=== PATIENT | female | born 1940 | race Caucasian/White ===

== ENCOUNTER 2018-04-16 22:34 | Observation (INO) | payer MEDICARE, OTHER ==
[~2018-04-16] VITALS: Ht 165.1 cm; Wt 104.5 kg
[2018-04-16 23:01] LABS: BASOPHILS % (AUTO) 0 % (0-10); EOSINOPHILS % (AUTO) 0 % (0-10); HEMATOCRIT 40 % (35-52); HEMOGLOBIN 13.3 G/DL (11.5-16.0); LYMPHOCYTES # (AUTO) 1.8 X 10^3 (1.0-4.0); LYMPHOCYTES % (AUTO) 14 % (12-44); MEAN CORPUSCULAR HEMOGLOBIN 30 PG (25-34); MEAN CORPUSCULAR HGB CONC 34 G/DL (32-36); MEAN CORPUSCULAR VOLUME 90 FL (80-99); MONOCYTES # (AUTO) 1.3 X 10^3 (0.0-1.0); MONOCYTES % (AUTO) 10 % (0-12); NEUTROPHILS # (AUTO) 9.7 X 10^3 (1.8-7.8); NEUTROPHILS % (AUTO) 75 % (42-75); PLATELET COUNT 225 10^3/uL (130-400); WHITE BLOOD COUNT 12.8 10^3/uL (4.3-11.0)
--- NOTE | 2018-04-16 23:04 | ED Chest Pain ---
General Chief Complaint: Chest Pain Stated Complaint: CHEST PAIN Source: patient, family (daughter), EMS, longterm records ([facility] ) Exam Limitations: no limitations History of Present Illness Date Seen by Provider: Apr 16, 2018 Time Seen by Provider: 22:28 Initial Comments Chest Pain started 45 minutes prior to arrival. The patient resents by EMS from [facility] with chief complaint she was having some sharp chest pain in her left chest that radiated down to her epigastric region. She does not describe it as being burning and denies a history of GERD or acid reflux. She has no history of coronary disease. She has a fitter/welder and has had a cardiac catheterization Dr. Miranda at [place], [place]. She lived in [place] until a few weeks ago when she went to the hospital for her atrial fibrillation with rapid ventricular response had to be chemically cardioverted and after that was told she could not live alone so they moved her [facility] where her daughter works here in [place]. EMS did not give aspirin because the patient is a stated allergy to aspirin. They did however give her one nitroglycerin which took her pain to 0. She is not currently having any discomfort in her chest and is not reproducible by direct palpation. She said the pain is not worse with deep inspiration. She says she was getting up to brush her teeth and go to bed and started getting short of breath and having the pain and it got worse as she walked back to her chair and sat down. She denies a history of smoking, diabetes, thyroid disease, hyperlipidemia. She says she has a history of congestive heart failure and consistent swelling in her hands and feet and has to have wraps on her feet daily but she does not think that her weight has changed nor has her swelling increased in the last couple weeks. She denies a cough or using oxygen at baseline. She does have a history of COPD. Allergies and Home Medications Allergies Coded Allergies: lisinopril (Verified Allergy, Unknown, 04/16/18) metolazone (Verified Allergy, Unknown, 04/16/18) oxycodone (Verified Allergy, Unknown, 04/16/18) tramadol (Verified Allergy, Unknown, 04/16/18) valdecoxib (Verified Allergy, Unknown, 04/16/18) codeine (Verified Adverse Reaction, Unknown, 04/16/18) fentanyl (Verified Adverse Reaction, Unknown, 04/16/18) hydrocodone (Verified Adverse Reaction, Unknown, 04/16/18) morphine (Verified Adverse Reaction, Unknown, 04/16/18) Patient Home Medication List Home Medication List Reviewed: Yes Review of Systems Review of Systems Constitutional: No chills, No diaphoresis, No fever, No malaise EENTM: No Blurred Vision, No Double Vision Respiratory: Denies Cough, Denies Shortness of Air Cardiovascular: See HPI, Chest Pain; Denies Irregular Heart Rate, Denies Lightheadedness, Denies Palpitations, Denies Syncope Gastrointestinal: See HPI; Denies Abdomen Distended, Denies Abdominal Pain, Denies Constipated, Denies Diarrhea, Denies Nausea Genitourinary: Denies Burning, Denies Discharge, Denies Flank Pain Musculoskeletal: No back pain, No joint pain Past Aqxxgiv-Kciumg-Aoizgh Hx Patient Social History Alcohol Use: Denies Use Recreational Drug Use: No Smoking Status: Never a Smoker Recent Foreign Travel: No Contact w/Someone Who Travel: No Physical Exam Vital Signs Vital Signs - First Documented Capillary Refill : Height, Weight, BMI Height: '" Weight: lbs. oz. kg; BMI Method: General Appearance: No Apparent Distress, WD/WN HEENT: PERRL/EOMI, Pharynx Normal, Moist Mucous Membranes Respiratory: Chest Non Tender, Lungs Clear, Normal Breath Sounds, No Accessory Muscle Use, No Respiratory Distress Cardiovascular: No Gallop, Normal Peripheral Pulses, Systolic Murmur, Irregularly Irregular Gastrointestinal: Normal Bowel Sounds, Non Tender, Soft Extremity: Normal Capillary Refill, Normal Inspection, Pedal Edema (chronic 1+) Neurologic/Psychiatric: Alert, Oriented x3 Progress/Results/Core Measures Results/Orders Lab Results Laboratory Tests Test 04/16/18 22:39 04/17/18 02:24 Range/Units White Blood Count 12.8 H 4.3-11.0 10^3/uL Red Blood Count 4.37 4.35-5.85 10^6/uL Hemoglobin 13.3 11.5-16.0 G/DL Hematocrit 40 35-52 % Mean Corpuscular Volume 90 80-99 FL Mean Corpuscular Hemoglobin 30 25-34 PG Mean Corpuscular Hemoglobin Concent 34 32-36 G/DL Red Cell Distribution Width 18.0 H 10.0-14.5 % Platelet Count 225 130-400 10^3/uL Mean Platelet Volume 12.0 H 7.4-10.4 FL Neutrophils (%) (Auto) 75 42-75 % Lymphocytes (%) (Auto) 14 12-44 % Monocytes (%) (Auto) 10 0-12 % Eosinophils (%) (Auto) 0 0-10 % Basophils (%) (Auto) 0 0-10 % Neutrophils # (Auto) 9.7 H 1.8-7.8 X 10^3 Lymphocytes # (Auto) 1.8 1.0-4.0 X 10^3 Monocytes # (Auto) 1.3 H 0.0-1.0 X 10^3 Eosinophils # (Auto) 0.0 0.0-0.3 10^3/uL Basophils # (Auto) 0.0 0.0-0.1 10^3/uL Prothrombin Time 15.9 H 12.2-14.7 SEC INR Comment 1.3 0.8-1.4 Activated Partial Thromboplast Time 26 24-35 SEC Sodium Level 142 135-145 MMOL/L Potassium Level 3.3 L 3.6-5.0 MMOL/L Chloride Level 96 L 98-107 MMOL/L Carbon Dioxide Level 32 21-32 MMOL/L Anion Gap 14 5-14 MMOL/L Blood Urea Nitrogen 27 H 7-18 MG/DL Creatinine 1.04 0.60-1.30 MG/DL Estimat Glomerular Filtration Rate 51 BUN/Creatinine Ratio 26 Glucose Level 112 H 70-105 MG/DL Calcium Level 8.7 8.5-10.1 MG/DL Corrected Calcium 9.4 8.5-10.1 MG/DL Magnesium Level 2.0 1.8-2.4 MG/DL Total Bilirubin 0.7 0.1-1.0 MG/DL Aspartate Amino Transf (AST/SGOT) 36 H 5-34 U/L Alanine Aminotransferase (ALT/SGPT) 35 0-55 U/L Alkaline Phosphatase 84 40-136 U/L Myoglobin 66.7 10.0-92.0 NG/ML Troponin I 0.044 <0.028 NG/ML B-Type Natriuretic Peptide 101.6 H <100.0 PG/ML Total Protein 6.0 L 6.4-8.2 GM/DL Albumin 3.1 L 3.2-4.5 GM/DL Lipase 50 8-78 U/L My Orders Orders - LEX CAAL Cbc With Automated Diff (04/16/18 22:53) Magnesium (04/16/18 22:53) Chest 1 View, Ap/Pa Only (04/16/18 22:53) Ekg Tracing (04/16/18 22:53) Cardiac Profile 1 (04/16/18 22:53) Comprehensive Metabolic Panel (04/16/18 22:53) Myoglobin Serum (04/16/18 22:53) Protime With Inr (04/16/18 22:53) Partial Thromboplastin Time (04/16/18 22:53) O2 (04/16/18 22:53) Monitor-Rhythm Ecg Trace Only (04/16/18:53) Lipid Panel (04/17/18 06:00) Saline Lock/Iv-Start (04/16/18 22:53) Lipase (04/16/18 22:53) BNP (04/16/18 22:53) Vital Signs/I&O 04/16/18 04/16/18 22:35 22:35 Temp 98.6 Pulse 85 Resp 24 B/P (MAP) 139/88 (105) Pulse Ox 95 O2 Delivery Room Air Room Air Progress Progress Note : Time: 23:04 Progress Note No aspirin secondary to allergy. She's comfortable right now but if her pain comes back we'll try GI cocktail. EKG demonstrates her baseline A. fib without rapid ventricular response. We'll check a BNP, lipase, labs chest x-ray. ED ACS 16 points. Not low risk. This patient is not a candidate for early discharge and should receive a standard chest pain evaluation with delayed troponin testing. Initial ECG Impression Date: Apr 16, 2018 Initial ECG Impression Time: 22:33 Initial ECG Rate: 80 Initial ECG Rhythm: A Fib/Flutter Initial ECG Intervals: QT (490) Initial ECG Impression: Atrial Fibrillation Initial ECG Comparisson: No Previous ECG Available Comment Atrial fibrillation without rapid ventricular response. No ST elevation or depression area Diagnostic Imaging Diagonstic Imaging: Xray Plain Films/CT/US/NM/MRI: chest (1v) Comments No acute cardiopulmonary process noted. Reviewed: Reviewed by Me Departure Communication (Admissions) Time/Spoke to Admitting Phy: 03:40 Discussed case lab EKG imaging findings with Dr. Fonseca she agrees to observe the patient. Time/Spoke to Consulting Phy: 03:25 Discussed case lab imaging findings and EKG with Dr. Oliveira and he agrees with an observation stay for chest pain rule out ACS. Impression Primary Impression: Chest pain Qualified Codes: R07.9 - Chest pain, unspecified Additional Impressions: ACS (acute coronary syndrome) History of atrial fibrillation Disposition: ADMITTED INPATIENT Condition: Stable Admissions Decision to Admit Reason: Admit from ER (General) Decision to Admit/Date: Apr 17, 2018 Time/Decision to Admit Time: 03:38 Departure-Patient Inst. Referrals: RAMIRO LEE MD (PCP/Family) Primary Care Physician Copy Copies To 1: RAMIRO LEE MD, TITUS J Apr 16, 2018 23:04
[2018-04-17] VITALS (9 sets, daily range): BP systolic 104–134; BP diastolic 65–79
[2018-04-17 02:40] LABS: INR 1.3 (0.8-1.4); PROTHROMBIN TIME PATIENT 15.9 SEC (12.2-14.7)
[2018-04-17 02:48] LABS: ALBUMIN 3.1 GM/DL (3.2-4.5); BILIRUBIN,TOTAL 0.7 MG/DL (0.1-1.0); CALCIUM 8.7 MG/DL (8.5-10.1); CREATININE SERUM 1.04 MG/DL (0.60-1.30); POTASSIUM 3.3 MMOL/L (3.6-5.0)
[2018-04-17 02:54] LABS: MYOGLOBIN SERUM 66.7 NG/ML (10.0-92.0)
--- NOTE | 2018-04-17 04:40 | NUR ---
MAUDE MORALES admitted to room 412-1, with an admitting diagnosis of chest pain, on 04/17/18 from AM via , accompanied by staff.MAUDE MORALES introduced to surroundings, call light, bed controls, phone, TV, temperature control, lights, meal times, smoking policy, visitor policy, side rail policy, bathrooms and showers. Patient Rights given to patient in the handbook. MAUDE MORALES verbalizes understanding that [facility] is not responsible for the loss or damage to any personal effects or valuables that are kept in the patients posession during their hospitalization.
[2018-04-17] MEDS ORDERED: ANTACID SUSP 30 ML UDC (MYLANTA) PO PRN (05:30)
[2018-04-17] MEDS ORDERED: BENZONATATE 100 MG (TESSALON) CAPSULE PO PRN ×2 (05:30→11:00)
[2018-04-17] MEDS ORDERED: ONDANSETRON 4 MG/2 ML (SDV) Z0FRAN IV PRN (05:30)
[2018-04-17] MEDS ORDERED: ACETAMINOPHEN 500 MG TAB (TYLENOL) PO PRN (05:30)
[2018-04-17] MEDS ORDERED: NS W/KCL 20 MEQ/L 1,000 ML IV SCH (05:30)
--- NOTE | 2018-04-17 05:49 | Diagnostic Imaging Report ---
INDICATION: Chest pain. COMPARISON: None FINDINGS: Single frontal view of the chest demonstrates normal heart size and pulmonary vascularity. The lungs are well aerated and clear. No large pleural effusion or pneumothorax is seen. The visualized osseous structures show no acute abnormalities. IMPRESSION: 1. No acute cardiopulmonary process. Dictated by: Dictated on workstation # [id number]
[2018-04-17] MEDS: ISOSORBIDE MONONITRATE 30 MG (IMDUR) TAB PO SCH ×2 (06:30→09:52)
[2018-04-17] MEDS ORDERED: RT-ALBUTEROL/IPRATROPIUM 3 ML (DUONEB) VIAL INH PRN (08:15)
[2018-04-17] MEDS ORDERED: SPIRONOLACTONE 25 MG (ALDACTONE) TAB PO SCH (09:00)
[2018-04-17] MEDS ORDERED: BUMETANIDE 1 MG (BUMEX) TAB PO SCH (09:00)
[2018-04-17] MEDS ORDERED: APIXABAN 5 MG (ELIQUIS) TABLET PO SCH ×2 (09:00→21:00)
[2018-04-17] MEDS ORDERED: RT-ALBUTEROL/IPRATROPIUM 3 ML (DUONEB) VIAL INH SCH (09:00)
[2018-04-17] MEDS ORDERED: SERTRALINE 50 MG (ZOLOFT) TABLET PO SCH (09:00)
[2018-04-17] MEDS ORDERED: meTOprolol TARTRATE 25 MG (LOPRESSOR) TABLET PO SCH (09:00)
[2018-04-17] MEDS ORDERED: DULoxetine 30 MG (CYMBALTA) CAP PO SCH (09:00)
[2018-04-17] MEDS ORDERED: DILTIAZEM 60 MG (CARDIZEM) TAB PO SCH (09:00)
[2018-04-17] MEDS ORDERED: ISOS30TA3 PO (09:13)
[2018-04-17] MEDS ORDERED: DILT60TA PO (09:13)
[2018-04-17] MEDS ORDERED: BUME2TAB3 PO (09:13)
[2018-04-17] MEDS ORDERED: LEVO750T39 PO (09:13)
[2018-04-17] MEDS ORDERED: MAGN400T39 PO (09:13)
[2018-04-17] MEDS ORDERED: [UNRECOGNIZED DRUG - CODE] MM (09:13)
[2018-04-17] MEDS ORDERED: APIX5TAB PO (09:13)
[2018-04-17] MEDS ORDERED: DULO60CA58 PO (09:13)
[2018-04-17] MEDS ORDERED: NYST1000 PO (09:13)
[2018-04-17] MEDS ORDERED: ONDA4TAB10 PO (09:13)
[2018-04-17] MEDS ORDERED: MAGIC MOUTHWASH PO (09:13)
[2018-04-17] MEDS ORDERED: BENZ9GEL3 MM (09:13)
[2018-04-17] MEDS ORDERED: PRD20T PO (09:13)
[2018-04-17] MEDS ORDERED: BENZ-36 PO (09:13)
[2018-04-17] MEDS ORDERED: ALB0.5V NEB (09:13)
[2018-04-17] MEDS ORDERED: BUDE10.2 INH (09:13)
[2018-04-17] MEDS ORDERED: ROPI1TAB2 PO (09:13)
[2018-04-17] MEDS ORDERED: POTA20TA15 PO (09:13)
[2018-04-17] MEDS ORDERED: ACET-2267 PO (09:13)
[2018-04-17] MEDS ORDERED: EST30C VG (09:13)
[2018-04-17] MEDS ORDERED: GUAI120013 PO (09:13)
[2018-04-17] MEDS ORDERED: SERT50TA9 PO (09:13)
[2018-04-17] MEDS ORDERED: SPIR25TA5 PO (09:13)
[2018-04-17] MEDS ORDERED: DOXY100T2 PO (09:13)
[2018-04-17] MEDS ORDERED: CALC300T4 PO (09:13)
[2018-04-17] MEDS ORDERED: DRY MOUTH MM (09:19)
--- NOTE | 2018-04-17 09:19 | NUR ---
UPDATED MED REC WITH MAR FROM ROSALEE LIAM
--- NOTE | 2018-04-17 09:59 | Consultation-Cardiology ---
HPI-Cardiology Cardiology Consultation Date of Consultation 04/17/18 Date of Admission Time Seen by Provider: 09:55 Indication: chest pain HPI 77-year-old lady with history of paroxysmal atrial fibrillation, history of chest pain, hypertension. Had an episode of chest pain yesterday evening lasted for few minutes and resolved spontaneously, patient was brought to the emergency room by EMS, since arrival did not have any further episodes of chest pain. Denied any palpitation. Syncope or near syncopal episodes. No claudications. She reported having cardiac catheterization done about [address] Miranda and it was normal, had a cardioversion done 3 weeks ago in [place] and she moved into [facility] Home Medications & Allergies Allergies: Coded Allergies: lisinopril (Verified Allergy, Unknown, 04/16/18) metolazone (Verified Allergy, Unknown, 04/16/18) oxycodone (Verified Allergy, Unknown, 04/16/18) tramadol (Verified Allergy, Unknown, 04/16/18) valdecoxib (Verified Allergy, Unknown, 04/16/18) codeine (Verified Adverse Reaction, Unknown, 04/16/18) fentanyl (Verified Adverse Reaction, Unknown, 04/16/18) hydrocodone (Verified Adverse Reaction, Unknown, 04/16/18) morphine (Verified Adverse Reaction, Unknown, 04/16/18) Home Medication List Reviewed: Yes ZKA-Phunwi-Atizcg Hx Patient Social History Employed/Student: retired Alcohol Use: Denies Use Recreational Drug Use: No Smoking Status: Never a Smoker Recent Foreign Travel: No Recent Infectious Disease Expo: No Recent Hopitalizations: No Physical Abuse Screen: No Sexual Abuse: No Immunizations Up To Date Date of Pneumonia Vaccine: Mar 24, 2018 Date of Influenza Vaccine: Apr 03, 2018 Past Medical History past medical history as described below Family Medical History Family Medical Hx noncontributory to her current medication Review of Systems Constitutional: no symptoms reported, see HPI EENTM: see HPI, no symptoms reported Respiratory: see HPI; No cough, No dyspnea on exertion, No hemoptysis, No orthopnea, No phlegm, No short of breath, No stridor, No wheezing, No other Cardiovascular: see HPI, chest pain; No edema, No Hx of Intervention, No palpitations, No syncope, No vascular heart diseas, No other Gastrointestinal: no symptoms reported, see HPI Genitourinary: no symptoms reported, see HPI Musculoskeletal: no symptoms reported, see HPI Skin: no symptoms reported, see HPI Psychiatric/Neurological: No Symptoms Reported, See HPI Reviewed Test Results Reviewed Test Results Lab Laboratory Tests Test 04/16/18 22:39 04/17/18 02:24 Range/Units White Blood Count 12.8 H 4.3-11.0 10^3/uL Red Blood Count 4.37 4.35-5.85 10^6/uL Hemoglobin 13.3 11.5-16.0 G/DL Hematocrit 40 35-52 % Mean Corpuscular Volume 90 80-99 FL Mean Corpuscular Hemoglobin 30 25-34 PG Mean Corpuscular Hemoglobin Concent 34 32-36 G/DL Red Cell Distribution Width 18.0 H 10.0-14.5 % Platelet Count 225 130-400 10^3/uL Mean Platelet Volume 12.0 H 7.4-10.4 FL Neutrophils (%) (Auto) 75 42-75 % Lymphocytes (%) (Auto) 14 12-44 % Monocytes (%) (Auto) 10 0-12 % Eosinophils (%) (Auto) 0 0-10 % Basophils (%) (Auto) 0 0-10 % Neutrophils # (Auto) 9.7 H 1.8-7.8 X 10^3 Lymphocytes # (Auto) 1.8 1.0-4.0 X 10^3 Monocytes # (Auto) 1.3 H 0.0-1.0 X 10^3 Eosinophils # (Auto) 0.0 0.0-0.3 10^3/uL Basophils # (Auto) 0.0 0.0-0.1 10^3/uL Prothrombin Time 15.9 H 12.2-14.7 SEC INR Comment 1.3 0.8-1.4 Activated Partial Thromboplast Time 26 24-35 SEC Sodium Level 142 135-145 MMOL/L Potassium Level 3.3 L 3.6-5.0 MMOL/L Chloride Level 96 L 98-107 MMOL/L Carbon Dioxide Level 32 21-32 MMOL/L Anion Gap 14 5-14 MMOL/L Blood Urea Nitrogen 27 H 7-18 MG/DL Creatinine 1.04 0.60-1.30 MG/DL Estimat Glomerular Filtration Rate 51 BUN/Creatinine Ratio 26 Glucose Level 112 H 70-105 MG/DL Calcium Level 8.7 8.5-10.1 MG/DL Corrected Calcium 9.4 8.5-10.1 MG/DL Magnesium Level 2.0 1.8-2.4 MG/DL Total Bilirubin 0.7 0.1-1.0 MG/DL Aspartate Amino Transf (AST/SGOT) 36 H 5-34 U/L Alanine Aminotransferase (ALT/SGPT) 35 0-55 U/L Alkaline Phosphatase 84 40-136 U/L Myoglobin 66.7 10.0-92.0 NG/ML Troponin I 0.044 <0.028 NG/ML B-Type Natriuretic Peptide 101.6 H <100.0 PG/ML Total Protein 6.0 L 6.4-8.2 GM/DL Albumin 3.1 L 3.2-4.5 GM/DL Lipase 50 8-78 U/L Physical Exam Vital Signs Vital Signs - First Documented Capillary Refill : Less Than 3 Seconds Height, Weight, BMI Height: 5'5.00" Weight: 230lbs. 5.0oz. [id number]; 38.3 BMI Method:Stated General Appearance: No Apparent Distress, WD/WN Eyes: Bilateral Eye Normal Inspection, Bilateral Eye PERRL, Bilateral Eye EOMI HEENT: PERRL/EOMI, TMs Normal, Normal ENT Inspection, Pharynx Normal Neck: Full Range of Motion, Normal Inspection, Non Tender, Supple, Carotid Bruit Respiratory: Chest Non Tender, Lungs Clear, Normal Breath Sounds, No Accessory Muscle Use, No Respiratory Distress Cardiovascular: Regular Rate, Rhythm, No Edema, No Gallop, No JVD, No Murmur, Normal Peripheral Pulses Gastrointestinal: Normal Bowel Sounds, No Organomegaly, No Pulsatile Mass, Non Tender, Soft Back: Normal Inspection, No CVA Tenderness, No Vertebral Tenderness Extremity: Normal Capillary Refill, Normal Inspection, Normal Range of Motion, Non Tender, No Calf Tenderness, No Pedal Edema Neurologic/Psychiatric: Alert, Oriented x3, No Motor/Sensory Deficits, Normal Mood/Affect Skin: Normal Color, Warm/Dry Lymphatic: No Adenopathy A/P-Cardiology Admission Diagnosis Chest pain Right bundle branch block Atrial fibrillation Hypertension Assessment/Plan Chest pain nonspecific etiology, atypical in presentation, no further episodes were noted, EKG showed baseline right bundle branch block, cardiac enzymes were negative. Reporting having cardiac catheterization about 2 years ago in [place] and it was normal, did not require any stenting. Okay for discharge from cardiology standpoint and follow-up as an outpatient Paroxysmal atrial fibrillation, maintained on Cardizem and Eliquis, using short acting Cardizem once a day, has been following with Dr. Miranda, requesting to transfer to my service. I will arrange for appointment as an outpatient Hypertension, restart home medication monitor blood pressure Hyperlipidemia, monitor lipids Depression/anxiety Okay for discharge from cardiology standpoint and follow-up as an outpatient Clinical Quality Measures DVT/VTE Risk/Contraindication: Risk Factor Score Per Nursin RFS Level Per Nursing on Admit: 4+=Very High TAE PANDA MD Apr 17, 2018 09:59
[2018-04-17] MEDS ORDERED: NON-FORMULARY MEDICATION 1 EA EA (Ondansetron HCl 4 MG) PO PRN (10:00)
[2018-04-17] MEDS ORDERED: NON-FORMULARY MEDICATION 1 EA EA (Acetaminophen (Tylenol Extra Strength) 1,000 MG) PO PRN (10:00)
[2018-04-17] MEDS ORDERED: ONDANSETRON 4 MG (ZOFRAN) ORAL DISSOLVE TAB PO PRN (10:15)
--- NOTE | 2018-04-17 10:34 | Short Stay Summary-Hospitalist ---
History of Present Illness HPI/Chief Complaint CC: Chest pain HPI: This is a 77yoWF newly moved to [place] from [place] who presented to the ER w/chest pain. Patient was admitted to rule out ACS. Patient currently without chest pain and in the midst of DC. Source: patient Exam Limitations: no limitations Date Seen 04/17/18 Time Seen by a Provider: 10:00 Attending Physician Ida Fonseca DO PCP Isiah Sharpe MD Referring Physician Date of Admission Apr 17, 2018 at 03:45 Home Medications & Allergies Home Medications Reviewed patient Home Medication Reconciliation performed by pharmacy medication reconciliations orthophotography technician and/or nursing. Patients Allergies have been reviewed. Allergies Allergies Coded Allergies lisinopril (Verified Allergy, Unknown, 04/16/18) metolazone (Verified Allergy, Unknown, 04/16/18) oxycodone (Verified Allergy, Unknown, 04/16/18) tramadol (Verified Allergy, Unknown, 04/16/18) valdecoxib (Verified Allergy, Unknown, 04/16/18) codeine (Verified Adverse Reaction, Unknown, 04/16/18) fentanyl (Verified Adverse Reaction, Unknown, 04/16/18) hydrocodone (Verified Adverse Reaction, Unknown, 04/16/18) morphine (Verified Adverse Reaction, Unknown, 04/16/18) Past Mbzjolp-Mylkej-Dwoqpj Hx Past Med/Social Hx: Reviewed Nursing Past Med/Soc Hx, Reviewed and Corrections made Patient Social History Marrital Status: single Employed/Student: retired Alcohol Use: Denies Use Recreational Drug Use: No Smoking Status: Never a Smoker Physical Abuse Screen: No Sexual Abuse: No Recent Foreign Travel: No Contact w/other who traveled: No Recent Hopitalizations: No Recent Infectious Disease Expo: No Immunizations Up To Date Date of Pneumonia Vaccine: Mar 24, 2018 Date of Influenza Vaccine: Apr 03, 2018 Seasonal Allergies Seasonal Allergies: No Past Medical History Surgeries: Bladder Surgery, Cardiac, Eye Surgery, Joint Replacement, Rectal Currently Using CPAP: No Currently Using BIPAP: No Cardiac: Atrial Fibrillation, Hypertension Neurological: TIA HEENT: Cataract, Macular Degeneration, Double Vision History of Blood Disorders: No Review of Systems Constitutional: see HPI, weakness EENTM: no symptoms reported Respiratory: no symptoms reported Cardiovascular: chest pain Gastrointestinal: no symptoms reported Genitourinary: no symptoms reported Musculoskeletal: no symptoms reported Skin: no symptoms reported Psychiatric/Neurological: No Symptoms Reported All Other Systems Reviewed Negative Unless Noted: Yes Physical Exam Physical Exam Vital Signs Vital Signs - First Documented Capillary Refill : Less Than 3 Seconds Height, Weight, BMI Height: 5'5.00" Weight: 230lbs. 5.0oz. [id number]; 38.3 BMI Method:Stated General Appearance: No Apparent Distress, WD/WN, Chronically ill, Obese Eyes: Bilateral Eye Normal Inspection, Bilateral Eye PERRL, Bilateral Eye EOMI HEENT: PERRL/EOMI, TMs Normal, Normal ENT Inspection, Pharynx Normal Neck: Full Range of Motion, Normal Inspection, Non Tender, Supple, Carotid Bruit Respiratory: Chest Non Tender, Lungs Clear, Normal Breath Sounds, No Accessory Muscle Use, No Respiratory Distress Cardiovascular: No Edema, No Gallop, No JVD, No Murmur, Normal Peripheral Pulses, Irregularly Irregular Gastrointestinal: Normal Bowel Sounds, No Organomegaly, No Pulsatile Mass, Non Tender, Soft Back: Normal Inspection, No CVA Tenderness, No Vertebral Tenderness Extremity: Normal Capillary Refill, Normal Inspection, Normal Range of Motion, Non Tender, No Calf Tenderness, No Pedal Edema Neurologic/Psychiatric: Alert, Oriented x3, No Motor/Sensory Deficits, Normal Mood/Affect Skin: Normal Color, Warm/Dry Lymphatic: No Adenopathy Results Results/Procedures Labs Laboratory Tests 04/16/18 22:39 04/17/18 02:24 Patient resulted labs reviewed. Short Stay Diagnosis Discharge Diagnosis-Short Stay Admission Diagnosis Assessment: Chest pain AF HTN Final Discharge Diagnosis Assessment: Chest pain AF HTN Conclusion Plan Plan: No evidence of ACS DC home PCP in 1 week Diagnosis/Problems Diagnosis/Problems (1) Chest pain Status: Acute Qualifiers: Qualified Codes: R07.9 - Chest pain, unspecified (2) History of atrial fibrillation Status: Chronic (3) ACS (acute coronary syndrome) Status: Resolved Resolution Date/Time: 04/17/18 @ 14:28 Clinical Quality Measures DVT/VTE Risk/Contraindication: Risk Factor Score Per Nursin RFS Level Per Nursing on Admit: 4+=Very High IDA FONSECA DO Apr 17, 2018 10:34
[2018-04-17] MEDS ORDERED: RT-ALBUTEROL SULF 2.5 MG/3 ML PRE-MIX VIAL IH SCH (10:45)
[2018-04-17] MEDS ORDERED: MENTHOL MM PRN (10:45)
[2018-04-17] MEDS ORDERED: CALCIUM CARBONATE PO PRN (10:45)
[2018-04-17] MEDS ORDERED: BENZONATATE 100 MG PO PRN (10:45)
[2018-04-17] MEDS ORDERED: CALCIUM CARBONATE 500 MG (TUMS) TAB.CHEW PO PRN (11:00)
[2018-04-17] MEDS ORDERED: CHLORASEPTIC LOZENGE MM PRN (11:15)
[2018-04-17] MEDS ORDERED: KCL 20 MEQ TAB (K-DUR) PO SCH (12:00)
[2018-04-17] MEDS ORDERED: ATOR40TA PO (12:44)
[2018-04-17] MEDS ORDERED: METO-333 PO (12:44)
[2018-04-17] MEDS ORDERED: NYSTATIN PO SCH (13:00)
[2018-04-17] MEDS ORDERED: NYSTATIN ORAL SUSP 5 ML UDC PO SCH (13:00)
--- NOTE | 2018-04-17 13:30 | NUR ---
discharge instructions given, verbalized understanding of follow up with Dr Oliveira and new prescriptions, denies pain or sob, IV dc, site without redness or swelling, telemetry dc, report called to jovanny
--- NOTE | 2018-04-17 14:32 | NUR ---
MAUDE MORALES demonstrates understanding of discharge instructions and accurately returns instructions upon questioning. Copy of Post-Discharge Instructions and Medication Discharge Instructions given to patient. MAUDE MORALES is able to manage continuing needs after discharge at [facility]. Patients belongings returned to Patient. Skin dry and intact; no breakdown noted. Patient discharged from [facility]- on04/17/18 at 1425. MAUDE MORALES left floor via W/C, accompanied by staff.
[2018-04-17] MEDS ORDERED: RT-ADVAIR HFA 115/21 MCG PER PUFF IH SCH (20:00)
[2018-04-17] MEDS ORDERED: NON-FORMULARY MEDICATION 1 EA EA (Guaifenesin (Mucinex) 1,200 MG) PO SCH (21:00)
[2018-04-17] MEDS ORDERED: ATORVASTATIN 40 MG (LIPITOR) TABLET PO SCH (21:00)
[2018-04-17] MEDS ORDERED: NON-FORMULARY MEDICATION 1 EA EA (Bumetanide 2 MG) PO SCH (21:00)
[2018-04-17] MEDS ORDERED: guaiFENesin (MUCINEX) 600 MG TAB PO SCH (21:00)
[2018-04-17] MEDS ORDERED: ESTROGENS CONJ. CREAM 30 GM (PREMARIN) TUBE VG SCH (21:00)
[2018-04-17] MEDS ORDERED: DOXYCYCLINE 100 MG (VIBRAMYCIN) TABLET PO SCH (21:00)
[2018-04-17] MEDS ORDERED: rOPINIRole 1 MG (REQUIP) TABLET PO SCH (21:00)
[2018-04-17] MEDS ORDERED: NON-FORMULARY MEDICATION 1 EA EA (Budesonide/Formoterol Fumarate (Symbicort 160-4.5 Mcg In INH SCH (21:00)
[2018-04-17] MEDS ORDERED: NON-FORMULARY MEDICATION 1 EA EA (Doxycycline Hyclate 100 MG) PO SCH (21:00)
[2018-04-17] MEDS ORDERED: NON-FORMULARY MEDICATION 1 EA EA (Ropinirole HCl 1 MG) PO SCH (21:00)
[2018-04-18] MEDS ORDERED: predniSONE 20 MG TAB PO SCH (08:00)
[2018-04-18] MEDS ORDERED: MAGNESIUM OXIDE (MAG-OX)400 MG TAB PO SCH (08:00)
[2018-04-18] MEDS ORDERED: ISOSORBIDE MONONITRATE 30 MG (IMDUR) TAB PO SCH (09:00)
[2018-04-18] MEDS ORDERED: NON-FORMULARY MEDICATION 1 EA EA (Duloxetine HCl 60 MG) PO SCH (09:00)
[2018-04-18] MEDS ORDERED: SPIRONOLACTONE 25 MG (ALDACTONE) TAB PO SCH (09:00)
[2018-04-18] MEDS ORDERED: NON-FORMULARY MEDICATION 1 EA EA (Magnesium Oxide (Magnesium) 400 MG) PO SCH (09:00)
[2018-04-18] MEDS ORDERED: DILTIAZEM 60 MG (CARDIZEM) TAB PO SCH (09:00)
[2018-04-18] MEDS ORDERED: SERTRALINE 50 MG (ZOLOFT) TABLET PO SCH (09:00)
== END 2018-04-17 14:37 ==
LOC: ER 22:36 → 4TH 04-17 03:45
PROVIDERS: ADMIT Internal Medicine; ATTEND Internal Medicine
DX: I24.9 Acute ischemic heart disease, unspecified (principal); R07.9 Chest pain, unspecified; I48.2 Chronic atrial fibrillation; I10 Essential (primary) hypertension; Z88.5 Allergy status to narcotic agent; Z88.8 Allergy status to other drugs, medicaments and biological substances; E78.5 Hyperlipidemia, unspecified; F41.9 Anxiety disorder, unspecified; Z66 Do not resuscitate; F32.9 Major depressive disorder, single episode, unspecified
CPT/HCPCS: 36415; 71045; 80053; 83690; 83735; 83874; 83880; 84484; 85025; 85610; 85730; 93005; 93041; 94640; 94760

== ENCOUNTER → 2018-05-12 | Outpatient (CLI) | payer MEDICARE, OTHER ==
[~2018-05-12] MED LIST: ACET-2267 PO; ALB0.5V NEB; APIX5TAB PO; ATOR40TA PO; BENZ-36 PO; BENZ9GEL3 MM; BUDE10.2 INH; BUME2TAB3 PO; CALC300T4 PO; DILT60TA PO; DOXY100T2 PO; DRY MOUTH MM; DULO60CA58 PO; EST30C VG; GUAI120013 PO; ISOS30TA3 PO; LEVO750T39 PO; MAGIC MOUTHWASH PO; MAGN400T39 PO; METO-333 PO; NYST1000 PO; ONDA4TAB10 PO; POTA20TA15 PO; PRD20T PO; ROPI1TAB2 PO; SERT50TA9 PO; SPIR25TA5 PO; [UNRECOGNIZED DRUG - CODE] MM
[2018-05-12 15:36] LABS: ABG BASE EXCESS 8.9 MMOL/L (-2.5-2.5); ABG OXYGEN SATURATION 95 % (94-100); ABG PCO2 43 MMHG (35-45); ABG PH 7.49 (7.37-7.43); ABG PO2 71 MMHG (79-93); ALLENS TEST POSITIVE; INSPIRED O2 ROOM AIR; VENTILATOR NO
[2018-05-12 15:37] LABS: PATIENT TEMP 98.7
== END ==
LOC: RT 14:59
PROVIDERS: ATTEND Nurse Practitioner Family
DX: R05 Cough (principal); R06.89 Other abnormalities of breathing
CPT/HCPCS: 36600; 82805

== ENCOUNTER → 2018-06-08 | Outpatient (CLI) | payer MEDICARE, OTHER | LOC: CARD 10:25 | PROVIDERS: ATTEND Physician Assistant | DX: R07.89 Other chest pain (principal); I48.0 Paroxysmal atrial fibrillation; I10 Essential (primary) hypertension; R06.00 Dyspnea, unspecified | CPT/HCPCS: 93306 ==

== ENCOUNTER → 2018-06-10 | Outpatient (CLI) | payer MEDICARE, OTHER ==
[~2018-06-10] MED LIST changes: +RT-ALBUTEROL SULF 2.5 MG/3 ML PRE-MIX VIAL INH ONE; +RT-ALBUTEROL SULF 2.5 MG/3 ML PRE-MIX VIAL ONE
--- NOTE | 2018-06-10 14:50 | Diagnostic Imaging Report ---
PROCEDURE: CT chest without contrast. TECHNIQUE: Multiple contiguous axial images were obtained through the chest without the use of intravenous contrast. Auto Exposure Controls were utilized during the CT exam to meet ALARA standards for radiation dose reduction. INDICATION: Cough. No prior studies are available for comparison. No axillary lymphadenopathy is seen. No definite hilar or mediastinal lymphadenopathy is identified. There are coronary arterial calcifications. No pericardial or pleural fluid is identified. The central airways are patent. Parenchymal evaluation demonstrates calcified nodule in the left upper lobe consistent with granuloma. There is some linear scarring or subsegmental atelectasis both lung bases. No infiltrates or masses are seen. Upper abdomen is unremarkable. IMPRESSION: Essentially unremarkable noncontrast CT of the chest. No thoracic lymphadenopathy or evidence of pulmonary mass is identified. Dictated by: Dictated on workstation # [id number]
== END ==
LOC: RAD 11:26
PROVIDERS: ATTEND Nurse Practitioner Family
DX: I48.91 Unspecified atrial fibrillation (principal); J98.4 Other disorders of lung; G47.10 Hypersomnia, unspecified; G47.50 Parasomnia, unspecified
CPT/HCPCS: 71250; 94060; 94726; 94729

== ENCOUNTER → 2018-09-02 | Outpatient (CLI) | payer MEDICARE, MEDICAID ==
[~2018-09-02] VITALS: Ht 165.1 cm; Wt 120.2 kg
[~2018-09-02] MED LIST changes: +CATHETER FLUSH 10 ML SYR IV PRN; +REGADENOSON 0.4 MG/5 ML SYR (LEXISCAN) IV ONE; -RT-ALBUTEROL SULF 2.5 MG/3 ML PRE-MIX VIAL INH ONE; -RT-ALBUTEROL SULF 2.5 MG/3 ML PRE-MIX VIAL ONE
== END ==
LOC: CARD 11:58
PROVIDERS: ATTEND Internal Medicine Cardiovascular Disease
DX: R07.89 Other chest pain (principal); R06.00 Dyspnea, unspecified; I10 Essential (primary) hypertension; E78.2 Mixed hyperlipidemia; G45.9 Transient cerebral ischemic attack, unspecified

== ENCOUNTER → 2018-09-12 | Emergency (ER) | payer MEDICARE, MEDICAID ==
[~2018-09-12] VITALS: Ht 165.1 cm; Wt 115.2 kg
[~2018-09-12] MED LIST changes: +ACETAMINOPHEN 500 MG TAB (TYLENOL) PO PRN; +ATOR40TA70 PO; -CATHETER FLUSH 10 ML SYR IV PRN; +CEFD300C3 PO; +CYCL5TAB PO; +DILT120C94 PO; +FURO20TA4 PO; +FURO40TA4 PO; +LEVA15HF5 INH; +LORA10TA76 PO; +NYST15OI13 TOP; +ONDA4TAB11 PO; -REGADENOSON 0.4 MG/5 ML SYR (LEXISCAN) IV ONE; +TAPE50TA2 PO; +cefTRIAXone FOR IV USE 1,000 MG in WATER (STERILE) FOR INJECTION 10 ML IV ONE
--- OUTSIDE RECORDS SUMMARY | 2018-09-12 14:35 | XMS REPORT | Continuity of Care Document ---
Author Organization Unknown Address Unknown Allergies Active Description Code Type Severity Reaction Onset Reported/Identified Relationship to Patient Clinical Status Yes codeine [id number] Drug Allergy Unknown N/A 04/16/2018 Yes fentanyl [id number] Drug Allergy Unknown N/A 04/16/2018 Yes hydrocodone [id number] Drug Allergy Unknown N/A 04/16/2018 Yes lisinopril [id number] Drug Allergy Unknown N/A 04/16/2018 Yes metolazone [id number] Drug Allergy Unknown N/A 04/16/2018 Yes morphine [id number] Drug Allergy Unknown N/A 04/16/2018 Yes oxycodone [id number] Drug Allergy Unknown N/A 04/16/2018 Yes tramadol [id number] Drug Allergy Unknown N/A 04/16/2018 Yes valdecoxib [id number] Drug Allergy Unknown N/A 04/16/2018 Medications There is no data. Problems Date Dx Coded Attending Type Code Diagnosis Diagnosed By 04/17/2018 DORY LIN DO Ot E78.5 HYPERLIPIDEMIA, UNSPECIFIED 04/17/2018 DORY LIN DO Ot F32.9 MAJOR DEPRESSIVE DISORDER, SINGLE EPISOD 04/17/2018 DORY LIN DO Ot F41.9 ANXIETY DISORDER, UNSPECIFIED 04/17/2018 DORY LIN DO Ot I10 ESSENTIAL (PRIMARY) HYPERTENSION 04/17/2018 DORY LIN DO Ot I24.9 ACUTE ISCHEMIC HEART DISEASE, UNSPECIFIE 04/17/2018 DORY LIN DO Ot I48.2 CHRONIC ATRIAL FIBRILLATION 04/17/2018 DORY LIN DO Ot R07.9 CHEST PAIN, UNSPECIFIED 04/17/2018 DORY LIN DO Ot Z66 DO NOT RESUSCITATE 04/17/2018 DORY LIN DO Ot Z88.5 ALLERGY STATUS TO NARCOTIC AGENT STATUS 04/17/2018 DORY LIN DO Ot Z88.8 ALLERGY STATUS TO OTH DRUG/MEDS/BIOL SUB 04/17/2018 LIN DO, DORY Ot E78.5 HYPERLIPIDEMIA, UNSPECIFIED 04/17/2018 LIN DO, DORY Ot F32.9 MAJOR DEPRESSIVE DISORDER, SINGLE EPISOD 04/17/2018 LIN DO, DORY Ot F41.9 ANXIETY DISORDER, UNSPECIFIED 04/17/2018 LIN DO, DORY Ot I10 ESSENTIAL (PRIMARY) HYPERTENSION 04/17/2018 LIN DO, DORY Ot I24.9 ACUTE ISCHEMIC HEART DISEASE, UNSPECIFIE 04/17/2018 LIN DO, DORY Ot I48.2 CHRONIC ATRIAL FIBRILLATION 04/17/2018 LIN DO, DORY Ot R07.9 CHEST PAIN, UNSPECIFIED 04/17/2018 LIN DO, DORY Ot Z66 DO NOT RESUSCITATE 04/17/2018 LIN DO, DORY Ot Z88.5 ALLERGY STATUS TO NARCOTIC AGENT STATUS 04/17/2018 LIN DO DORY Ot Z88.8 ALLERGY STATUS TO OTH DRUG/MEDS/BIOL SUB 05/13/2018 AMILCAR HAYDEN PACK PULLER Ot R05 COUGH 05/13/2018 AMILCAR HAYDEN PACK PULLER Ot R06.89 OTHER ABNORMALITIES OF BREATHING 05/19/2018 AMILCAR HAYDEN PACK PULLER Ot R05 COUGH 05/19/2018 AMILCAR HAYDEN PACK PULLER Ot R06.89 OTHER ABNORMALITIES OF BREATHING 06/03/2018 AMILCAR HAYDEN PACK PULLER Ot R05 COUGH 06/03/2018 AMILCAR HAYDEN PACK PULLER Ot R06.89 OTHER ABNORMALITIES OF BREATHING 06/10/2018 PADMAJA LEY Ot I10 ESSENTIAL (PRIMARY) HYPERTENSION 06/10/2018 PADMAJA LEY Ot I48.0 PAROXYSMAL ATRIAL FIBRILLATION 06/10/2018 PADMAJA LEY Ot R06.00 DYSPNEA, UNSPECIFIED 06/10/2018 PADMAJA LEY Ot R07.89 OTHER CHEST PAIN 06/22/2018 AMILCAR HAYDEN PACK PULLER Ot R05 COUGH 06/22/2018 AMILCAR HAYDEN PACK PULLER Ot R06.89 OTHER ABNORMALITIES OF BREATHING 06/22/2018 AMILCAR HAYDEN PACK PULLER Ot G47.10 HYPERSOMNIA, UNSPECIFIED 06/22/2018 AMILCAR HAYDEN PACK PULLER Ot G47.50 PARASOMNIA, UNSPECIFIED 06/22/2018 JACKELYN, AMILCAR E PACK PULLER Ot I48.91 UNSPECIFIED ATRIAL FIBRILLATION 06/22/2018 AMILCAR HAYDEN E PACK PULLER Ot 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 06/22/2018 CHITO PA, PADMAJA K Ot I10 ESSENTIAL (PRIMARY) HYPERTENSION 06/22/2018 CHITO PA, PADMAJA K Ot I48.0 PAROXYSMAL ATRIAL FIBRILLATION 06/22/2018 CHITO PA, PADMAJA K Ot R06.00 DYSPNEA, UNSPECIFIED 06/22/2018 CHITO PA, PADMAJA K Ot R07.89 OTHER CHEST PAIN 07/02/2018 CHITO PA, PADMAJA K Ot I10 ESSENTIAL (PRIMARY) HYPERTENSION 07/02/2018 CHITO PA, PADMAJA K Ot I48.0 PAROXYSMAL ATRIAL FIBRILLATION 07/02/2018 CHITO PA, PADMAJA K Ot R06.00 DYSPNEA, UNSPECIFIED 07/02/2018 CHITO PA, PADMAJA K Ot R07.89 OTHER CHEST PAIN 07/03/2018 AMILCAR HAYDEN PACK PULLER Ot G47.10 HYPERSOMNIA, UNSPECIFIED 07/03/2018 AMILCAR HAYDEN E PACK PULLER Ot G47.50 PARASOMNIA, UNSPECIFIED 07/03/2018 BO HAYDENINE E PACK PULLER Ot I48.91 UNSPECIFIED ATRIAL FIBRILLATION 07/03/2018 AMILCAR HAYDEN E PACK PULLER Ot 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 07/20/2018 CHITO PA, PADMAJA K Ot I10 ESSENTIAL (PRIMARY) HYPERTENSION 07/20/2018 CHITO PA, PADMAJA K Ot I48.0 PAROXYSMAL ATRIAL FIBRILLATION 07/20/2018 CHITO PA, PADMAJA K Ot R06.00 DYSPNEA, UNSPECIFIED 07/20/2018 CHITO PA, PADMAJA K Ot R07.89 OTHER CHEST PAIN 09/04/2018 AMARILYS GUERRERO, TAE Bolden Ot E78.2 MIXED HYPERLIPIDEMIA 09/04/2018 AMARILYS GUERRERO, TAE Bolden Ot G45.9 TRANSIENT CEREBRAL ISCHEMIC ATTACK, UNSP 09/04/2018 AMARILYS GUERRERO, TAE Bolden Ot I10 ESSENTIAL (PRIMARY) HYPERTENSION 09/04/2018 TAE PANDA MD Ot R06.00 DYSPNEA, UNSPECIFIED 09/04/2018 TAE PANDA MD Ot R07.89 OTHER CHEST PAIN Procedures There is no data. Results Test Result Range Complete blood count (CBC) with automated white blood cell (WBC) differential - 04/16/18 22:39 Blood leukocytes automated count (number/volume) 12.8 10*3/uL 4.3-11.0 Blood erythrocytes automated count (number/volume) 4.37 10*6/uL 4.35-5.85 Venous blood hemoglobin measurement (mass/volume) 13.3 g/dL 11.5-16.0 Blood hematocrit (volume fraction) 40 % 35-52 Automated erythrocyte mean corpuscular volume 90 [foz_us] 80-99 Automated erythrocyte mean corpuscular hemoglobin (mass per erythrocyte) 30 pg 25-34 Automated erythrocyte mean corpuscular hemoglobin concentration measurement (mass/volume) 34 g/dL 32-36 Automated erythrocyte distribution width ratio 18.0 % 10.0- 14.5 Automated blood platelet count (count/volume) 225 10*3/uL 130-400 Automated blood platelet mean volume measurement 12.0 [foz_us] 7.4-10.4 Automated blood neutrophils/100 leukocytes 75 % 42-75 Automated blood lymphocytes/100 leukocytes 14 % 12-44 Blood monocytes/100 leukocytes 10 % 0-12 Automated blood eosinophils/100 leukocytes 0 % 0-10 Automated blood basophils/100 leukocytes 0 % 0-10 Blood neutrophils automated count (number/volume) 9.7 10*3 1.8-7.8 Blood lymphocytes automated count (number/volume) 1.8 10*3 1.0-4.0 Blood monocytes automated count (number/volume) 1.3 10*3 0.0- 1.0 Automated eosinophil count 0.0 10*3/uL 0.0-0.3 Automated blood basophil count (count/volume) 0.0 10*3/uL 0.0-0.1 PT panel in platelet poor plasma by coagulation assay - 04/17/18 02:24 Prothrombin time (PT) in platelet poor plasma by coagulation assay 15.9 s 12.2-14.7 INR in platelet poor plasma or blood by coagulation assay 1.3 0.8-1.4 Activated partial thromboplastin time (aPTT) in platelet poor plasma bycoagulation assay - 04/17/18 02:24 Activated partial thromboplastin time (aPTT) in platelet poor plasma bycoagulation assay 26 s 24-35 Comprehensive metabolic panel - 04/17/18 02:24 Serum or plasma sodium measurement (moles/volume) 142 mmol/L 135-145 Serum or plasma potassium measurement (moles/volume) 3.3 mmol/L 3.6-5.0 Serum or plasma chloride measurement (moles/volume) 96 mmol/L 98-107 Carbon dioxide 32 mmol/L 21-32 Serum or plasma anion gap determination (moles/volume) 14 mmol/L 5-14 Serum or plasma urea nitrogen measurement (mass/volume) 27 mg/dL 7-18 Serum or plasma creatinine measurement (mass/volume) 1.04 mg/dL 0.60-1.30 Serum or plasma urea nitrogen/creatinine mass ratio 26 NRG Serum or plasma creatinine measurement with calculation of estimated glomerular filtration rate 51 NRG Serum or plasma glucose measurement (mass/volume) 112 mg/dL 70-105 Serum or plasma calcium measurement (mass/volume) 8.7 mg/dL 8.5-10.1 Serum or plasma total bilirubin measurement (mass/volume) 0.7 mg/dL 0.1-1.0 Serum or plasma alkaline phosphatase measurement (enzymatic activity/volume) 84 U/L 40-136 Serum or plasma aspartate aminotransferase measurement (enzymatic activity/volume) 36 U/L 5-34 Serum or plasma alanine aminotransferase measurement (enzymatic activity/volume) 35 U/L 0-55 Serum or plasma protein measurement (mass/volume) 6.0 g/dL 6.4-8.2 Serum or plasma albumin measurement (mass/volume) 3.1 g/dL 3.2-4.5 CALCIUM CORRECTED 9.4 mg/dL 8.5-10.1 Magnesium - 04/17/18 02:24 Magnesium 2.0 mg/dL 1.8-2.4 Serum or plasma troponin i.cardiac measurement (mass/volume) - 04/17/18 02:24 Serum or plasma troponin i.cardiac measurement (mass/volume) 0.044 ng/mL <0.028 Myoglobin, serum - 04/17/18 02:24 Myoglobin, serum 66.7 ng/mL 10.0-92.0 Lipase - 04/17/18 02:24 Lipase 50 U/L 8-78 Serum or plasma lithium measurement (moles/volume) - 04/17/18 02:24 BNP level 101.6 pg/mL <100.0 Serum or plasma troponin i.cardiac measurement (mass/volume) - 04/17/18 12:15 Serum or plasma troponin i.cardiac measurement (mass/volume) 0.044 ng/mL <0.028 Arterial blood gas measurement - 05/12/18 15:18 Blood pCO2 43 mm[Hg] 35-45 Blood pO2 71 mm[Hg] 79-93 Arterial blood bicarbonate measurement (moles/volume) 33 mmol/L 23-27 Arterial blood base excess by calculation 8.9 mmol/L -2.5-2.5 Arterial blood oxygen saturation measurement 95 % 94-100 * Inhaled oxygen flow rate ROOM AIR NRG Arterial blood pH measurement with patient temperature correction 7.49 7.37-7.43 Arterial blood carbon dioxide, total measurement (moles/volume) 34.0 mmol/L 21.0-31.0 Body site LEFT RADIAL NRG Assessment of wrist artery patency prior to arterial puncture POSITIVE NRG Setting of ventilation mode NO NRG Measurement of body temperature 98.7 NRG Encounters ACCT No. Visit Date/Time Discharge Status Pt. Type Provider Facility Loc./Unit Complaint [id number] 09/02/2018 11:58:00 09/02/2018 23:59:59 CLS Outpatient TAE PANDA MD [facility] CARD ANTERIOR CHEST WALL PAIN [id number] 06/10/2018 11:26:00 06/10/2018 23:59:59 CLS Outpatient AMILCAR HAYDEN APRN [facility] RAD AF, OTHER ABNORMALITIES OF LUNG, COUGH [id number] 06/08/2018 10:25:00 06/08/2018 23:59:59 CLS Outpatient PADMAJA LEY [facility] CARD ANTERIOR CHEST WALL PAIN,HTN [id number] 05/13/2018 16:42:00 05/13/2018 23:59:59 CLS Preadmit AMILCAR HAYDEN APRN [facility] SLEEP AF, OTHER ABNORMALITIES OF LUNG, COUGH [id number] 05/13/2018 16:39:00 05/13/2018 23:59:59 CLS Preadmit AMILCAR HAYDEN APRN [facility] RT AF, OTHER ABNORMALITIES OF LUNG, COUGH [id number] 05/12/2018 14:59:00 05/12/2018 23:59:59 CLS Outpatient AMILCAR HAYDEN APRN [facility] RT OTHER ABN OF BREATHING,COUGH [id number] 04/16/2018 22:37:00 04/17/2018 12:45:00 DIS Inpatient DORY LIN DO [facility] 4TH CP R/O ACS,BRONCHITIS
--- NOTE | 2018-09-12 14:59 | ED General ---
General Chief Complaint: - Urinary Stated Complaint: CONFUSION / SOA / ABD PAIN Nursing Triage Note: PT TO TRIAGE BY WHEELCHAIR WITH COMPLAINT OF BURNING WHILE URINATING, INCREASED CONFUSION, INCREASED SOA, AND INCREASED SWELLING IN FEET. STATES SYMPTOMS HAVE BEEN GOING FOR THE LAST 4 DAYS. STATES SENT OUT A URINE SPECIMEN YESTERDAY. Nursing Sepsis Screen: No Definite Risk Source of Information: Patient History of Present Illness Date Seen by Provider: Sep 12, 2018 Time Seen by Provider: 14:47 Initial Comments PT ARRIVES VIA POV FROM [facility] PT STATES SHE HAS FELT "WASHED OUT" FOR THE LAST 3 DAYS C/O NAUSEA, NO VOMITING C/O DIARRHEA X 3 TODAY STATES SHE HAS NOT BEEN EATING OR DRINKING BECAUSE SHE DOESN'T FEEL GOOD HAS TEMP OF 100 ON ARRIVAL HERE C/O PAIN/ BURNING ON URINATION FOR THE LAST 3 DAYS C/O PELVIC PRESSURE C/O MILD SHORTNESS OF BREATH, NO COUGH NO CHEST PAIN PT WITH SOME INCREASED CONFUSION THE LAST FEW DAYS--STATES SHE HAS BEEN SEEING THINGS THAT AREN'T THERE. PT MOVED TO [facility] FROM [place] EARLIER THIS YEAR. ADMITTED HERE IN APR FOR CHEST PAIN, AND HAD HAD BEEN DX WITH ATRIAL FIBRILLATION EARLIER THIS YEAR AND HAD BEEN CARDIOVERTED IN [place], THEN CAME HERE TO LIVE AT [facility] Allergies and Home Medications Allergies Coded Allergies: lisinopril (Verified Allergy, Unknown, 04/16/18) metolazone (Verified Allergy, Unknown, 04/16/18) oxycodone (Verified Allergy, Unknown, 04/16/18) tramadol (Verified Allergy, Unknown, 04/16/18) valdecoxib (Verified Allergy, Unknown, 04/16/18) codeine (Verified Adverse Reaction, Unknown, 04/16/18) fentanyl (Verified Adverse Reaction, Unknown, 04/16/18) hydrocodone (Verified Adverse Reaction, Unknown, 04/16/18) morphine (Verified Adverse Reaction, Unknown, 04/16/18) Home Medications Acetaminophen 500 Mg Tablet, 1,000 MG PO Q6H PRN for PAIN-MILD, (Reported) TAKES 2 (500MG) TABLETS Albuterol Sulfate 2.5 Mg/0.5 Ml Vial.neb, 2.5 MG NEB Q4H, (Reported) Apixaban 5 Mg Tablet, 5 MG PO BID, (Reported) Atorvastatin Calcium 40 Mg Tablet, 40 MG PO HS Prescribed by: DORY LIN on 04/17/18 1244 Benzocaine 9 Gm Gel..gram., MM UD PRN for GUM PAIN, (Reported) Benzonatate 100 Mg Capsule, 100 MG PO TID PRN for COUGH, (Reported) Budesonide/Formoterol Fumarate 10.2 Gm Hfa.aer.ad, 2 PUFF INH BID, (Reported) Bumetanide 2 Mg Tablet, 2 MG PO BID, (Reported) Calcium Carbonate 300 Mg Tab.chew, 1-2 TAB.CHEW PO UD PRN for INDIGESTION, (Reported) Cefdinir 300 Mg Capsule, 300 MG PO BID Prescribed by: CHARLIE BURR on 09/12/18 1700 Diltiazem HCl 60 Mg Tablet, 60 MG PO DAILY, (Reported) Duloxetine HCl 60 Mg Capsule.dr, 60 MG PO DAILY, (Reported) Estrogens Conjugated 30 Gm Cr, VG MoWeFr, (Reported) Guaifenesin 1,200 Mg Tab.er.12h, 1,200 MG PO BID, (Reported) Isosorbide Mononitrate 30 Mg Tab.er.24h, 30 MG PO DAILY, (Reported) Magnesium Oxide 400 Mg Tablet, 400 MG PO DAILY, (Reported) Menthol 5.8 Mg Lozenge, 1 LOZENGE MM UD PRN for COUGH, (Reported) Metoprolol Tartrate 25 Mg Tablet, 25 MG PO BID Prescribed by: DORY LIN on 04/17/18 1244 Nystatin 100,000 Unit/1 Ml Oral.susp, 5 ML PO QID, (Reported) Ondansetron HCl 4 Mg Tablet, 4 MG PO Q6H PRN for NAUSEA/VOMITING-1ST LINE, (Reported) Potassium Chloride 20 Meq Tab.er.prt, 20 MEQ PO DAILY, (Reported) Prednisone 20 Mg Tab, 40 MG PO DAILY, (Reported) TAKES 2 (20MG) TABLETS Ropinirole HCl 1 Mg Tablet, 1 MG PO HS, (Reported) Sertraline HCl 50 Mg Tablet, 50 MG PO DAILY, (Reported) Spironolactone 25 Mg Tablet, 25 MG PO DAILY, (Reported) [Dry Mouth Lozenge] , 1 LOZENGE MM UD PRN for DRY MOUTH, (Reported) [Magic Mouthwash] , 5-10 ML PO EVERY 6-8 HOURS PRN for SORE MOUTH, (Reported) SWISH AND SPIT Patient Home Medication List Home Medication List Reviewed: Yes Review of Systems Review of Systems Constitutional: no symptoms reported Respiratory: no symptoms reported Cardiovascular: no symptoms reported Gastrointestinal: see HPI Genitourinary: see HPI Musculoskeletal: no symptoms reported Skin: no symptoms reported Psychiatric/Neurological: See HPI Past Xnbrmzz-Ctcbql-Dyncld Hx Patient Social History Alcohol Use: Denies Use Recreational Drug Use: No Smoking Status: Never a Smoker Recent Foreign Travel: No Contact w/Someone Who Travel: No Recent Infectious Disease Expo: No Recent Hopitalizations: No Immunizations Up To Date Tetanus Booster (TDap): Unknown Date of Pneumonia Vaccine: Mar 24, 2018 Date of Influenza Vaccine: Apr 03, 2018 Seasonal Allergies Seasonal Allergies: No Past Medical History Surgeries: Yes (BILATERAL KNEE REPLACEMENTS; BILATERAL ANKLE TENDON REPAIRS; BILATERAL CATARACT SURGERY; CERVICAL SPINE FUSION X 2; ANTERIOR AND POSTERIOR REPAIR; CARDIAC CATH--NO INTERVENTION) Bladder Surgery, Cardiac, Eye Surgery, Joint Replacement, Orthopedic, Rectal Respiratory: No Currently Using CPAP: No Currently Using BIPAP: No Cardiac: Yes (CHF; enlarged heart (right side); RBBB; CHEMICAL CARDIOVERSION FOR NEW ONSET ATRIAL FIBRILLATION EARLY 2018) Atrial Fibrillation, Chronic Edema/Swelling, Heart Murmur, High Cholesterol, Hypertension Neurological: Yes TIA CAR RUNNER History: Menopausal Genitourinary: Yes (BLADDER REPAIR) Gastrointestinal: Yes (RECTAL REPAIR) Musculoskeletal: Yes (neck fusion (twice); tendon repair monik ankles; bilat knee replacement) Arthritis Endocrine: No HEENT: Yes (double vision from TIA pt stated) Cataract, Macular Degeneration, Double Vision Cancer: No Psychosocial: Yes Anxiety, Depression Integumentary: No Blood Disorders: No Physical Exam Vital Signs Vital Signs - First Documented 09/12/18 14:36 Temp 100.0 Pulse 70 Resp 16 B/P (MAP) 111/54 (73) Pulse Ox 97 O2 Delivery Room Air Capillary Refill : Less Than 3 Seconds Height, Weight, BMI Height: 5'5.00" Weight: 254lbs. 0.0oz. 115.633108op; 44.1 BMI Method:Stated General Appearance: No Apparent Distress, Obese HEENT: PERRL/EOMI Neck: Normal Inspection Respiratory: Normal Breath Sounds, No Accessory Muscle Use, No Respiratory Distress Cardiovascular: Regular Rate, Rhythm, No JVD, Systolic Murmur (1-2/6) Gastrointestinal: Soft, Tenderness (MILD SUPRAPUBIC) Extremity: Normal Range of Motion, Non Tender, No Calf Tenderness, Pedal Edema (1+ BILATERALLY) Neurologic/Psychiatric: Alert, Oriented x3, No Motor/Sensory Deficits, Normal Mood/Affect, plush dresser II-XII Norm as Tested Skin: Normal Color, Warm/Dry Focused Exam Lactate Level 09/12/18 15:05: Lactic Acid Level 2.45*H 09/12/18 17:35: Lactic Acid Level Laboratory Tests Test 09/12/18 15:05 09/12/18 17:35 Lactic Acid Level 2.45 MMOL/L (0.50-2.00) *H Progress/Results/Core Measures Suspected Sepsis Recent Fever Within 48 Hours: No Infection Criteria Present: None New/Unexplained Altered Menta: No Sepsis Screen: No Definite Risk SIRS Temperature:100.0 Pulse: 70 Respiratory Rate: 16 Laboratory Tests 09/12/18 15:05: White Blood Count 5.9 Blood Pressure 111 /54 Mean: 73 09/12/18 15:05: Lactic Acid Level 2.45*H 09/12/18 17:35: Laboratory Tests 09/12/18 15:05: Creatinine 1.17, INR Comment 1.6H, Platelet Count 144, Total Bilirubin 0.8 Results/Orders Lab Results Laboratory Tests Test 09/12/18 15:05 09/12/18 15:14 09/12/18 15:26 09/12/18 17:35 Range/Units White Blood Count 5.9 4.3-11.0 10^3/uL Red Blood Count 4.31 L 4.35-5.85 10^6/uL Hemoglobin 12.1 11.5-16.0 G/DL Hematocrit 36 35-52 % Mean Corpuscular Volume 84 80-99 FL Mean Corpuscular Hemoglobin 28 25-34 PG Mean Corpuscular Hemoglobin Concent 34 32-36 G/DL Red Cell Distribution Width 14.3 10.0-14.5 % Platelet Count 144 130-400 10^3/uL Mean Platelet Volume 12.2 H 7.4-10.4 FL Neutrophils (%) (Auto) 52 42-75 % Lymphocytes (%) (Auto) 26 12-44 % Monocytes (%) (Auto) 21 H 0-12 % Eosinophils (%) (Auto) 0 0-10 % Basophils (%) (Auto) 1 0-10 % Neutrophils # (Auto) 3.1 1.8-7.8 X 10^3 Lymphocytes # (Auto) 1.5 1.0-4.0 X 10^3 Monocytes # (Auto) 1.2 H 0.0-1.0 X 10^3 Eosinophils # (Auto) 0.0 0.0-0.3 10^3/uL Basophils # (Auto) 0.0 0.0-0.1 10^3/uL Neutrophils % (Manual) 62 % Lymphocytes % (Manual) 11 % Monocytes % (Manual) 16 % Basophils % (Manual) 1 % Reactive Lymphocytes 10 % Hypochromasia MODERATE Prothrombin Time 20.1 H 12.2-14.7 SEC INR Comment 1.6 H 0.8-1.4 Activated Partial Thromboplast Time 40 H 24-35 SEC Sodium Level 131 L 135-145 MMOL/L Potassium Level 4.0 3.6-5.0 MMOL/L Chloride Level 96 L 98-107 MMOL/L Carbon Dioxide Level 25 21-32 MMOL/L Anion Gap 10 5-14 MMOL/L Blood Urea Nitrogen 20 H 7-18 MG/DL Creatinine 1.17 0.60-1.30 MG/DL Estimat Glomerular Filtration Rate 45 BUN/Creatinine Ratio 17 Glucose Level 115 H 70-105 MG/DL Lactic Acid Level 2.45 *H 0.50-2.00 MMOL/L Calcium Level 8.7 8.5-10.1 MG/DL Corrected Calcium 9.3 8.5-10.1 MG/DL Total Bilirubin 0.8 0.1-1.0 MG/DL Aspartate Amino Transf (AST/SGOT) 23 5-34 U/L Alanine Aminotransferase (ALT/SGPT) 9 0-55 U/L Alkaline Phosphatase 110 40-136 U/L Total Protein 6.8 6.4-8.2 GM/DL Albumin 3.2 3.2-4.5 GM/DL Glucometer 110 70-110 MG/DL Urine Color YELLOW Urine Clarity CLEAR Urine pH 5 5-9 Urine Specific [place] 1.010 L 1.016-1.022 Urine Protein NEGATIVE NEGATIVE Urine Glucose (UA) NEGATIVE NEGATIVE Urine Ketones NEGATIVE NEGATIVE Urine Nitrite NEGATIVE NEGATIVE Urine Bilirubin NEGATIVE NEGATIVE Urine Urobilinogen NORMAL NORMAL MG/DL Urine Leukocyte Esterase 3+ H NEGATIVE Urine RBC (Auto) 1+ H NEGATIVE Urine RBC NONE /HPF Urine WBC 50-100 H /HPF Urine Squamous Epithelial Cells 2-5 /HPF Urine Crystals NONE /LPF Urine Bacteria MODERATE H /HPF Urine Casts PRESENT /LPF Urine Hyaline Casts 10-25 H /LPF Urine Mucus NEGATIVE /LPF Urine Culture Indicated CULTURE PENDING My Orders Orders - CHARLIE BURR DO Accucheck Stat ONCE (09/12/18 14:47) Ed Iv/Invasive Line Start (09/12/18 14:47) Ekg Tracing (09/12/18 14:47) Monitor-Rhythm Ecg Trace Only (09/12/18 14:47) Straight Cath For Spec.-Adult (09/12/18 14:47) Cbc With Automated Diff (09/12/18 14:47) Comprehensive Metabolic Panel (09/12/18 14:47) Blood Culture (09/12/18 14:47) Urinalysis (09/12/18 14:47) Urine Culture (09/12/18 14:47) Protime With Inr (09/12/18 14:47) Partial Thromboplastin Time (09/12/18 14:47) Chest 1 View, Ap/Pa Only (09/12/18 14:47) Acetaminophen Tablet (Tylenol Tablet) (09/12/18 15:00) Ed Iv/Invasive Line Start (09/12/18 14:47) Ed Iv/Invasive Line Start (09/12/18 14:47) Vital Signs Adult Sepsis Patie Q15M (09/12/18 14:47) O2 (09/12/18 14:47) Remove Rings In Anticipation O (09/12/18 14:47) Lactic Acid Analyzer (09/12/18 14:47) Manual Differential (09/12/18 15:05) Ceftriaxone For Iv Use (Rocephin For I (09/12/18 16:30) Medications Given in ED Current Medications Medications Dose Ordered Sig/Teodora Route Start Time Stop Time Status Last Admin Dose Admin Acetaminophen 1,000 mg ONCE PRN PO 09/12/18 15:00 09/12/18 17:24 DC 09/12/18 17:24 1,000 MG Ceftriaxone Sodium 1000 mg/ Sterile Water 10 ml @ 200 mls/hr ONCE ONCE IV 09/12/18 16:30 09/12/18 16:32 DC 09/12/18 17:24 200 MLS/HR Vital Signs/I&O 09/12/18 09/12/18 14:36 15:40 Temp 100.0 100.0 Pulse 70 70 Resp 16 16 B/P (MAP) 111/54 (73) 111/54 (73) Pulse Ox 97 97 O2 Delivery Room Air Room Air Capillary Refill : Less Than 3 Seconds Blood Pressure Mean: 73 Progress Note : Progress Note UNEVENTFUL ER STAY PT REMAINED PLEASANT, AND NO EVIDENCE OF CONFUSION VITALS STABLE PT WANTS TO GO HOME. ECG Initial ECG Impression Date: Sep 12, 2018 Initial ECG Impression Time: 14:59 Initial ECG Rate: 72 Initial ECG Rhythm: Normal Sinus (RBBB) Initial ECG Comparisson: Unchanged Departure Impression Primary Impression: Urinary tract infection Disposition: 01 HOME, SELF-CARE (ASSISTED LIVING) Condition: Stable Departure-Patient Inst. Referrals: RAMIRO LEE MD (PCP/Family) Primary Care Physician Patient Instructions: Urinary Tract Infection, Adult (DC) Add. Discharge Instructions: INCREASE YOUR FLUID INTAKE TYLENOL NEEDED FOR PAIN OR FEVER FOLLOW UP WITH DR. LEE IN 2-3 DAYS All discharge instructions reviewed with patient and/or family. Voiced understanding. Scripts Cefdinir (Cefdinir) 300 Mg Capsule 300 MG PO BID for FOR INFECTION, #20 CAP Prov: CHARLIE BURR DO 09/12/18 CHARLIE BURR DO Sep 12, 2018 14:59
[2018-09-12 15:22] LABS: BASOPHILS % (AUTO) 1 % (0-10); EOSINOPHILS % (AUTO) 0 % (0-10); HEMATOCRIT 36 % (35-52); HEMOGLOBIN 12.1 G/DL (11.5-16.0); LYMPHOCYTES # (AUTO) 1.5 X 10^3 (1.0-4.0); LYMPHOCYTES % (AUTO) 26 % (12-44); MEAN CORPUSCULAR HEMOGLOBIN 28 PG (25-34); MEAN CORPUSCULAR HGB CONC 34 G/DL (32-36); MEAN CORPUSCULAR VOLUME 84 FL (80-99); MEAN PLATELET VOLUME 12.2 FL (7.4-10.4); MONOCYTES # (AUTO) 1.2 X 10^3 (0.0-1.0); MONOCYTES % (AUTO) 21 % (0-12); NEUTROPHILS # (AUTO) 3.1 X 10^3 (1.8-7.8); NEUTROPHILS % (AUTO) 52 % (42-75); PLATELET COUNT 144 10^3/uL (130-400); RED CELL DISTRIBUTION WIDTH 14.3 % (10.0-14.5); WHITE BLOOD COUNT 5.9 10^3/uL (4.3-11.0)
[2018-09-12 15:31] LABS: BILIRUBIN,URINE NEGATIVE (NEGATIVE); CLARITY,URINE CLEAR; COLOR,URINE YELLOW; GLUCOSE, URINE (UA) NEGATIVE (NEGATIVE); KETONES,URINE NEGATIVE (NEGATIVE); LEUKOCYTE ESTERASE ,URINE 3+ (NEGATIVE); NITRITE,URINE NEGATIVE (NEGATIVE); PH,URINE 5 (5-9); PROTEIN,URINE NEGATIVE (NEGATIVE); UROBILINOGEN,URINE NORMAL (NORMAL)
[2018-09-12 15:33] LABS: INR 1.6 (0.8-1.4); PROTHROMBIN TIME PATIENT 20.1 SEC (12.2-14.7)
[2018-09-12 15:40] VITALS: BP 111/54
[2018-09-12 15:40] LABS: ALBUMIN 3.2 GM/DL (3.2-4.5); BILIRUBIN,TOTAL 0.8 MG/DL (0.1-1.0); CALCIUM 8.7 MG/DL (8.5-10.1); CREATININE SERUM 1.17 MG/DL (0.60-1.30); TOTAL PROTEIN 6.8 GM/DL (6.4-8.2)
[2018-09-12 15:47] LABS: BACTERIA,URINE MODERATE /HPF; WBC,URINE 50-100 /HPF
[2018-09-12 15:53] LABS: LYMPHOCYTES % (MANUAL) 11 %; MONOCYTES % (MANUAL) 16 %; NEUTROPHILS % (MANUAL) 62 %
[2018-09-12 15:54] LABS: BASOPHILS % (MANUAL) 1 %; HYPOCHROMASIA MODERATE; REACTIVE LYMPHOCYTES 10 %
--- NOTE | 2018-09-12 16:40 | Diagnostic Imaging Report ---
Indication: Dyspnea. Comparison: 04/16/2018. Discussion: Single portable upright view of the chest was obtained. Stable normal heart size. Opacities are noted within the right midlung and left lung base which are nonspecific and could be seen with atelectasis, less likely pneumonia. Antecedent granulomatous disease is present, benign. No pleural fluid or pneumothorax. No osseous abnormality. Impression: Infiltrates within the right midlung and left lower lung likely represent atelectasis though pneumonia is not entirely excluded. Dictated by: Dictated on workstation # [id number]
--- NOTE | 2018-09-12 18:02 | NUR ---
LAB CALLED ME LACTIC ACID OF 2.[address] AND NURSE KNOW NOW.
[2018-09-12 18:50] VITALS: BP 114/61
== END | disposition home or self-care (01) ==
LOC: EDUNIT# 14:31 → ER 14:32
DX: N39.0 Urinary tract infection, site not specified (principal); I48.91 Unspecified atrial fibrillation; I11.0 Hypertensive heart disease with heart failure; I50.9 Heart failure, unspecified; E78.00 Pure hypercholesterolemia, unspecified; F41.9 Anxiety disorder, unspecified; F32.9 Major depressive disorder, single episode, unspecified; Z86.73 Personal history of transient ischemic attack (TIA), and cerebral infarction without residual deficits; Z88.8 Allergy status to other drugs, medicaments and biological substances; Z88.5 Allergy status to narcotic agent; Z96.653 Presence of artificial knee joint, bilateral; Z98.1 Arthrodesis status
CPT/HCPCS: 36415; 51701; 71045; 80053; 81000; 82962; 83605; 85007; 85027; 85610; 85730; 87040; 87077; 87088; 87186; 93005; 93041; 96374

== ENCOUNTER 2018-09-13 21:53 | Inpatient (IN) | payer MEDICARE, MEDICAID ==
[~2018-09-13] VITALS: Ht 165.1 cm; Wt 119.3 kg
[~2018-09-13 21:53] MED LIST changes: -ACETAMINOPHEN 500 MG TAB (TYLENOL) PO PRN; -ATOR40TA70 PO; -CYCL5TAB PO; -DILT120C94 PO; -FURO20TA4 PO; -FURO40TA4 PO; -LEVA15HF5 INH; -LORA10TA76 PO; -NYST15OI13 TOP; -ONDA4TAB11 PO; -TAPE50TA2 PO; -cefTRIAXone FOR IV USE 1,000 MG in WATER (STERILE) FOR INJECTION 10 ML IV ONE
--- OUTSIDE RECORDS SUMMARY | 2018-09-13 21:58 | XMS REPORT | Continuity of Care Document ---
Author Organization Unknown Address Unknown Allergies Active Description Code Type Severity Reaction Onset Reported/Identified Relationship to Patient Clinical Status Yes codeine [id number] Drug Allergy Unknown N/A 04/16/2018 Yes fentanyl [id number] Drug Allergy Unknown N/A 04/16/2018 Yes hydrocodone [id number] Drug Allergy Unknown N/A 04/16/2018 Yes lisinopril [id number] Drug Allergy Unknown N/A 04/16/2018 Yes metolazone [id number] Drug Allergy Unknown N/A 04/16/2018 Yes morphine [id number] Drug Allergy Unknown N/A 04/16/2018 Yes oxycodone [id number] Drug Allergy Unknown N/A 04/16/2018 Yes tramadol [id number] Drug Allergy Unknown N/A 04/16/2018 Yes valdecoxib [id number] Drug Allergy Unknown N/A 04/16/2018 Medications There [...] TO OTH DRUG/MEDS/BIOL SUB 05/13/2018 AMILCAR HAYDEN [employer] PRES[employer] Ot R05 COUGH 05/13/2018 AMILCAR HAYDEN VICE PRESIDENT [employer] Ot R06.89 OTHER ABNORMALITIES OF BREATHING 05/19/2018 AMILCAR HAYDEN [employer]ICE PRESIDENT [employer] Ot R05 COUGH 05/19/2018 AMILCAR HAYDEN VICE PRESIDENT [employer] Ot R06.89 OTHER ABNORMALITIES OF BREATHING 06/03/2018 AMILCAR HAYDEN VICE PRESIDENT [employer] Ot R05 COUGH 06/03/2018 AMILCAR HAYDEN VICE PRESIDENT [employer] Ot R06.89 OTHER ABNORMALITIES OF BREATHING 06/10/2018 PADMAJA LEY Ot I10 ESSENTIAL (PRIMARY) HYPERTENSION 06/10/2018 PADMAJA LEY Ot I48.0 PAROXYSMAL ATRIAL FIBRILLATION 06/10/2018 PADMAJA LEY Ot R06.00 DYSPNEA, UNSPECIFIED 06/10/2018 PADMAJA LEY Ot R07.89 OTHER CHEST PAIN 06/22/2018 AMILCAR HAYDEN [employer]ICE PRESIDENT [employer] Ot R05 COUGH 06/22/2018 AMILCAR HAYDEN VICE PRESIDENT [employer] Ot R06.89 OTHER ABNORMALITIES OF BREATHING 06/22/2018 AMILCAR HAYDEN [employer]ICE PRESIDENT [employer] Ot G47.10 HYPERSOMNIA, UNSPECIFIED 06/22/2018 AMILCAR HAYDEN [employer]ICE PRESIDENT [employer] Ot G47.50 PARASOMNIA, UNSPECIFIED 06/22/2018 JACKELYN, AMILCAR E VICE PRESIDENT [employer] Ot I48.91 UNSPECIFIED ATRIAL FIBRILLATION 06/22/2018 AMILCAR HAYDEN E [employer]ICE PRESIDENT [employer] Ot 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 Type Provider Facility Loc./Unit Complaint [id number] 09/02/2018 11:58:00 09/02/2018 23:59:59 CLS Outpatient TAE PANDA MD Via [facility] CARD ANTERIOR CHEST WALL PAIN [id number] 06/10/2018 11:26:00 06/10/2018 23:59:59 CLS Outpatient AMILCAR HAYDEN APRN [facility] RAD AF, OTHER ABNORMALITIES OF LUNG, COUGH [id number] 06/08/2018 10:25:00 06/08/2018 23:59:59 CLS Outpatient PADMAJA LEY [facility] CARD ANTERIOR CHEST WALL PAIN,HTN [id number] 05/13/2018 16:42:00 05/13/2018 23:59:59 CLS Preadmit AMILCAR HAYDEN APRN [facility] SLEEP AF, OTHER ABNORMALITIES OF LUNG, COUGH [id number] 05/13/2018 16:39:00 05/13/2018 23:59:59 CLS Preadmit AMILCAR HAYDEN APRN [facility] RT AF, OTHER ABNORMALITIES OF LUNG, COUGH [id number] 05/12/2018 14:59:00 05/12/2018 23:59:59 CLS Outpatient AMILCAR HAYDEN APRN [facility] RT OTHER ABN OF BREATHING,COUGH [id number] 04/16/2018 22:37:00 04/17/2018 12:45:00 DIS Inpatient DORY LIN DO Via [facility] 4TH CP R/O ACS,BRONCHITIS
[2018-09-13] MEDS ORDERED: NS IV 1000 ML 1,000 ML IV ONE (22:07)
[2018-09-13] MEDS ORDERED: ACETAMINOPHEN 500 MG TAB (TYLENOL) PO STA (22:07)
[2018-09-13] MEDS ORDERED: RT-ALBUTEROL/IPRATROPIUM 3 ML (DUONEB) VIAL INH ONE (22:15)
[2018-09-13 22:29] LABS: BASOPHILS % (AUTO) 0 % (0-10); EOSINOPHILS % (AUTO) 1 % (0-10); HEMATOCRIT 35 % (35-52); LYMPHOCYTES # (AUTO) 1.6 X 10^3 (1.0-4.0); LYMPHOCYTES % (AUTO) 26 % (12-44); MEAN CORPUSCULAR HEMOGLOBIN 28 PG (25-34); MEAN CORPUSCULAR HGB CONC 34 G/DL (32-36); MEAN CORPUSCULAR VOLUME 82 FL (80-99); MEAN PLATELET VOLUME 12.3 FL (7.4-10.4); MONOCYTES # (AUTO) 1.3 X 10^3 (0.0-1.0); MONOCYTES % (AUTO) 20 % (0-12); NEUTROPHILS # (AUTO) 3.4 X 10^3 (1.8-7.8); NEUTROPHILS % (AUTO) 53 % (42-75); PLATELET COUNT 117 10^3/uL (130-400); RED CELL DISTRIBUTION WIDTH 14.2 % (10.0-14.5); WHITE BLOOD COUNT 6.4 10^3/uL (4.3-11.0)
--- NOTE | 2018-09-13 22:36 | ED Fall/Injury ---
General Chief Complaint: Hip/Pelvic Problems Stated Complaint: FALL Nursing Triage Note: Patient experienced and unwitnessed fall when she was on her way to the bathroom she complains or right hip pain as well as right rib pain. Source: patient, EMS Exam Limitations: no limitations History of Present Illness Date Seen by Provider: Sep 13, 2018 Time Seen by Provider: 22:15 Initial Comments 78-year-old female patient presents to the emergency department with complaints of right hip pain and right lower rib pain after falling while at [facility] this evening. Patient reports getting up to go to the bathroom and she states she lost her balance when she was trying to grab her walker. Patient also reports falling this a.m., but denies any injury at that time. Patient denies hitting her head, loss of consciousness, headache, or dizziness. Patient does have chronic neck pain, chronic back pain, chronic bilateral hip pain, and chronic bilateral knee pain. Patient is currently being treated for UTI. Location Injury Occurred: [facility] Occurred: this evening Injuries/Pain Location: chest (rt ribs), lower extremity (rt hip) Context: lost balance Loss of Consciousness: no loss of consciousness Modifying Factors: Worse With Movement Allergies and Home Medications Allergies Coded Allergies: lisinopril (Verified Allergy, Unknown, 09/13/18) metolazone (Verified Allergy, Unknown, 09/13/18) oxycodone (Verified Allergy, Unknown, 09/13/18) tramadol (Verified Allergy, Unknown, 09/13/18) valdecoxib (Verified Allergy, Unknown, 09/13/18) codeine (Verified Adverse Reaction, Unknown, 09/13/18) fentanyl (Verified Adverse Reaction, Unknown, 09/13/18) hydrocodone (Verified Adverse Reaction, Unknown, 09/13/18) morphine (Verified Adverse Reaction, Unknown, 09/13/18) Home Medications Acetaminophen 500 Mg Tablet, 1,000 MG PO Q6H PRN for PAIN-MILD, (Reported) TAKES 2 (500MG) TABLETS Albuterol Sulfate 2.5 Mg/0.5 Ml Vial.neb, 2.5 MG NEB Q4H, (Reported) Apixaban 5 Mg Tablet, 5 MG PO BID, (Reported) Atorvastatin Calcium 40 Mg Tablet, 40 MG PO HS Prescribed by: DORY LIN on 04/17/18 1244 Benzocaine 9 Gm Gel..gram., MM UD PRN for GUM PAIN, (Reported) Benzonatate 100 Mg Capsule, 100 MG PO TID PRN for COUGH, (Reported) Budesonide/Formoterol Fumarate 10.2 Gm Hfa.aer.ad, 2 PUFF INH BID, (Reported) Bumetanide 2 Mg Tablet, 2 MG PO BID, (Reported) Calcium Carbonate 300 Mg Tab.chew, 1-2 TAB.CHEW PO UD PRN for INDIGESTION, (Reported) Cefdinir 300 Mg Capsule, 300 MG PO BID Prescribed by: CHARLIE BURR on 09/12/18 1700 Diltiazem HCl 60 Mg Tablet, 60 MG PO DAILY, (Reported) Duloxetine HCl 60 Mg Capsule.dr, 60 MG PO DAILY, (Reported) Estrogens Conjugated 30 Gm Cr, VG MoWeFr, (Reported) Guaifenesin 1,200 Mg Tab.er.12h, 1,200 MG PO BID, (Reported) Isosorbide Mononitrate 30 Mg Tab.er.24h, 30 MG PO DAILY, (Reported) Magnesium Oxide 400 Mg Tablet, 400 MG PO DAILY, (Reported) Menthol 5.8 Mg Lozenge, 1 LOZENGE MM UD PRN for COUGH, (Reported) Metoprolol Tartrate 25 Mg Tablet, 25 MG PO BID Prescribed by: DORY LIN on 04/17/18 1244 Nystatin 100,000 Unit/1 Ml Oral.susp, 5 ML PO QID, (Reported) Ondansetron HCl 4 Mg Tablet, 4 MG PO Q6H PRN for NAUSEA/VOMITING-1ST LINE, (Reported) Potassium Chloride 20 Meq Tab.er.prt, 20 MEQ PO DAILY, (Reported) Prednisone 20 Mg Tab, 40 MG PO DAILY, (Reported) TAKES 2 (20MG) TABLETS Ropinirole HCl 1 Mg Tablet, 1 MG PO HS, (Reported) Sertraline HCl 50 Mg Tablet, 50 MG PO DAILY, (Reported) Spironolactone 25 Mg Tablet, 25 MG PO DAILY, (Reported) [Dry Mouth Lozenge] , 1 LOZENGE MM UD PRN for DRY MOUTH, (Reported) [Magic Mouthwash] , 5-10 ML PO EVERY 6-8 HOURS PRN for SORE MOUTH, (Reported) SWISH AND SPIT Patient Home Medication List Home Medication List Reviewed: Yes Review of Systems Review of Systems Constitutional: No diaphoresis, No dizziness; fever (noted by EMS to have a low grade fever) Eyes: No Symptoms Reported Ears, Nose, Mouth, Throat: no symptoms reported Respiratory: cough (chronic cough); No hemoptysis; phlegm, short of breath (increased SOB); No stridor, No wheezing; other (rt lower rib pain) Cardiovascular: No chest pain; edema (chronic pedal edema); No palpitations, No syncope Gastrointestinal: No abdominal pain, No constipation, No diarrhea, No hematemesis, No loss of appetite, No melena, No nausea, No vomiting Genitourinary: No decreased output, No dysuria, No frequency, No hematuria Musculoskeletal: see HPI Skin: no symptoms reported Psychiatric/Neurological: Denies Headache, Denies Numbness, Denies Paresthesia, Denies Tingling, Denies Weakness All Other Systems Reviewed Negative Unless Noted: Yes (Negative excepted noted.) Past Rjzeetv-Mhxurc-Wliagn Hx Past Med/Social Hx: Reviewed and Corrections made Patient Social History Alcohol Use: Denies Use Recreational Drug Use: No Recent Foreign Travel: No Contact w/Someone Who Travel: No Recent Infectious Disease Expo: No Recent Hopitalizations: No Immunizations Up To Date Tetanus Booster (TDap): Unknown Date of Pneumonia Vaccine: Mar 24, 2018 Date of Influenza Vaccine: Apr 03, 2018 Seasonal Allergies Seasonal Allergies: No Past Medical History Surgeries: Yes Bladder Surgery, Cardiac, Eye Surgery, Joint Replacement, Orthopedic, Rectal Respiratory: Yes COPD Currently Using CPAP: No Currently Using BIPAP: No Cardiac: Yes Atrial Fibrillation, Chronic Edema/Swelling, Heart Murmur, High Cholesterol, Hypertension 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 Genitourinary: Yes (BLADDER REPAIR) Bladder Infection, Renal Failure Gastrointestinal: Yes (RECTAL REPAIR) Musculoskeletal: Yes (neck fusion (twice); tendon repair monik ankles; bilat knee replacement) Arthritis Endocrine: No HEENT: Yes (double vision from TIA pt stated) Cataract, Macular Degeneration, Double Vision Cancer: No Psychosocial: Yes Anxiety, Depression Integumentary: No Blood Disorders: No Family Medical History Reviewed Nursing Family Hx No Pertinent Family Hx Physical Exam Vital Signs Vital Signs - First Documented 09/13/18 09/13/18 22:05 22:30 Temp 100.4 Pulse 82 Resp 14 B/P (MAP) 119/59 (79) Pulse Ox 94 O2 Delivery Room Air O2 Flow Rate 2.00 Capillary Refill : Less Than 3 Seconds Height, Weight, BMI Height: 5'5.00" Weight: 254lbs. 0.0oz. 115.740865zm; 44.1 BMI Method:Stated General Appearance: WD/WN, no apparent distress HEENT: PERRL/EOMI, normal ENT inspection, TMs normal, pharynx normal; No other (no evidence of raccoon eyes or gray sign. no hemotympanum. normocephalic, atrauamtic.) Neck: non-tender, full range of motion, supple, normal inspection Cardiovascular: normal peripheral pulses, regular rate, rhythm, no gallop, no murmur Respiratory: lungs clear, normal breath sounds, no respiratory distress, no accessory muscle use, other (rt anterior lower ribs TTP without ecchymosis, swelling or deformity.) Peripheral Pulses: 2+ Dorsalis Pedis (R), 2+ Left Dors-Pedis (L), 2+ Radial Pulses (R), 2+ Radial Pulses (L) Gastrointestinal: normal bowel sounds, non tender, soft, no organomegaly; No distended, No other (no ecchymosis to the abd wall.) Back: normal inspection, no CVA tenderness, no vertebral tenderness Extremities: normal capillary refill, pelvis stable, pedal edema (2+ bilat), other (rt hip TTP without ecchymosis, swelling or deformity. no shortening or rotation of the RLE. Left hip, bilat knees, bilat distal legs, bilat ankles and feet nontender without swelling or deformity. Left wrist TTP with a small hematoma to the left posterior wrist. ) Neurologic/Psychiatric: head mechanic II-XII nml as tested, no motor/sensory deficits, alert, normal mood/affect, oriented x 3 Skin: normal color, warm/dry; No cyanosis, No cool; ecchymosis (left posterior wrist) Progress/Results/Core Measures Results/Orders Lab Results Laboratory Tests Test 09/13/18 22:16 09/14/18 00:44 Range/Units White Blood Count 6.4 4.3-11.0 10^3/uL Red Blood Count 4.31 L 4.35-5.85 10^6/uL Hemoglobin 12.0 11.5-16.0 G/DL Hematocrit 35 35-52 % Mean Corpuscular Volume 82 80-99 FL Mean Corpuscular Hemoglobin 28 25-34 PG Mean Corpuscular Hemoglobin Concent 34 32-36 G/DL Red Cell Distribution Width 14.2 10.0-14.5 % Platelet Count 117 L 130-400 10^3/uL Mean Platelet Volume 12.3 H 7.4-10.4 FL Neutrophils (%) (Auto) 53 42-75 % Lymphocytes (%) (Auto) 26 12-44 % Monocytes (%) (Auto) 20 H 0-12 % Eosinophils (%) (Auto) 1 0-10 % Basophils (%) (Auto) 0 0-10 % Neutrophils # (Auto) 3.4 1.8-7.8 X 10^3 Lymphocytes # (Auto) 1.6 1.0-4.0 X 10^3 Monocytes # (Auto) 1.3 H 0.0-1.0 X 10^3 Eosinophils # (Auto) 0.0 0.0-0.3 10^3/uL Basophils # (Auto) 0.0 0.0-0.1 10^3/uL Neutrophils % (Manual) 83 % Lymphocytes % (Manual) 21 % Monocytes % (Manual) 25 % Band Neutrophils 1 % Sodium Level 128 L 135-145 MMOL/L Potassium Level 4.1 3.6-5.0 MMOL/L Chloride Level 92 L 98-107 MMOL/L Carbon Dioxide Level 27 21-32 MMOL/L Anion Gap 9 5-14 MMOL/L Blood Urea Nitrogen 21 H 7-18 MG/DL Creatinine 1.30 0.60-1.30 MG/DL Estimat Glomerular Filtration Rate 40 BUN/Creatinine Ratio 16 Glucose Level 107 H 70-105 MG/DL Lactic Acid Level 1.49 0.50-2.00 MMOL/L Calcium Level 9.0 8.5-10.1 MG/DL Corrected Calcium 9.8 8.5-10.1 MG/DL Magnesium Level 1.5 L 1.8-2.4 MG/DL Total Bilirubin 0.8 0.1-1.0 MG/DL Aspartate Amino Transf (AST/SGOT) 34 5-34 U/L Alanine Aminotransferase (ALT/SGPT) 11 0-55 U/L Alkaline Phosphatase 111 40-136 U/L Troponin I < 0.028 <0.028 NG/ML B-Type Natriuretic Peptide 109.1 H <100.0 PG/ML Total Protein 6.7 6.4-8.2 GM/DL Albumin 3.0 L 3.2-4.5 GM/DL TSH [place] Testing 1.68 0.35-4.94 UIU/ML Urine Color YELLOW Urine Clarity CLEAR Urine pH 6.5 5-9 Urine Specific [place] 1.005 L 1.016-1.022 Urine Protein NEGATIVE NEGATIVE Urine Glucose (UA) NEGATIVE NEGATIVE Urine Ketones NEGATIVE NEGATIVE Urine Nitrite NEGATIVE NEGATIVE Urine Bilirubin NEGATIVE NEGATIVE Urine Urobilinogen NORMAL NORMAL MG/DL Urine Leukocyte Esterase 1+ H NEGATIVE Urine RBC (Auto) NEGATIVE NEGATIVE Urine RBC NONE /HPF Urine WBC RARE /HPF Urine Squamous Epithelial Cells RARE /HPF Urine Crystals NONE /LPF Urine Bacteria TRACE /HPF Urine Casts NONE /LPF Urine Mucus NEGATIVE /LPF Urine Culture Indicated NO My Orders Orders - JENNI AMEZCUA Ed Iv/Invasive Line Start (09/13/18 22:07) Ekg Tracing (09/13/18 22:07) O2 (09/13/18 22:07) Monitor-Rhythm Ecg Trace Only (09/13/18 22:07) Wrist, Left, 3 Views Or More (09/13/18 22:07) Pelvis With Right Hip 2-3views (09/13/18 22:07) Ct Head/Cervical Spine Wo (09/13/18 22:07) BNP (09/13/18 22:07) Cbc With Automated Diff (09/13/18 22:07) Comprehensive Metabolic Panel (09/13/18 22:07) Lactic Acid Analyzer (09/13/18 22:07) Thyroid Analyzer (09/13/18 22:07) Troponin I (09/13/18 22:07) Blood Culture (09/13/18 22:07) Ns Iv 1000 Ml (Sodium Chloride 0.9%) (09/13/18 22:07) Albuterol/Ipra Inhalation Soln (Duoneb I (09/13/18 22:15) Acetaminophen Tablet (Tylenol Tablet) (09/13/18 22:07) Svn Small Volume Nebulizer (09/13/18 22:07) Magnesium (09/13/18 22:07) Ct Chest Wo (09/13/18 22:27) Manual Differential (09/13/18 22:16) Ua Culture If Indicated (09/13/18 22:46) Ondansetron Injection (Zofran Injectio (09/14/18 00:00) Hydrocodone/Apap 5/325 Tablet (Lortab 5 (09/14/18 00:00) Magnesium 1 Gm/100 Ml Ivpb (Magnesium Weller (09/14/18 00:00) Medications Given in ED Current Medications Medications Dose Ordered Sig/Teodora Route Start Time Stop Time Status Last Admin Dose Admin Acetaminophen/ Hydrocodone Bitart 1 tab ONCE ONCE PO 09/14/18 00:00 09/14/18 00:01 DC 09/14/18 00:33 1 TAB Albuterol/ Ipratropium 3 ml ONCE ONCE INH 09/13/18 22:15 09/13/18 22:16 DC 09/13/18 22:30 3 ML Magnesium Sulfate/ Dextrose 100 ml @ 100 mls/hr ONCE ONCE IV 09/14/18 00:00 09/14/18 00:59 DC 09/14/18 00:32 100 MLS/HR Ondansetron HCl 8 mg ONCE ONCE IVP 09/14/18 00:00 09/14/18 00:01 DC 09/14/18 00:32 8 MG Sodium Chloride 1,000 ml @ 0 mls/hr Q0M ONCE IV 09/13/18 22:07 09/13/18 22:12 DC 09/13/18 22:21 0 MLS/HR Vital Signs/I&O 09/13/18 09/13/18 09/13/18 09/13/18 22:05 22:21 22:25 22:30 Temp 100.4 100.4 Pulse 82 Resp 14 B/P (MAP) 119/59 (79) Pulse Ox 94 98 94 O2 Delivery Room Air Room Air Nasal Cannula O2 Flow Rate 2.00 Blood Pressure Mean: 79 Initial ECG Impression Date: Sep 13, 2018 Initial ECG Impression Time: 22:20 Initial ECG Rate: 77 Initial ECG Rhythm: Normal Sinus Initial ECG Comparisson: Unchanged Comment Sinus rhythm with RBBB. ECG reviewed by Dr. Turner Diagnostic Imaging Diagonstic Imaging: CT Plain Films/CT/US/NM/MRI: c-spine, head Comments Negative CT head. Posterior fusion C1-C2 in the anterior cervical fusion C4 to C5. No definite fracture is noted. No acute findings per [facility] report Reviewed: Other ([facility] report reviewed) Diagonstic Imaging: CT Plain Films/CT/US/NM/MRI: chest Comments No acute findings per [facility] report. Reviewed: Other ([facility] report reviewed by me) Diagonstic Imaging: Xray Plain Films/CT/US/NM/MRI: other (left wrist) Comments no acute bony abnormality Reviewed: Reviewed/Discussed (with Dr. Turner) Diagonstic Imaging: Xray Plain Films/CT/US/NM/MRI: pelvis, hip Comments no acute bony abnormality noted. Reviewed: Reviewed/Discussed (with dr. turner) Focused Exam Lactate Level 09/13/18 22:16: Lactic Acid Level 1.49 Lactic Acid Level Laboratory Tests Test 09/13/18 22:16 Lactic Acid Level 1.49 MMOL/L (0.50-2.00) Departure Communication (Admissions) Time/Spoke to Admitting Phy: 01:20 Patient seen and evaluated. Initial labs, left wrist x-ray, CT head/neck, CT chest, and pelvis with right hip x-ray obtained. Patient given 1 L of normal saline and 1 g of magnesium sulfate. We'll plan for admission for hyponatremia, UTI, hypomagnesemia, and generalized weakness. Impression Primary Impression: Hyponatremia Additional Impressions: Hypomagnesemia UTI (urinary tract infection) Qualified Codes: N30.00 - Acute cystitis without hematuria Generalized weakness Disposition: ADMITTED INPATIENT Condition: Improved Admissions Decision to Admit Reason: Admit from ER (General) Decision to Admit/Date: Sep 14, 2018 Time/Decision to Admit Time: 01:20 Departure-Patient Inst. Referrals: RAMIRO LEE MD (PCP/Family) Primary Care Physician JENNI AMEZCUA Sep 13, 2018 22:36
[2018-09-13 22:54] LABS: ALANINE AMINOTRANSFERASE 11 U/L (0-55); ALKALINE PHOSPHATASE 111 U/L (40-136); BILIRUBIN,TOTAL 0.8 MG/DL (0.1-1.0); BUN/CREATININE RATIO 16; CARBON DIOXIDE 27 MMOL/L (21-32); CHLORIDE 92 MMOL/L (98-107); GFR ESTIMATED 40; GLUCOSE 107 MG/DL (70-105); MAGNESIUM 1.5 MG/DL (1.8-2.4); POTASSIUM 4.1 MMOL/L (3.6-5.0); SODIUM 128 MMOL/L (135-145); TOTAL PROTEIN 6.7 GM/DL (6.4-8.2)
[2018-09-13 23:14] LABS: TSH (THYROID ANALYZER) 1.68 UIU/ML (0.35-4.94)
[2018-09-13 23:26] LABS: BAND NEUTROPHILS 1 %; LYMPHOCYTES % (MANUAL) 21 %; MONOCYTES % (MANUAL) 25 %; NEUTROPHILS % (MANUAL) 83 %
[2018-09-14] MEDS ORDERED: HYDROcodone/APAP 5 MG/325 MG (LORTAB) TAB PO ONE
[2018-09-14] MEDS ORDERED: ONDANSETRON 4 MG/2 ML (SDV) Z0FRAN IVP ONE
[2018-09-14 00:51] LABS: BILIRUBIN,URINE NEGATIVE (NEGATIVE); CLARITY,URINE CLEAR; COLOR,URINE YELLOW; GLUCOSE, URINE (UA) NEGATIVE (NEGATIVE); KETONES,URINE NEGATIVE (NEGATIVE); LEUKOCYTE ESTERASE ,URINE 1+ (NEGATIVE); NITRITE,URINE NEGATIVE (NEGATIVE); PH,URINE 6.5 (5-9); PROTEIN,URINE NEGATIVE (NEGATIVE); UROBILINOGEN,URINE NORMAL (NORMAL)
[2018-09-14 01:03] LABS: BACTERIA,URINE TRACE /HPF; SQUAMOUS EPITHELIAL CELL,UR RARE /HPF; WBC,URINE RARE /HPF
--- NOTE | 2018-09-14 01:30 | NUR ---
Note constance in EDM - 09/14/18 at 0132 by [id number] v/o dr stewart while ago. pt needs rest of the ems bag ivf. iopened it up w/o at this charted time.
--- NOTE | 2018-09-14 01:33 | NUR ---
disregard my charting as above error wrong pt.
--- OUTSIDE RECORDS SUMMARY | 2018-09-14 03:09 | XMS REPORT | Continuity of Care Document ---
Author Organization Unknown Address Unknown Allergies Active Description Code Type Severity Reaction Onset Reported/Identified Relationship to Patient Clinical Status Yes codeine [id number] Drug Allergy Unknown N/A 04/16/2018 Yes fentanyl [id number] Drug Allergy Unknown N/A 04/16/2018 Yes hydrocodone [id number] Drug Allergy Unknown N/A 04/16/2018 Yes lisinopril [id number] Drug Allergy Unknown N/A 04/16/2018 Yes metolazone [id number] Drug Allergy Unknown N/A 04/16/2018 Yes morphine [id number] Drug Allergy Unknown N/A 04/16/2018 Yes oxycodone [id number] Drug Allergy Unknown N/A 04/16/2018 Yes tramadol [id number] Drug Allergy Unknown N/A 04/16/2018 Yes valdecoxib [id number] Drug Allergy Unknown N/A 04/16/2018 Medications There [...] TO OTH DRUG/MEDS/BIOL SUB 05/13/2018 AMILCAR HAYDEN [employer] OPERATOR Ot R05 COUGH 05/13/2018 AMILCAR HAYDEN CH[employer]PER G[employer] OPERATOR Ot R06.89 OTHER ABNORMALITIES OF BREATHING 05/19/2018 AMILCAR HAYDEN [employer] OPERATOR Ot R05 COUGH 05/19/2018 AMILCAR HAYDEN CH[employer]PER G[employer] OPERATOR Ot R06.89 OTHER ABNORMALITIES OF BREATHING 06/03/2018 AMILCAR HAYDEN [employer]PER G[employer] OPERATOR Ot R05 COUGH 06/03/2018 AMILCAR HAYDEN CH[employer]PER G[employer] OPERATOR Ot R06.89 OTHER ABNORMALITIES OF BREATHING 06/10/2018 PADMAJA LEY Ot I10 ESSENTIAL (PRIMARY) HYPERTENSION 06/10/2018 PADMAJA LEY Ot I48.0 PAROXYSMAL ATRIAL FIBRILLATION 06/10/2018 PADMAJA LEY Ot R06.00 DYSPNEA, UNSPECIFIED 06/10/2018 PADMAJA LEY Ot R07.89 OTHER CHEST PAIN 06/22/2018 AMILCAR HAYDEN [employer] G[employer] OPERATOR Ot R05 COUGH 06/22/2018 AMILCAR HAYDEN CH[employer] G[employer] OPERATOR Ot R06.89 OTHER ABNORMALITIES OF BREATHING 06/22/2018 AMILCAR HAYDEN CHOPPER GUN OPERATOR Ot G47.10 HYPERSOMNIA, UNSPECIFIED 06/22/2018 AMILCRA HAYDEN CHOPPER GUN OPERATOR Ot G47.50 PARASOMNIA, UNSPECIFIED 06/22/2018 JACKELYN, AMILCAR E CHOPPER GUN OPERATOR Ot I48.91 UNSPECIFIED ATRIAL FIBRILLATION 06/22/2018 AMILCAR HAYDEN E [employer]PER GUN OPERATOR Ot 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 Type Provider Facility Loc./Unit Complaint [id number] 09/02/2018 11:58:00 09/02/2018 23:59:59 CLS Outpatient TAE PANDA MD [facility] CARD ANTERIOR CHEST WALL PAIN [id number] 06/10/2018 11:26:00 06/10/2018 23:59:59 CLS Outpatient AMILCAR HAYDEN APRN [facility] RAD AF, OTHER ABNORMALITIES OF LUNG, COUGH [id number] 06/08/2018 10:25:00 06/08/2018 23:59:59 CLS Outpatient PADMAJA LEY [facility] CARD ANTERIOR CHEST WALL PAIN,HTN [id number] 05/13/2018 16:42:00 05/13/2018 23:59:59 CLS Preadmit AMILCAR HAYDEN APRN [facility] SLEEP AF, OTHER ABNORMALITIES OF LUNG, COUGH [id number] 05/13/2018 16:39:00 05/13/2018 23:59:59 CLS Preadmit AMILCAR HAYDEN APRN [facility] RT AF, OTHER ABNORMALITIES OF LUNG, COUGH [id number] 05/12/2018 14:59:00 05/12/2018 23:59:59 CLS Outpatient AMILCAR HAYDEN APRN [facility] RT OTHER ABN OF BREATHING,COUGH [id number] 04/16/2018 22:37:00 04/17/2018 12:45:00 DIS Inpatient DORY LIN DO [facility] 4TH CP R/O ACS,BRONCHITIS
--- NOTE | 2018-09-14 03:15 | NUR ---
"MAUDE MORALES admitted to room 409-1, with an admitting diagnosis of HYPONATREMIA | HYPOMAGNESIA | UTI |, on 09/14/18 from ED via BED, accompanied by ED STAFF.MAUDE MORALES introduced to surroundings, call light, bed controls, phone, TV, temperature control, lights, meal times, smoking policy, visitor policy, side rail policy, bathrooms and showers. Patient Rights given to patient in the handbook.MAUDE MORALES verbalizes understanding that [facility] is not responsible for the loss or damage to any personal effects or valuables that are kept in the patients posession during their hospitalization."
[2018-09-14 03:37] VITALS: BP 113/60
[2018-09-14 04:19] VITALS: BP 125/58
[2018-09-14] MEDS ORDERED: ONDANSETRON 4 MG/2 ML (SDV) Z0FRAN IV PRN (04:45)
[2018-09-14] MEDS: cefTRIAXone 1,000 MG/SWFI 10 ML IV PUSH IV SCH ×2 (04:56)
[2018-09-14] MEDS: NS IV 1000 ML 1,000 ML IV SCH ×3 (04:57→23:02)
[2018-09-14] MEDS: HYDROcodone/APAP 5 MG/325 MG (LORTAB) TAB PO PRN ×3 (04:57→13:58)
[2018-09-14 05:35] LABS: BASOPHILS % (AUTO) 0 % (0-10); EOSINOPHILS % (AUTO) 0 % (0-10); HEMATOCRIT 33 % (35-52); LYMPHOCYTES # (AUTO) 1.7 X 10^3 (1.0-4.0); LYMPHOCYTES % (AUTO) 25 % (12-44); MEAN CORPUSCULAR HEMOGLOBIN 28 PG (25-34); MEAN CORPUSCULAR HGB CONC 34 G/DL (32-36); MEAN CORPUSCULAR VOLUME 83 FL (80-99); MEAN PLATELET VOLUME 12.7 FL (7.4-10.4); MONOCYTES # (AUTO) 1.4 X 10^3 (0.0-1.0); MONOCYTES % (AUTO) 20 % (0-12); NEUTROPHILS # (AUTO) 3.8 X 10^3 (1.8-7.8); NEUTROPHILS % (AUTO) 55 % (42-75); PLATELET COUNT 100 10^3/uL (130-400); RED CELL DISTRIBUTION WIDTH 14.3 % (10.0-14.5)
[2018-09-14 05:57] LABS: ALBUMIN 2.7 GM/DL (3.2-4.5); BILIRUBIN,TOTAL 0.7 MG/DL (0.1-1.0); CALCIUM 8.4 MG/DL (8.5-10.1); CREATININE SERUM 1.16 MG/DL (0.60-1.30); MAGNESIUM 1.7 MG/DL (1.8-2.4); POTASSIUM 4.2 MMOL/L (3.6-5.0); TOTAL PROTEIN 6.1 GM/DL (6.4-8.2)
[2018-09-14] MEDS: ACETAMINOPHEN 325 MG TABLET PO SCH ×4 (06:26→22:39)
--- NOTE | 2018-09-14 06:26 | Diagnostic Imaging Report ---
PROCEDURE: CT chest without contrast. TECHNIQUE: Multiple contiguous axial images were obtained through the chest without the use of intravenous contrast. Auto Exposure Controls were utilized during the CT exam to meet ALARA standards for radiation dose reduction. INDICATION: Right-sided pain following a non-witnessed fall. Chest CT compared 06/10/2018. FINDINGS: There is no lung contusion, pneumothorax or hemothorax. Sternum and manubrium appeared intact. Visualized portions of the shoulders nonacute. No displaced or identifiable rib fracture deformity. Degenerative changes throughout the thoracic spine appeared stable. No suspicious pulmonary nodule. There are some zones of deborah-fissural atelectasis and/or scarring. There are some zones of deborah-fissural and dependent atelectasis. Some scattered benign calcified pulmonary parenchymal and lymph node granulomatous residua. No new or suspicious chest mass. The visualized upper abdomen appeared nonacute. No free fluid or free air. No chest wall hematoma. IMPRESSION: Stable chronic findings with no acute or posttraumatic sequelae identified. Dictated by: Dictated on workstation # [id number]
--- NOTE | 2018-09-14 06:54 | Diagnostic Imaging Report ---
PROCEDURE: CT head and CT cervical spine without contrast. TECHNIQUE: Multiple contiguous axial images were obtained through the brain and cervical spine without the use of intravenous contrast. Sagittal and coronal reformations through the cervical spine were then performed. Auto Exposure Controls were utilized during the CT exam to meet ALARA standards for radiation dose reduction. INDICATION: Fall with pain. No priors. Head: There is no intracranial hemorrhage. No acute extra-axial fluid collection. Mastoid air cells and middle ear cavities clear. The paranasal sinuses and orbits appeared nonacute. No focal or generalized cerebral edema. The basilar cisterns are patent. No mass or mass effect. No evidence for elevation of the intracranial pressures. CT cervical spine: Solid C4-C5 ACDF has been performed without evidence for pseudoarthrosis. C1-C2 posterior fusion performed without evidence for failure. The vertebral body alignments are normal. There is hypertrophic facet arthrosis and multilevel bridging syndesmophytes with no evidence for paravertebral hemorrhage. No identifiable fracture. Bony skull base appeared intact. IMPRESSION: CT head: No acute or posttraumatic sequelae. CT cervical spine: Postsurgical changes appeared intact. No fracture or traumatic malalignment identified. Dictated by: Dictated on workstation # [id number]
--- NOTE | 2018-09-14 07:07 | Diagnostic Imaging Report ---
INDICATION: Fall, left wrist pain. TECHNIQUE: 3 views of the left wrist. COMPARISON: None FINDINGS: There is diffuse osteopenia. No acute fracture is seen in the left wrist. There are moderate degenerative changes in the basal joints of the thumb. There is chronic degenerative change at the radiocarpal joint and ulnocarpal joint with old nonunited fracture of the ulnar styloid process and widening of the distal radioulnar joint. There are degenerative changes at the lunocapitate joint. There is moderate soft tissue edema about the left wrist. There is mild positive ulnar variance. IMPRESSION: 1. Mild soft tissue edema about the left wrist with no acute fracture seen. 2. Chronic findings in the left wrist as described above. Dictated by: Dictated on workstation # [id number]
--- NOTE | 2018-09-14 07:35 | Diagnostic Imaging Report ---
INDICATION: Right hip pain after fall. TECHNIQUE: Frontal view of the pelvis. Frontal and lateral views of the right hip. COMPARISON: None. FINDINGS: There are mild degenerative changes in the bilateral hip joints. There is diffuse osteopenia. Mild linear lucency is seen in the right greater trochanter which may extend down to the lesser trochanter. There is soft tissue edema about the right hip. The femoral heads are well-seated in the acetabula bilaterally. There are degenerative changes in the bilateral sacroiliac joints. There is also degenerative change in the lower lumbar spine. IMPRESSION: 1. Linear lucency in the proximal right femur concerning for a nondisplaced fracture. Called/Faxed to [facility] at 7:34 a.m. by luca. Dictated by: Dictated on workstation # [id number]
[2018-09-14 08:55] VITALS: BP 108/55
[2018-09-14] MEDS ORDERED: LEVA15HF5 INH (11:06)
[2018-09-14] MEDS ORDERED: CYCL5TAB PO (11:06)
[2018-09-14] MEDS ORDERED: CEFD300C3 PO (11:06)
[2018-09-14] MEDS ORDERED: ATOR40TA70 PO (11:06)
[2018-09-14] MEDS ORDERED: TAPE50TA2 PO (11:06)
[2018-09-14] MEDS ORDERED: FURO20TA4 PO (11:06)
[2018-09-14] MEDS ORDERED: METO-333 PO (11:06)
[2018-09-14] MEDS ORDERED: ONDA4TAB11 PO (11:06)
[2018-09-14] MEDS ORDERED: LORA10TA76 PO (11:06)
--- NOTE | 2018-09-14 11:22 | NUR ---
UPDATED MED REC WITH MAR FROM [facility].
[2018-09-14 12:11] VITALS: BP 125/64
[2018-09-14] MEDS ORDERED: ONDANSETRON 4 MG (ZOFRAN) ORAL DISSOLVE TAB PO PRN (12:15)
--- NOTE | 2018-09-14 12:55 | History & Physical-Hospitalist ---
History of Present Illness HPI/Chief Complaint The patient is a 78-year-old white female who lives at [facility]. She was admitted from the emergency room last evening after she presented with a history of falling and hip pain. Plain films were reported during that visit as being negative. This morning our radiology service reports a nondisplaced fracture of the right femur. On reviewing this it appears to be a minimally displaced fracture at the superior surface of the greater trochanter on the right. She reports that this occurred when she got up to go to the bathroom last evening. She uses a walker and was using it but fell. She got back up and attempted to go to the restroom again only to fall again. After the second fall she reported pain in the right hip. The findings were discussed with Dr. Roman from [address] [place] [address] orthopedics. He requested that I order a CT scan and that he would hope to be able to repair this later today. Her past medical history includes paroxysmal atrial fibrillation. She is currently on Eliquis. She states that she has a past history of congestive heart failure and takes Bumex for this. She has had an echocardiogram performed by a doctor in [place] but her study is not available to me. Date Seen 09/14/18 Time Seen by a Provider: 11:20 Attending Physician Jocelyne Robles MD PCP Isiah Sharpe MD Referring Physician Date of Admission Sep 14, 2018 at 01:20 Home Medications & Allergies Home Medications Reviewed patient Home Medication Reconciliation performed by pharmacy medication reconciliations noc technician and/or nursing. Patients Allergies have been reviewed. Allergies Allergies Coded Allergies lisinopril (Verified Allergy, Unknown, 09/13/18) metolazone (Verified Allergy, Unknown, 09/13/18) oxycodone (Verified Allergy, Unknown, 09/13/18) tramadol (Verified Allergy, Unknown, 09/13/18) valdecoxib (Verified Allergy, Unknown, 09/13/18) codeine (Verified Adverse Reaction, Unknown, 09/13/18) fentanyl (Verified Adverse Reaction, Unknown, 09/13/18) hydrocodone (Verified Adverse Reaction, Unknown, 09/13/18) morphine (Verified Adverse Reaction, Unknown, 09/13/18) Past Clojnvc-Mwrdhl-Vuhbcb Hx Past Med/Social Hx: Reviewed Nursing Past Med/Soc Hx, Reviewed and Corrections made Patient Social History Alcohol Use: Denies Use Recreational Drug Use: No Physical Abuse Screen: No Sexual Abuse: No Recent Foreign Travel: No Contact w/other who traveled: No Recent Hopitalizations: No Recent Infectious Disease Expo: No Immunizations Up To Date Tetanus Booster (TDap): Unknown Date of Pneumonia Vaccine: Mar 24, 2018 Date of Influenza Vaccine: Apr 03, 2018 Seasonal Allergies Seasonal Allergies: No Past Medical History Surgeries: Bladder Surgery, Cardiac, Eye Surgery, Joint Replacement, Orthopedic, Rectal Currently Using CPAP: No Currently Using BIPAP: No Cardiac: Atrial Fibrillation, Chronic Edema/Swelling, Heart Murmur, High Cholesterol, Hypertension Neurological: TIA : No Menopausal Genitourinary: Bladder Infection, Renal Failure Musculoskeletal: Arthritis HEENT: Cataract, Macular Degeneration, Double Vision Psychosocial: Anxiety, Depression History of Blood Disorders: No Family History Reviewed Nursing Family Hx No Pertinent Family Hx Review of Systems Constitutional: see HPI EENTM: no symptoms reported Respiratory: short of breath Cardiovascular: see HPI Gastrointestinal: no symptoms reported Genitourinary: no symptoms reported Musculoskeletal: no symptoms reported Skin: no symptoms reported Psychiatric/Neurological: No Symptoms Reported Physical Exam Physical Exam Vital Signs Vital Signs - First Documented 09/13/18 09/13/18 22:05 22:30 Temp 100.4 Pulse 82 Resp 14 B/P (MAP) 119/59 (79) Pulse Ox 94 O2 Delivery Room Air O2 Flow Rate 2.00 Capillary Refill : Less Than 3 Seconds Height, Weight, BMI Height: 5'5.00" Weight: 263lbs. 1.2oz. 119.305659br; 43.8 BMI Method:Stated General Appearance: Mild Distress Eyes: Bilateral Eye Normal Inspection HEENT: PERRL/EOMI Neck: Normal Inspection Respiratory: Chest Non Tender, Lungs Clear, Normal Breath Sounds, No Accessory Muscle Use, No Respiratory Distress Cardiovascular: Regular Rate, Rhythm, No Edema, No Gallop, No JVD, No Murmur, N ormal Peripheral Pulses Gastrointestinal: Normal Bowel Sounds, No Organomegaly, No Pulsatile Mass, Non Tender, Soft Back: Normal Inspection Extremity: Normal Capillary Refill, Normal Inspection, Normal Range of Motion, Non Tender, No Calf Tenderness, No Pedal Edema Neurologic/Psychiatric: Alert, Oriented x3, No Motor/Sensory Deficits, Normal Mood/Affect Skin: Normal Color, Warm/Dry Lymphatic: No Adenopathy Results Results/Procedures Labs Laboratory Tests 7/7/19 22:16 09/14/18 04:51 Patient resulted labs reviewed. Assessment/Plan Admission Diagnosis Nondisplaced fracture right greater trochanter. 2.history of atrial fibrillation post-cardioversion. 3.history of congestive heart failure. Admission Status: Inpatient Order (span 2 midnights) Reason for Inpatient Admission: Right hip fracture Clinical Quality Measures DVT/VTE Risk/Contraindication: Risk Factor Score Per Nursin RFS Level Per Nursing on Admit: 2=Moderate AXEL TOURE MD Sep 14, 2018 12:55
[2018-09-14] MEDS ORDERED: LACTATED RINGERS 1,000 ML IV PRN (13:32)
[2018-09-14] MEDS ORDERED: ceFAZolin INJECTION 1,000 MG in WATER (STERILE) FOR INJECTION 10 ML IV NR (14:00)
--- NOTE | 2018-09-14 14:52 | NUR ---
CM/SS, initial review. Patient has established residency at [facility]. Surgery scheduled, will followup with patient/family and [facility] staff regarding overall discharge planning.
--- NOTE | 2018-09-14 16:21 | Diagnostic Imaging Report ---
PROCEDURE: CT right hip without contrast. TECHNIQUE: An axially acquired CT was obtained through the right hip without intravenous contrast. Coronal and sagittal reformations were also performed. DATE: September 14, 2018. INDICATION: 78-year-old female, history of nondisplaced trochanteric fracture of the right femur. COMPARISON: Radiographs of September 13, 2018. FINDINGS: There is a very mildly displaced mildly comminuted fracture involving the right greater trochanter. The very mild displacement of the fracture is perhaps best illustrated on coronal image 52 and adjacent sequential images. There is a transverse fracture component well illustrated on coronal image 54 with a more vertically oriented component extending more inferiorly, perhaps best illustrated on axial image 62 and adjacent sequential images. There is no fracture involvement of the lesser trochanter. The femoral head is normally positioned relative to the acetabulum. There is severe joint space loss of the right hip with areas of njoc-ve-zqsk articulation and subchondral cystic change. There is mild osteophyte formation. There is no identified sizable fluid collection. There is no identified free pelvic fluid. IMPRESSION: 1. Mildly comminuted very mildly displaced right greater trochanteric femur fracture. 2. Severe osteoarthritis of the right hip. Dictated by: Dictated on workstation # [id number]
[2018-09-14 16:59] VITALS: BP 117/62
--- NOTE | 2018-09-14 17:54 | Consultation ---
History of Present Illness History of Present Illness Patient Consulted On(aniyah/time) 09/14/18 17:51 Date Seen by Provider: Sep 14, 2018 Time Seen by Provider: 17:51 Reason for Visit: R hip pain History of Present Illness Cheryl is a 78 yo WF that fell and has hip pain. A fracture was noted in the proximal femur and ortho was consulted. CT scan demonstrated minimally displaced greater trochanter fracture. Allergies and Home Medications Allergies Coded Allergies: lisinopril (Verified Allergy, Unknown, 09/13/18) metolazone (Verified Allergy, Unknown, 09/13/18) oxycodone (Verified Allergy, Unknown, 09/13/18) tramadol (Verified Allergy, Unknown, 09/13/18) valdecoxib (Verified Allergy, Unknown, 09/13/18) codeine (Verified Adverse Reaction, Unknown, 09/13/18) fentanyl (Verified Adverse Reaction, Unknown, 09/13/18) hydrocodone (Verified Adverse Reaction, Unknown, 09/13/18) morphine (Verified Adverse Reaction, Unknown, 09/13/18) Home Medications Acetaminophen 500 Mg Tablet, 500-1,000 MG PO Q6H PRN for PAIN-MILD, (Reported) TAKES 1-2 (500MG) TABLETS Apixaban 5 Mg Tablet, 5 MG PO BID, (Reported) Atorvastatin Calcium 40 Mg Tablet, 40 MG PO HS, (Reported) Benzocaine 9 Gm Gel..gram., MM UD PRN for GUM PAIN, (Reported) Benzonatate 100 Mg Capsule, 100 MG PO TID PRN for COUGH, (Reported) Budesonide/Formoterol Fumarate 10.2 Gm Hfa.aer.ad, 2 PUFF INH BID, (Reported) Bumetanide 2 Mg Tablet, 2 MG PO BID, (Reported) Calcium Carbonate 300 Mg Tab.chew, 1-2 TAB.CHEW PO UD PRN for INDIGESTION, (Reported) Cefdinir 300 Mg Capsule, 300 MG PO BID, (Reported) Cyclobenzaprine HCl 5 Mg Tablet, 5 MG PO Q4H PRN for MUSCLE SPASMS, (Reported) Diltiazem HCl 60 Mg Tablet, 60 MG PO DAILY, (Reported) Duloxetine HCl 60 Mg Capsule.dr, 60 MG PO DAILY, (Reported) Estrogens Conjugated 30 Gm Cr, 0.3 MG VG MoWeFr, (Reported) Furosemide 20 Mg Tablet, 20 MG PO DAILY, (Reported) Guaifenesin 1,200 Mg Tab.er.12h, 1,200 MG PO BID, (Reported) Isosorbide Mononitrate 30 Mg Tab.er.24h, 30 MG PO DAILY, (Reported) Levalbuterol Tartrate 15 Gm Hfa.aer.ad, 2 PUFF INH Q4H PRN for SHORTNESS OF BREATH, (Reported) Loratadine 10 Mg Tablet, 10 MG PO DAILY PRN for ITCHING, (Reported) Magnesium Oxide 400 Mg Tablet, 400 MG PO DAILY, (Reported) Menthol 5.8 Mg Lozenge, 1 LOZENGE MM UD PRN for COUGH, (Reported) Metoprolol Tartrate 25 Mg Tablet, 25 MG PO BID, (Reported) Ondansetron 4 Mg Tab.rapdis, 4 MG PO Q4H PRN for NAUSEA/VOMITING-1ST LINE, (Reported) Ondansetron HCl 4 Mg Tablet, 4 MG PO Q6H PRN for NAUSEA/VOMITING-1ST LINE, (Reported) Potassium Chloride 20 Meq Tab.er.prt, 20 MEQ PO DAILY, (Reported) Ropinirole HCl 1 Mg Tablet, 1 MG PO HS, (Reported) Sertraline HCl 50 Mg Tablet, 50 MG PO DAILY, (Reported) Spironolactone 25 Mg Tablet, 25 MG PO DAILY, (Reported) Tapentadol HCl 50 Mg Tablet, 50 MG PO Q6H PRN for PAIN UNRESOLVED BY TYLENOL, (Reported) [Dry Mouth Lozenge] , 1 LOZENGE MM UD PRN for DRY MOUTH, (Reported) [Magic Mouthwash] , 5-10 ML PO EVERY 6-8 HOURS PRN for SORE MOUTH, (Reported) SWISH AND SPIT Patient Home Medication List Home Medication List Reviewed: Yes Past Tsetmhm-Fjmeap-Lydacy Hx Past Med/Social Hx: Reviewed Nursing Past Med/Soc Hx, Reviewed and Corrections made Patient Social History Alcohol Use: Denies Use Recreational Drug Use: No Recent Foreign Travel: No Contact w/Someone Who Travel: No Recent Infectious Disease Expo: No Recent Hopitalizations: No Immunizations Up To Date Tetanus Booster (TDap): Unknown Date of Pneumonia Vaccine: Mar 24, 2018 Date of Influenza Vaccine: Apr 03, 2018 Seasonal Allergies Seasonal Allergies: No Past Medical History Surgeries: Yes Bladder Surgery, Cardiac, Eye Surgery, Joint Replacement, Orthopedic, Rectal Respiratory: Yes COPD Currently Using CPAP: No Currently Using BIPAP: No Cardiac: Yes Atrial Fibrillation, Chronic Edema/Swelling, Heart Murmur, High Cholesterol, Hypertension Neurological: Yes TIA : No COUNTER CLERK History: Menopausal Genitourinary: Yes (BLADDER REPAIR) Bladder Infection, Renal Failure Gastrointestinal: Yes (RECTAL REPAIR) Musculoskeletal: Yes (neck fusion (twice); tendon repair monik ankles; bilat knee replacement) Arthritis Endocrine: No HEENT: Yes (double vision from TIA pt stated) Cataract, Macular Degeneration, Double Vision Cancer: No Psychosocial: Yes Anxiety, Depression Integumentary: No Blood Disorders: No Family Medical History Reviewed Nursing Family Hx No Pertinent Family Hx Review of Systems-General Constitutional: no symptoms reported Physical Exam-General Problems Physical Exam Vital Signs Vital Signs - First Documented 09/13/18 09/13/18 22:05 22:30 Temp 100.4 Pulse 82 Resp 14 B/P (MAP) 119/59 (79) Pulse Ox 94 O2 Delivery Room Air O2 Flow Rate 2.00 Capillary Refill : Less Than 3 SecondsLess Than 3 Seconds General Appearance: no apparent distress Extremities: other (no pain with log roll RLE, NVSI, skin intact, 2/4 DP, PT ) Assessment/Plan Assessment/Plan Admission Diagnosis/Plan ASSESSMENT: stable right greater trochanteric fracture PLAN: partial weight bear on walker nonoperative treatment: fracture will heal without surgery may f/u with dr benson in 2 weeks Admission Status: Inpatient Order (span 2 midnights) Clinical Quality Measures DVT/VTE Risk/Contraindication: Risk Factor Score Per Nursin RFS Level Per Nursing on Admit: 2=Moderate SELENA BENSON DO Sep 14, 2018 17:54
--- NOTE | 2018-09-14 19:12 | Consultation-Cardiology ---
HPI-Cardiology Cardiology Consultation: Date of Consultation 09/14/18 Time Seen by a Provider: 18:40 Date of Admission Attending Physician Jocelyne Robles MD Admitting Physician Isiah Sharpe MD Consulting Physician PAULINO LEON MD, MA, FACP, FACC, FSCAI, CCDS Physician requesting consult: Dr Casanova HPI: Chief Complaint: REASON FOR CONSULTATION: H/o PAF and CHF HPI 78 yo woman, resident of a local correction, who lost her balance on her walker, fell, and sustained a R hip fracture She has a h/o PAF. Her family states Dr Miranda cardioverted her about a year ago. She herself does not have good recollection of that. States is on Eliquis, but is not sure Denies cp or palp or syncope Has a h/o CHF, but pt and fam do not know any details Does not report any coronary interventions Review of Systems-Cardiology Review of Systems Constitutional: malaise, tiredness; No weight loss, No weight gain Eyes: No vision change Ears/Nose/Throat: No ear discharge, No nasal drainage, No recent hearing loss Respiratory: As described under HPI Cardiovascular: As described under HPI Gastrointestinal: No diarrhea, No nausea, No vomiting Genitourinary: No dysuria, No hematuria, No urine frequency changes Musculoskeletal: back pain (chronic), joint pain (chronic) Skin: No rash, No ulcerations Psychiatric/Neurological: No seizure, No focal weakness, No syncope Hematologic: No bleeding abnormalities All Other Systems Reviewed Negative Unless Noted: Yes (Negative excepted noted.) BHR-Mbinjl-Rnioam Hx Patient Social History Alcohol Use: Denies Use Recreational Drug Use: No Recent Foreign Travel: No Recent Infectious Disease Expo: No Physical Abuse Screen: No Sexual Abuse: No Immunizations Up To Date Tetanus Booster (TDap): Unknown Date of Pneumonia Vaccine: Mar 24, 2018 Date of Influenza Vaccine: Apr 03, 2018 Past Medical History PMH As described under Assessment. Family Medical History Family Medical History: No fam h/o early CAD or SCD Allergies and Home Medications Allergies Coded Allergies: lisinopril (Verified Allergy, Unknown, 09/13/18) metolazone (Verified Allergy, Unknown, 09/13/18) oxycodone (Verified Allergy, Unknown, 09/13/18) tramadol (Verified Allergy, Unknown, 09/13/18) valdecoxib (Verified Allergy, Unknown, 09/13/18) codeine (Verified Adverse Reaction, Unknown, 09/13/18) fentanyl (Verified Adverse Reaction, Unknown, 09/13/18) hydrocodone (Verified Adverse Reaction, Unknown, 09/13/18) morphine (Verified Adverse Reaction, Unknown, 09/13/18) Home Medications Acetaminophen 500 Mg Tablet, 500-1,000 MG PO Q6H PRN for PAIN-MILD, (Reported) TAKES 1-2 (500MG) TABLETS Apixaban 5 Mg Tablet, 5 MG PO BID, (Reported) Atorvastatin Calcium 40 Mg Tablet, 40 MG PO HS, (Reported) Benzocaine 9 Gm Gel..gram., MM UD PRN for GUM PAIN, (Reported) Benzonatate 100 Mg Capsule, 100 MG PO TID PRN for COUGH, (Reported) Budesonide/Formoterol Fumarate 10.2 Gm Hfa.aer.ad, 2 PUFF INH BID, (Reported) Bumetanide 2 Mg Tablet, 2 MG PO BID, (Reported) Calcium Carbonate 300 Mg Tab.chew, 1-2 TAB.CHEW PO UD PRN for INDIGESTION, (Reported) Cefdinir 300 Mg Capsule, 300 MG PO BID, (Reported) Cyclobenzaprine HCl 5 Mg Tablet, 5 MG PO Q4H PRN for MUSCLE SPASMS, (Reported) Diltiazem HCl 60 Mg Tablet, 60 MG PO DAILY, (Reported) Duloxetine HCl 60 Mg Capsule.dr, 60 MG PO DAILY, (Reported) Estrogens Conjugated 30 Gm Cr, 0.3 MG VG MoWeFr, (Reported) Furosemide 20 Mg Tablet, 20 MG PO DAILY, (Reported) Guaifenesin 1,200 Mg Tab.er.12h, 1,200 MG PO BID, (Reported) Isosorbide Mononitrate 30 Mg Tab.er.24h, 30 MG PO DAILY, (Reported) Levalbuterol Tartrate 15 Gm Hfa.aer.ad, 2 PUFF INH Q4H PRN for SHORTNESS OF BREATH, (Reported) Loratadine 10 Mg Tablet, 10 MG PO DAILY PRN for ITCHING, (Reported) Magnesium Oxide 400 Mg Tablet, 400 MG PO DAILY, (Reported) Menthol 5.8 Mg Lozenge, 1 LOZENGE MM UD PRN for COUGH, (Reported) Metoprolol Tartrate 25 Mg Tablet, 25 MG PO BID, (Reported) Ondansetron 4 Mg Tab.rapdis, 4 MG PO Q4H PRN for NAUSEA/VOMITING-1ST LINE, (Reported) Ondansetron HCl 4 Mg Tablet, 4 MG PO Q6H PRN for NAUSEA/VOMITING-1ST LINE, (Reported) Potassium Chloride 20 Meq Tab.er.prt, 20 MEQ PO DAILY, (Reported) Ropinirole HCl 1 Mg Tablet, 1 MG PO HS, (Reported) Sertraline HCl 50 Mg Tablet, 50 MG PO DAILY, (Reported) Spironolactone 25 Mg Tablet, 25 MG PO DAILY, (Reported) Tapentadol HCl 50 Mg Tablet, 50 MG PO Q6H PRN for PAIN UNRESOLVED BY TYLENOL, (Reported) [Dry Mouth Lozenge] , 1 LOZENGE MM UD PRN for DRY MOUTH, (Reported) [Magic Mouthwash] , 5-10 ML PO EVERY 6-8 HOURS PRN for SORE MOUTH, (Reported) SWISH AND SPIT Patient Home Medication List Home Medication List Reviewed: Yes Physical Exam-Cardiology Physical Exam Vital Signs/I&O 09/14/18 09/14/18 09/14/18 09/14/18 08:00 08:55 12:11 16:59 Temp 97.1 97.8 97.0 Pulse 64 69 83 Resp 21 22 22 B/P (MAP) 108/55 (72) 125/64 (84) 117/62 (80) Pulse Ox 3 96 98 96 O2 Delivery Nasal Cannula Nasal Cannula Nasal Cannula Nasal Cannula O2 Flow Rate 2.00 2.00 2.00 Capillary Refill : Less Than 3 SecondsLess Than 3 Seconds Constitutional: other (poor memory, well-devolped, obese) HEENT: EOMI, hearing is well preserved; No xanthelasmas are seen Neck: carotid pulses are 2 + bilaterally, with good upstrokes Respiratory: No accessory muscle use; other (fair to good bilat air entry, diminished at the bases) Cardiovascular: regular rate-rhythm, S1 and S2, systolic murmur (soft ASHELY at card bse) Gastrointestinal: No tender; soft; No guarding, No rebound; audible bowel sounds Extremities: other (bilateral, pitting and non-pitting leg swelling); No clubbing, No cyanosis Neurologic/Psychiatric: other (has poor recent; seem oriented to person and place; seems to be able to move all limbs; we did not attempt any motion at the affected joint) Skin: No rash on exposed areas, No ulcerations on exposed areas Data Review Labs Laboratory Tests 09/13/18 22:16: White Blood Count 6.4, Red Blood Count 4.31L, Hemoglobin 12.0, Hematocrit 35, Mean Corpuscular Volume 82, Mean Corpuscular Hemoglobin 28, Mean Corpuscular Hemoglobin Concent 34, Red Cell Distribution Width 14.2, Platelet Count 117L, Mean Platelet Volume 12.3H, Neutrophils (%) (Auto) 53, Lymphocytes (%) (Auto) 26, Monocytes (%) (Auto) 20H, Eosinophils (%) (Auto) 1, Basophils (%) (Auto) 0, Neutrophils # (Auto) 3.4, Lymphocytes # (Auto) 1.6, Monocytes # (Auto) 1.3H, Eosinophils # (Auto) 0.0, Basophils # (Auto) 0.0, Neutrophils % (Manual) 83, Lymphocytes % (Manual) 21, Monocytes % (Manual) 25, Band Neutrophils 1, Sodium Level 128L, Potassium Level 4.1, Chloride Level 92L, Carbon Dioxide Level 27, Anion Gap 9, Blood Urea Nitrogen 21H, Creatinine 1.30, Estimat Glomerular Filtration Rate 40, BUN/Creatinine Ratio 16, Glucose Level 107H, Lactic Acid Level 1.49, Calcium Level 9.0, Corrected Calcium 9.8, Magnesium Level 1.5L, Total Bilirubin 0.8, Aspartate Amino Transf (AST/SGOT) 34, Alanine Aminotransferase (ALT/SGPT) 11, Alkaline Phosphatase 111, Troponin I < 0.028, B- Type Natriuretic Peptide 109.1H, Total Protein 6.7, Albumin 3.0L, TSH [place] Testing 1.68 09/14/18 00:44: Urine Color YELLOW, Urine Clarity CLEAR, Urine pH 6.5, Urine Specific [place] 1.005L, Urine Protein NEGATIVE, Urine Glucose (UA) NEGATIVE, Urine Ketones NEGATIVE, Urine Nitrite NEGATIVE, Urine Bilirubin NEGATIVE, Urine Urobilinogen NORMAL, Urine Leukocyte Esterase 1+H, Urine RBC (Auto) NEGATIVE, Urine RBC NONE, Urine WBC RARE, Urine Squamous Epithelial Cells RARE, Urine Crystals NONE, Urine Bacteria TRACE, Urine Casts NONE, Urine Mucus NEGATIVE, Urine Culture Indicated NO 09/14/18 04:51: White Blood Count 7.0, Red Blood Count 3.96L, Hemoglobin 11.0L, Hematocrit 33L, Mean Corpuscular Volume 83, Mean Corpuscular Hemoglobin 28, Mean Corpuscular Hemoglobin Concent 34, Red Cell Distribution Width 14.3, Platelet Count 100L, Mean Platelet Volume 12.7H, Neutrophils (%) (Auto) 55, Lymphocytes (%) (Auto) 25, Monocytes (%) (Auto) 20H, Eosinophils (%) (Auto) 0, Basophils (%) (Auto) 0, Neutrophils # (Auto) 3.8, Lymphocytes # (Auto) 1.7, Monocytes # (Auto) 1.4H, Eosinophils # (Auto) 0.0, Basophils # (Auto) 0.0, Sodium Level 130L, Potassium Level 4.2, Chloride Level 96L, Carbon Dioxide Level 26, Anion Gap 8, Blood Urea Nitrogen 20H, Creatinine 1.16, Estimat Glomerular Filtration Rate 45, BUN/Creatinine Ratio 17, Glucose Level 119H, Calcium Level 8.4L, Corrected Calcium 9.4, Magnesium Level 1.7L, Total Bilirubin 0.7, Aspartate Amino Transf (AST/SGOT) 30, Alanine Aminotransferase (ALT/SGPT) 11, Alkaline Phosphatase 93, Total Protein 6.1L, Albumin 2.7L Microbiology 09/13/18 Blood Culture - Preliminary, Resulted No growth Laboratory Tests 09/13/18 22:16 09/14/18 04:51 A/P-Cardiology Assessment/Admission Diagnosis Non-syncopal fall leading to non-displaced R greater trochanteric fracture, managed conservatively PAF Hypertension Obesity Poor memory or dementia RBBB on ECG H/o CHF of which pt or family know no details Hyponatremia likely related to chronic diuretic therapy Discussion and Recomendations * Change diltiazem to long acting * Apixaban for stroke prophylaxis * Replenish lytes * Monitor labs * Echo * I spoke with her and her family and answered CV-related questions Clinical Quality Measures DVT/VTE Risk/Contraindication: Risk Factor Score Per Nursin RFS Level Per Nursing on Admit: 2=Moderate PAULINO LEON MD [facility] Sep 14, 2018 19:12
[2018-09-14] MEDS ORDERED: MAGNESIUM 1 GM/100 ML IVPB 100 ML IV ONE ×2 (19:30)
[2018-09-14] MEDS: meTOprolol TARTRATE 25 MG (LOPRESSOR) TABLET PO SCH (20:36)
[2018-09-14] MEDS: APIXABAN 5 MG (ELIQUIS) TABLET PO SCH (20:36)
[2018-09-14] MEDS: ESTROGENS CONJ. CREAM 30 GM (PREMARIN) TUBE VG SCH (20:39)
[2018-09-14] MEDS: NYSTATIN OINTMENT 30 GM TUBE TOP SCH (20:43)
[2018-09-14 20:47] VITALS: BP 136/59
--- NOTE | 2018-09-14 21:00 | NUR ---
PATIENT HAS ELEVATED TEMPERATURE OF 101.4, SOB AT REST, RESPIRATORY RATE 32, O2 SAT 94%, HR 101. DR. TOURE NOTIFIED AT 2100. ORDERED ONE TIME IV LASIX 20 MG.
[2018-09-14] MEDS ORDERED: FUROSEMIDE 40 MG/4 ML INJ (LASIX) IVP ONE (22:00)
[2018-09-15 00:10] VITALS: BP 107/65
[2018-09-15] MEDS: HYDROcodone/APAP 5 MG/325 MG (LORTAB) TAB PO PRN ×5 (01:48→23:19)
[2018-09-15 04:28] VITALS: BP 108/69
[2018-09-15] MEDS: cefTRIAXone 1,000 MG/SWFI 10 ML IV PUSH IV SCH ×2 (04:51)
[2018-09-15 06:16] LABS: BASOPHILS % (AUTO) 0 % (0-10); EOSINOPHILS # (AUTO) 0.1 10^3/uL (0.0-0.3); EOSINOPHILS % (AUTO) 1 % (0-10); HEMATOCRIT 32 % (35-52); HEMOGLOBIN 11.1 G/DL (11.5-16.0); LYMPHOCYTES # (AUTO) 2.4 X 10^3 (1.0-4.0); LYMPHOCYTES % (AUTO) 32 % (12-44); MEAN CORPUSCULAR HEMOGLOBIN 28 PG (25-34); MEAN CORPUSCULAR HGB CONC 35 G/DL (32-36); MEAN CORPUSCULAR VOLUME 81 FL (80-99); MONOCYTES # (AUTO) 1.5 X 10^3 (0.0-1.0); MONOCYTES % (AUTO) 20 % (0-12); NEUTROPHILS # (AUTO) 3.4 X 10^3 (1.8-7.8); NEUTROPHILS % (AUTO) 46 % (42-75); PLATELET COUNT 62 10^3/uL (130-400); RED CELL DISTRIBUTION WIDTH 14.1 % (10.0-14.5); WHITE BLOOD COUNT 7.4 10^3/uL (4.3-11.0)
[2018-09-15] MEDS: ACETAMINOPHEN 325 MG TABLET PO SCH ×3 (06:35→18:02)
[2018-09-15 06:36] LABS: CALCIUM 8.2 MG/DL (8.5-10.1); CREATININE SERUM 1.16 MG/DL (0.60-1.30); MAGNESIUM 2.1 MG/DL (1.8-2.4); POTASSIUM 4.3 MMOL/L (3.6-5.0)
[2018-09-15 07:25] VITALS: BP 111/61
[2018-09-15] MEDS: SERTRALINE 50 MG (ZOLOFT) TABLET PO SCH (08:44)
[2018-09-15] MEDS: SPIRONOLACTONE 25 MG (ALDACTONE) TAB PO SCH (08:44)
[2018-09-15] MEDS: DILTIAZEM 120 MG (CARDIZEM CD) CAP PO SCH (08:44)
[2018-09-15] MEDS: KCL 20 MEQ TAB (K-DUR) PO SCH (08:44)
[2018-09-15] MEDS: ISOSORBIDE MONONITRATE 30 MG (IMDUR) TAB PO SCH (08:44)
[2018-09-15] MEDS: meTOprolol TARTRATE 25 MG (LOPRESSOR) TABLET PO SCH ×2 (08:44→20:45)
[2018-09-15] MEDS: APIXABAN 5 MG (ELIQUIS) TABLET PO SCH ×2 (08:44→20:45)
[2018-09-15] MEDS: NYSTATIN OINTMENT 30 GM TUBE TOP SCH ×2 (08:45→20:45)
[2018-09-15] MEDS ORDERED: DILTIAZEM 60 MG (CARDIZEM) TAB PO SCH (09:00)
[2018-09-15] MEDS ORDERED: FUROSEMIDE 20 MG (LASIX) TAB PO SCH (09:00)
--- NOTE | 2018-09-15 11:32 | Progress Note-Hospitalist ---
Progress Note Progress Notes/Assess & Plan Date Seen 09/15/18 Time Seen by Provider: 11:30 Assessment & Plan The patient was seen yesterday afternoon by Dr. Roman of ortho 4 states. The fracture of the greater trochanter will not require operative repair. He states that abduction should be limited and she should walk with a walker. She is already been using a walker and was using one when she fell. I will ask physical therapy for their input and we will hope to discharge her later today. Physical exam: She is alert and oriented. Lungs are clear to auscultation. CV is regular. Abdomen is obese. Extremities are symmetric. Impression: Minimally displaced fracture right greater trochanter. Plan: PT consult. Hope to discharge today Focused Exam Lactate Level 09/13/18 22:16: Lactic Acid Level 1.49 AXEL TOURE MD Sep 15, 2018 11:32 am
--- NOTE | 2018-09-15 11:35 | Progress Note-Cardiology ---
Cardiology SOAP Progress Note Subjective: Lying in bed. C/O back pain. No c/o CP or palpitations or dyspnea. Objective: I&O/Vital Signs 09/15/18 09/15/18 09/15/18 09/15/18 07:25 08:49 16:07 16:18 Temp 97.3 97.7 Pulse 69 80 Resp 20 22 B/P (MAP) 111/61 (78) 112/55 (74) Pulse Ox 94 3 94 96 O2 Delivery Room Air Nasal Cannula Nasal Cannula O2 Flow Rate 3.00 3.00 09/15/18 00:00 Intake Total 3790 ml Output Total 700 ml Balance 3090 ml Weight (Pounds): 263 Weight (Ounces): 1.2 Weight (Calculated Kilograms): 119.866669 Constitutional: other (poor memory, well-devolped, obese) Respiratory: No accessory muscle use; other (fair to good bilat air entry, diminished at the bases) Cardiovascular: regular rate-rhythm, S1 and S2, systolic murmur (soft ASHELY at card bse) Gastrointestional: No tender; soft; No guarding, No rebound; audible bowel sounds Extremities: other (bilateral, pitting and non-pitting leg swelling); No clubbing, No cyanosis Neurologic/Psychiatric: other (has poor recent; seem oriented to person and place; seems to be able to move all limbs; we did not attempt any motion at the affected joint) Skin: No rash on exposed areas, No ulcerations on exposed areas Results/Procedures: Labs Laboratory Tests 09/15/18 06:05: White Blood Count 7.4, Red Blood Count 3.97L, Hemoglobin 11.1L, Hematocrit 32L, Mean Corpuscular Volume 81, Mean Corpuscular Hemoglobin 28, Mean Corpuscular Hemoglobin Concent 35, Red Cell Distribution Width 14.1, Platelet Count 62L, Mean Platelet Volume , Neutrophils (%) (Auto) 46, Lymphocytes (%) (Auto) 32, Monocytes (%) (Auto) 20H, Eosinophils (%) (Auto) 1, Basophils (%) (Auto) 0, Neutrophils # (Auto) 3.4, Lymphocytes # (Auto) 2.4, Monocytes # (Auto) 1.5H, Eosinophils # (Auto) 0.1, Basophils # (Auto) 0.0, Sodium Level 129L, Potassium Level 4.3, Chloride Level 98, Carbon Dioxide Level 20L, Anion Gap 11, Blood Urea Nitrogen 19H, Creatinine 1.16, Estimat Glomerular Filtration Rate 45, BUN/Creatinine Ratio 16, Glucose Level 78, Calcium Level 8.2L, Magnesium Level 2.1 Microbiology 09/13/18 Blood Culture - Preliminary, Resulted No growth 09/14/18 MRSA Screen - Final, Complete A/P: Assessment: Non-syncopal fall leading to non-displaced R greater trochanteric fracture, managed conservatively Echocardiogram of June 08, [address] Oliveira showed LVEF 55-65%. Grade 1 diastolic dysfunction. LA dilated PAF Hypertension Obesity Poor memory or dementia RBBB on ECG H/o CHF of which pt or family know no details Hyponatremia likely related to chronic diuretic therapy Plan: * Continue long-acting Diltiazem * Continue Apixaban for stroke prophylaxis * Continue diuretics * Replenish lytes * Monitor labs * Echo pending * Out pt f/u with Dr[facility] (primary cash control specialist) Physician Assessment Physician Assessment Gen weakness, but better No cp or shortness of breath at rest Lungs: good bilat air entry Cor: reg Ext: no c/c/; mild leg edema A&R * As documented in our note above that I updated (italics) and as noted below * Continue current regimen. Ok to d/c from card standpoint. Outpt f/u with Dr Oliveira * Dr Collins covering Card Svce beginning tomorrow RAJESH URRUTIA [facility] Sep 15, 2018 11:35 PAULINO LEON MD FACP FAC CCDS Sep 15, 2018 18:58
[2018-09-15] MEDS ORDERED: FURO40TA4 PO (11:41)
[2018-09-15] MEDS ORDERED: DILT120C94 PO (11:41)
[2018-09-15] MEDS ORDERED: FUROSEMIDE 40 MG/4 ML INJ (LASIX) IVP ONE (11:45)
--- NOTE | 2018-09-15 13:42 | Physical Therapy Evaluation ---
PT Evaluation-General Medical Diagnosis Admission Date Sep 14, 2018 at 12:55 Medical Diagnosis: hyponatremia/UTI Onset Date: Sep 14, 2018 Therapy Diagnosis Therapy Diagnosis: weakness/debility Height/Weight Height (Feet): 5 Height (Inches): 5.00 Weight (Pounds): 263 Weight (Ounces): 1.2 Precautions Precautions/Isolations: Fall Prevention, Standard Precautions Weight Bear Status Right Lower Extremity: Right Weight Bearing/Tolerated Left Lower Extremity: Left Weight Bearing/Tolerated Referral Physician: Edilberto Reason for Referral: Evaluation/Treatment Medical History Pertinent Medical History: Atrial Fib, COPD, HTN, Renal Insufficiency Additional Medical History morbid obesity/bilateral TKR Current History EMS secondary to unwitnessed fall at [place] Reviewed History: Yes Social History Home: Assisted Living Prior/[facility] Prior Level of Function Therapy Code Descriptions/Definitions Functional [place] Measure: 0=Not Assessed/NA 4=Minimal Assistance 1=Total Assistance 5=Supervision or Setup 2=Maximal Assistance 6=Modified [place] 3=Moderate Assistance 7=Complete [place] Therapy Quality Codes: 6 Independent with activity with or without an assistive device 5 Patient requires set up or clean up by helper. Patient completes activity by themselves 4 Supervision or touching assist (CGA). [place] provide cues , steadying assist 3 The helper provides less than half the effort to complete the activity 2 The helper provides more than half the effort to complete the activity 1 Dependent. The helper does all the effort to complete an activity 7 Patient refused to complete or attempt activity 9 The patient did not perform the activity before the current illness or injury 88 Not attempted due to Medical conditions or safety concerns Functional Abilities and Goals: Independent: Patient completed the activities by him/herself, with or without an assistive device, with no assistance from a helper. Needed Some Help: Patient needed partial assistance from another person to complete activities. Dependent: A helper completed the activities for the patient. Unknown: Not Applicable: Bed Mobility: 4 Transfers (B,C,W/C) (FIM): 4 Gait: 1 Stairs: 0 Wheelchair Mobility: 4 Indoor Mobility (Ambulation): Needed Some Help Stairs: Not [place] Prior Devices Use: Manual wheelchair, Walker requires assistance for all ADL's and reports she uses w/c from room to dining room, etc PT Evaluation-Current Subjective Patient reluctantly agrees to attempt therapy. Patient reports 10/10 right hip pain Pain Numeric Pain Scale: 10-Worst Possible Pain Location: Right Location Body Site: Hip Pain Description: Acute Objective Patient Orientation: Person, Time, Situation Problem Solving: Poor Attachments: Oxygen, Sanchez Catheter, IV ROM/Strength ROM Lower Extremities limited due to pain and resistance bilaterally Strength Lower Extremities unable to formally test due to resistance by patient Integumentary/Posture Integumentary refer to nursing notes Bladder Incontinence: Sanchez Cath Posture trunk flexed posture Neuromuscular (Tone, Coordination, Reflexes) diminished coordination due to inactivity PLOF Sensory Vision: Functional Hearing: Functional Sensation Right Lower Extremit: Impaired Sensation Left Lower Extremity: Impaired Transfers Therapy Code Descriptions/Definitions Functional [place] Measure: 0=Not Assessed/NA 4=Minimal Assistance 1=Total Assistance 5=Supervision or Setup 2=Maximal Assistance 6=Modified [place] 3=Moderate Assistance 7=Complete [place] Transfers (B, C, W/C) (FIM): 1 Scootin Rollin Supine to/from Sit: 1 Sit to/from Stand: 1 patient is dependent with all movement of total body. Patient resists due to pain and will not/cannot assist with any mobility. Balance Sitting Static: Fair Sitting Dynamic: Fair Standing Static: Poor Assessment/Needs 78 y.o. female, will be seen by skilled therapy to address functional mobility, transfer training, etc. From a PT standpoint, patient will benefit from extended care facility to ensure healing and to gain strength to return to [place] at maximum LOF. Rehab Potential: Fair Post Rehab Potential-Barriers: compliance with therapy PT Short Term Goals Short Term Goals Time Frame: Sep 18, 2018 Transfers (B,C,W/C) (FIM): 2 PT Plan Problem List Problem List: Activity Tolerance, Functional Strength, Balance, Transfer, Bed Mobility Treatment/Plan Treatment Plan: Continue Plan of Care Treatment Plan: Bed Mobility, Education, Functional Activity Nick, Functional Strength, Gait, Safety, Therapeutic Exercise, Transfers Treatment Duration: Sep 18, 2018 Frequency: 4 times per week Estimated Hrs Per Day: .25 hour per day Patient and/or Family Agrees t: Yes Discharge Recommendations Therapy D/C Recommendations: Retirement Placement, Senior Care (TCU/NH) Time/GCodes Time In: 1235 Time Out: 1305 Total Billed Treatment Time: 30 Total Billed Treatment 1 visit EVModC 15 min FA 15 min RUPESH RAMIREZ PT Sep 15, 2018 13:42
[2018-09-15] MEDS: NS IV 1000 ML 1,000 ML IV SCH ×2 (15:00→23:32)
[2018-09-15 16:07] VITALS: BP 112/55
--- NOTE | 2018-09-15 18:17 | NUR ---
patient was on 3 L NC O2 sat of 96%; patients O2 was removed and rechecked after 45 mins on RA and O2 sat was 83%, so RT placed patient on O2 and it took 3 L to get O2 sat to 88% and to keep it up. Patient is requiring 3 L at all times.
[2018-09-16 00:27] VITALS: BP 111/53
[2018-09-16] MEDS: ACETAMINOPHEN 325 MG TABLET PO SCH ×4 (00:31→18:01)
[2018-09-16] MEDS: HYDROcodone/APAP 5 MG/325 MG (LORTAB) TAB PO PRN ×4 (03:26→18:07)
[2018-09-16] MEDS: cefTRIAXone 1,000 MG/SWFI 10 ML IV PUSH IV SCH ×2 (04:52)
[2018-09-16 06:34] LABS: HEMOGLOBIN 10.2 G/DL (11.5-16.0); MEAN PLATELET VOLUME 12.6 FL (7.4-10.4); RED CELL DISTRIBUTION WIDTH 14.6 % (10.0-14.5)
[2018-09-16 06:55] LABS: CREATININE SERUM 0.96 MG/DL (0.60-1.30); MAGNESIUM 1.7 MG/DL (1.8-2.4); POTASSIUM 4.1 MMOL/L (3.6-5.0)
[2018-09-16 08:00] VITALS: BP 118/74
[2018-09-16] MEDS: NYSTATIN OINTMENT 30 GM TUBE TOP SCH ×2 (08:32→21:51)
[2018-09-16] MEDS: FUROSEMIDE 40 MG (LASIX) TAB PO SCH (08:32)
[2018-09-16] MEDS: meTOprolol TARTRATE 25 MG (LOPRESSOR) TABLET PO SCH ×2 (08:32→21:32)
[2018-09-16] MEDS: SERTRALINE 50 MG (ZOLOFT) TABLET PO SCH (08:32)
[2018-09-16] MEDS: ISOSORBIDE MONONITRATE 30 MG (IMDUR) TAB PO SCH (08:33)
[2018-09-16] MEDS: KCL 20 MEQ TAB (K-DUR) PO SCH (08:33)
[2018-09-16] MEDS: SPIRONOLACTONE 25 MG (ALDACTONE) TAB PO SCH (08:33)
[2018-09-16] MEDS: APIXABAN 5 MG (ELIQUIS) TABLET PO SCH ×2 (08:33→21:32)
[2018-09-16] MEDS: DILTIAZEM 120 MG (CARDIZEM CD) CAP PO SCH (08:33)
--- NOTE | 2018-09-16 10:07 | Physical Therapy Daily Note ---
PT Daily Note-Current Subjective Patient in bed pre tx, agrees to PT, has 9/10 pain in hip, says she has already had pain meds. Appearance Patient in recliner post tx with nurse call, phone, tray, legs elevated. Mental Status Patient Orientation: Person, Place Attachments: Oxygen Transfers Therapy Code Descriptions/Definitions Functional [place] Measure: 0=Not Assessed/NA 4=Minimal Assistance 1=Total Assistance 5=Supervision or Setup 2=Maximal Assistance 6=Modified [place] 3=Moderate Assistance 7=Complete [place] Therapy Quality Codes: 6 Independent with activity with or without an assistive device 5 Patient requires set up or clean up by helper. Patient completes activity by themselves 4 Supervision or touching assist (CGA). [place] provide cues , steadying assist 3 The helper provides less than half the effort to complete the activity 2 The helper provides more than half the effort to complete the activity 1 Dependent. The helper does all the effort to complete an activity 7 Patient refused to complete or attempt activity 9 The patient did not perform the activity before the current illness or injury 88 Not attempted due to Medical conditions or safety concerns Transfers (B, C, W/C) (FIM): 1 Scootin Rollin Supine to/from Sit: 1 Sit to/from Stand: 2 Bed to/from Chair: 2 Stand pivot transfer to the recliner, max assist, patient does not seem to be able to be compliant with her weight bearing status. She is now PWB on the right leg. Weight Bearing Right Lower Extremity: Right Weight Bearing/Tolerated Left Lower Extremity: Left Partial Weight Bearing Exercises Seated Therapy Exercises: Ankle pumps, Long arc quads, Hip flexion Seated Reps: 15 Treatments bed mobility and transfers, LE exercise Assessment Current Status: Poor Progress mostly dependent for mobility PT Short Term Goals Short Term Goals Time Frame: Sep 18, 2018 Transfers (B,C,W/C) (FIM): 2 PT Plan Problem List Problem List: Activity Tolerance, Functional Strength, Safety, Balance, Gait, Transfer, Bed Mobility, ROM Treatment/Plan Treatment Plan: Continue Plan of Care Treatment Plan: Bed Mobility, Education, Functional Activity Nick, Functional Strength, Gait, Safety, Therapeutic Exercise, Transfers Treatment Duration: Sep 18, 2018 Frequency: 4 times per week Estimated Hrs Per Day: .25 hour per day Patient and/or Family Agrees t: Yes Safety Risks/Education Patient Education: Transfer Techniques, Reviewed Precautions, Correct Positioning, Safety Issues Teaching Recipient: Patient Teaching Methods: Demonstration, Discussion Response to Teaching: Reinforcement Needed Time/GCodes Time In: 929 Time Out: 943 Total Billed Treatment Time: 14 Total Billed Treatment 1 visit FA Farzana' LYUDMILA BAILEY PT Sep 16, 2018 10:07
--- NOTE | 2018-09-16 10:30 | NUR ---
CM/SS, respond to consult. PLAN: Community SNF placement prior to return to established residency at [facility]. SUMMARY: Visited with [facility] RN/Laina to confirm patient's prior level of functioning. Patient was ambulatory independently with her 4WW and wheelchair prior to fall with injury. Patient reportedly has fracture, no surgical intervention at this time (see physician notes). Talked to patient as well as her POA/Daughter/Deb Mulligan by phone. Patient deferred choice of SNF to Deb Boyd indicated her preferences to be [facility], then [facility]. Patient has Medicare replacement, [facility] Dual HMO. Referral completed with Yenifer at [facility], await confirmation of insurance benefits and ability to provide care plan. CARE Assessment pending.
--- NOTE | 2018-09-16 10:37 | Progress Note-Hospitalist ---
Subjective HPI/CC On Admission Date Seen by Provider: Sep 16, 2018 Time Seen by Provider: 10:00 The patient is a 78-year-old white female who lives at [facility]. She was admitted from the emergency room last evening after she presented with a history of falling and hip pain. Plain films were reported during that visit as being negative. This morning our radiology service reports a nondisplaced fracture of the right femur. On reviewing this it appears to be a minimally displaced fracture at the superior surface of the greater trochanter on the right. She reports that this occurred when she got up to go to the bathroom last evening. She uses a walker and was using it but fell. She got back up and attempted to go to the restroom again only to fall again. After the second fall she reported pain in the right hip. The findings were discussed with Dr. Roman from [address] [place] [address] orthopedics. He requested that I order a CT scan and that he would hope to be able to repair this later today. Her past medical history includes paroxysmal atrial fibrillation. She is currently on Eliquis. She states that she has a past history of congestive heart failure and takes Bumex for this. She has had an echocardiogram performed by a doctor in [place] but her study is not available to me. Subjective/Events-last exam Pt about the same. She did get up in a chair with PT. Pain is improved overall considering the conservative treatment for the intertrochanteric fracture Sodium level is 130 FDC placement to be pursued Overall very weak Pt appears to be very chronically debilitated and declined No BM yet but is taking medication to help Review of Systems General: Fatigue Focused Exam Lactate Level 09/13/18 22:16: Lactic Acid Level 1.49 Objective Exam Vital Signs Vital Signs Date Time Temp Pulse Resp B/P (MAP) Pulse Ox O2 Delivery O2 Flow Rate FiO2 09/16/18 18:43 91 Nasal Cannula 2.00 09/16/18 16:30 89.4 69 18 124/63 (83) Capillary Refill : Less Than 3 SecondsLess Than 3 Seconds General Appearance: No Apparent Distress, WD/WN, Chronically ill, Obese, Other (debilitated) HEENT: PERRL/EOMI, Normal ENT Inspection, Pharynx Normal Neck: Normal Inspection Respiratory: Chest Non Tender, Lungs Clear, Normal Breath Sounds, No Accessory Muscle Use, No Respiratory Distress Cardiovascular: Regular Rate, Rhythm, No Edema, No Gallop, No JVD, No Murmur, Normal Peripheral Pulses Gastrointestinal: Normal Bowel Sounds, No Organomegaly, No Pulsatile Mass, Non Tender, Soft Back: Normal Inspection Extremity: Normal Capillary Refill, Normal Inspection, Normal Range of Motion, Non Tender, No Calf Tenderness, No Pedal Edema Neurologic/Psychiatric: Alert, Oriented x3, No Motor/Sensory Deficits, cashier checker II- XII Norm as Tested, Depressed Affect, Disoriented (subtle confusion) Skin: Normal Color, Warm/Dry Lymphatic: No Adenopathy Results/Procedures Lab Laboratory Tests 09/16/18 05:30 Patient resulted labs reviewed. Assessment/Plan Assessment and Plan Assess & Plan/Chief Complaint Assessment: Fall Non-displaced right greater trochanteric fracture not a surgical candidate PAF Hypertension Obesity Dementia RBBB CHF on diuretics Hyponatremia Plan: PT/OT Pain control Needs NHP Diagnosis/Problems Diagnosis/Problems (1) Trochanteric fracture of right femur Status: Acute Qualifiers: Encounter type: subsequent encounter Fracture type: closed Fracture healing: with routine healing Qualified Codes: S72.101D - Unspecified trochanteric fracture of right femur, subsequent encounter for closed fracture with routine healing (2) Fall Status: Acute Qualifiers: Encounter type: subsequent encounter Qualified Codes: W19.XXXD - Unspecified fall, subsequent encounter (3) UTI (urinary tract infection) Status: Acute Qualifiers: Urinary tract infection type: acute cystitis Hematuria presence: without hematuria Qualified Codes: N30.00 - Acute cystitis without hematuria (4) Hyponatremia Status: Acute (5) Generalized weakness Status: Chronic (6) Acute coronary syndrome Status: Chronic (7) CHF (congestive heart failure) Status: Chronic Qualifiers: Heart failure type: diastolic Heart failure chronicity: chronic Qualified Codes: I50.32 - Chronic diastolic (congestive) heart failure (8) History of atrial fibrillation Status: Chronic Clinical Quality Measures DVT/VTE Risk/Contraindication: Risk Factor Score Per Nursin RFS Level Per Nursing on Admit: 2=Moderate DORY LIN DO Sep 16, 2018 10:37
--- NOTE | 2018-09-16 13:59 | NUR ---
CM/SS, patient has been accepted clinically to [facility], however, they are pursuing authorization of benefits from patient's Medicare replacement HMO. No final determination until authorization confirmed.
--- NOTE | 2018-09-16 14:01 | NUR ---
Pastoral care visit.
[2018-09-16 16:30] VITALS: BP 124/63
[2018-09-16] MEDS ORDERED: RT-LEVALBUTEROL (XOPENEX) 1.25 MG/3 ML NEB NON-FORMULARY INH PRN (18:30)
[2018-09-16] MEDS ORDERED: RT-LEVALBUTEROL (XOPENEX) 1.25 MG/3 ML NEB NON-FORMULARY ONE (18:31)
[2018-09-16] MEDS ORDERED: NON-FORMULARY MEDICATION 1 EA EA (Budesonide/Formoterol Fumarate (Symbicort 160-4.5 Mcg In INH SCH (21:00)
[2018-09-16] MEDS: RT-ADVAIR HFA 115/21 MCG PER PUFF IH SCH (22:00)
[2018-09-16] MEDS: ESTROGENS CONJ. CREAM 30 GM (PREMARIN) TUBE VG SCH (22:36)
--- NOTE | 2018-09-16 23:11 | Cardiology Progress Note ---
Cardiology SOAP Progress Note Subjective: No cardiac complaints. Objective: I&O/Vital Signs 09/17/18 14:31 B/P (MAP) 09/17/18 00:00 Intake Total 2430 ml Output Total 1075 ml Balance 1355 ml Weight (Pounds): 263 Weight (Ounces): 1.2 Weight (Calculated Kilograms): 119.569788 Constitutional: other (poor memory, well-devolped, obese) Respiratory: No accessory muscle use; other (fair to good bilat air entry, diminished at the bases) Cardiovascular: regular rate-rhythm, S1 and S2, systolic murmur (soft ASHELY at card bse) Gastrointestional: No tender; soft; No guarding, No rebound; audible bowel sounds Extremities: other (bilateral, pitting and non-pitting leg swelling); No clubbing, No cyanosis Neurologic/Psychiatric: other (has poor recent; seem oriented to person and place; seems to be able to move all limbs; we did not attempt any motion at the affected joint) Skin: No rash on exposed areas, No ulcerations on exposed areas Results/Procedures: Labs Laboratory Tests 09/17/18 05:50: White Blood Count 6.6, Red Blood Count 3.58L, Hemoglobin 9.9L, Hematocrit 29L, Mean Corpuscular Volume 81, Mean Corpuscular Hemoglobin 28, Mean Corpuscular Hemoglobin Concent 34, Red Cell Distribution Width 14.6H, Platelet Count 96L, Mean Platelet Volume 11.4H, Neutrophils (%) (Auto) 54, Lymphocytes (%) (Auto) 26, Monocytes (%) (Auto) 18H, Eosinophils (%) (Auto) 1, Basophils (%) (Auto) 0, Neutrophils # (Auto) 3.6, Lymphocytes # (Auto) 1.7, Monocytes # (Auto) 1.2H, Eosinophils # (Auto) 0.1, Basophils # (Auto) 0.0, Sodium Level 128L, Potassium Level 4.5, Chloride Level 99, Carbon Dioxide Level 21, Anion Gap 8, Blood Urea Nitrogen 21H, Creatinine 0.99, Estimat Glomerular Filtration Rate 54, BUN/Creatinine Ratio 21, Glucose Level 110H, Calcium Level 8.7, Corrected Calcium 10.0, Total Bilirubin 0.6, Aspartate Amino Transf (AST/SGOT) 24, Alanine Aminotransferase (ALT/SGPT) 8, Alkaline Phosphatase 97, Total Protein 6.0L, Albumin 2.4L Microbiology 09/13/18 Blood Culture - Preliminary, Resulted No growth 09/14/18 MRSA Screen - Final, Complete A/P: Assessment/Dx: Non-syncopal fall leading to non-displaced R greater trochanteric fracture, managed conservatively Echocardiogram of June 08, [address] Oliveira showed LVEF 55-65%. Grade 1 edgar tolic dysfunction. LA dilated PAF Hypertension Obesity Poor memory or dementia RBBB on ECG H/o CHF of which pt or family know no details Hyponatremia likely related to chronic diuretic therapy Plan: Plan: * Continue long-acting Diltiazem * Continue Apixaban for stroke prophylaxis * Continue diuretics * Replenish lytes * Monitor labs Thank you for your consultation. Please call me if you have any questions. Tom Collins MD, FACP, FACC, FSCAI, FHRS, CCDS Interventional Cardiology Cardiac Electrophysiology Vascular Medicine and Endovascular Interventions Gabe COLLINS MD Sep 16, 2018 23:11
[2018-09-17] VITALS: BP 122/73
[2018-09-17] MEDS: HYDROcodone/APAP 5 MG/325 MG (LORTAB) TAB PO PRN ×2 (00:28→04:55)
[2018-09-17] MEDS: ACETAMINOPHEN 325 MG TABLET PO SCH ×3 (00:32→11:32)
[2018-09-17 06:10] LABS: BASOPHILS % (AUTO) 0 % (0-10); EOSINOPHILS # (AUTO) 0.1 10^3/uL (0.0-0.3); EOSINOPHILS % (AUTO) 1 % (0-10); HEMATOCRIT 29 % (35-52); HEMOGLOBIN 9.9 G/DL (11.5-16.0); LYMPHOCYTES # (AUTO) 1.7 X 10^3 (1.0-4.0); LYMPHOCYTES % (AUTO) 26 % (12-44); MEAN CORPUSCULAR HEMOGLOBIN 28 PG (25-34); MEAN CORPUSCULAR HGB CONC 34 G/DL (32-36); MEAN CORPUSCULAR VOLUME 81 FL (80-99); MEAN PLATELET VOLUME 11.4 FL (7.4-10.4); MONOCYTES # (AUTO) 1.2 X 10^3 (0.0-1.0); MONOCYTES % (AUTO) 18 % (0-12); NEUTROPHILS # (AUTO) 3.6 X 10^3 (1.8-7.8); NEUTROPHILS % (AUTO) 54 % (42-75); PLATELET COUNT 96 10^3/uL (130-400); RED CELL DISTRIBUTION WIDTH 14.6 % (10.0-14.5); WHITE BLOOD COUNT 6.6 10^3/uL (4.3-11.0)
[2018-09-17 06:26] LABS: ALBUMIN 2.4 GM/DL (3.2-4.5); BILIRUBIN,TOTAL 0.6 MG/DL (0.1-1.0); CALCIUM 8.7 MG/DL (8.5-10.1); CREATININE SERUM 0.99 MG/DL (0.60-1.30); POTASSIUM 4.5 MMOL/L (3.6-5.0)
[2018-09-17] MEDS: RT-ADVAIR HFA 115/21 MCG PER PUFF IH SCH (07:23)
[2018-09-17 08:00] VITALS: BP 125/74
[2018-09-17] MEDS ORDERED: CEFDINIR 300 MG (OMNICEF) CAP PO SCH (09:00)
[2018-09-17] MEDS: SPIRONOLACTONE 25 MG (ALDACTONE) TAB PO SCH (09:14)
[2018-09-17] MEDS: meTOprolol TARTRATE 25 MG (LOPRESSOR) TABLET PO SCH (09:15)
[2018-09-17] MEDS: APIXABAN 5 MG (ELIQUIS) TABLET PO SCH (09:15)
[2018-09-17] MEDS: FUROSEMIDE 40 MG (LASIX) TAB PO SCH (09:15)
[2018-09-17] MEDS: KCL 20 MEQ TAB (K-DUR) PO SCH (09:15)
[2018-09-17] MEDS: NYSTATIN OINTMENT 30 GM TUBE TOP SCH (09:15)
[2018-09-17] MEDS: ISOSORBIDE MONONITRATE 30 MG (IMDUR) TAB PO SCH (09:15)
[2018-09-17] MEDS: SERTRALINE 50 MG (ZOLOFT) TABLET PO SCH (09:15)
[2018-09-17] MEDS: DILTIAZEM 120 MG (CARDIZEM CD) CAP PO SCH (09:15)
[2018-09-17] MEDS ORDERED: FURO40TA4 PO (09:47)
[2018-09-17] MEDS ORDERED: TAPE50TA2 PO (09:47)
[2018-09-17] MEDS ORDERED: NYST15OI13 TOP (09:47)
[2018-09-17] MEDS ORDERED: CEFD300C3 PO (09:47)
--- NOTE | 2018-09-17 09:52 | Discharge Inst-Skilled Nursing ---
Discharge Inst-Skilled NF Patient Instructions Patient Problems: Severe debility Hip fracture non-surgical Goal: Independent ADL's Consult/Follow Up/Orders Follow Up Appt.: Dr Sharpe in 1 week Skilled NF Admit to: [facility] Certification ([facility]) I certify that SNF services are required to be given on an inpatient basis because of the above named patient's need for nursing home care on a continuing basis for the conditions(s) for which he/she was receiving inpatient hospital services prior to his/her transfer to the SNF. Longterm Facility Order: Nursing Services, Partition Setter-Evaluate & Treat, Physical Therapy-Evaluate & Treat, Speech Language-Evaluate & Treat Oxygen Delivery Method: Nasal Cannula Daily Activity as Tolerated: Yes New & Resume Previous Orders Ida Fonseca Sep 17, 2018 09:51 IDA FONSECA DO Sep 17, 2018 09:52
--- NOTE | 2018-09-17 09:52 | Discharge Summary-Hospitalist ---
Diagnosis/Chief Complaint Date of Admission Sep 14, 2018 at 12:55 Date of Discharge Discharge Date: Sep 17, 2018 Admission Diagnosis Nondisplaced fracture right greater trochanter. 2.history of atrial fibrillation post-cardioversion. 3.history of congestive heart failure. Discharge Diagnosis (1) Trochanteric fracture of right femur Status: Acute (2) Fall Status: Acute (3) UTI (urinary tract infection) Status: Acute (4) Hyponatremia Status: Acute (5) Generalized weakness Status: Chronic (6) Acute coronary syndrome Status: Chronic (7) CHF (congestive heart failure) Status: Chronic (8) History of atrial fibrillation Status: Chronic Discharge Summary Discharge Physical Exam Allergies: Coded Allergies: lisinopril (Verified Allergy, Unknown, 09/13/18) metolazone (Verified Allergy, Unknown, 09/13/18) oxycodone (Verified Allergy, Unknown, 09/13/18) tramadol (Verified Allergy, Unknown, 09/13/18) valdecoxib (Verified Allergy, Unknown, 09/13/18) codeine (Verified Adverse Reaction, Unknown, 09/13/18) fentanyl (Verified Adverse Reaction, Unknown, 09/13/18) hydrocodone (Verified Adverse Reaction, Unknown, 09/13/18) morphine (Verified Adverse Reaction, Unknown, 09/13/18) Vitals & I&Os Vital Signs Date Time Temp Pulse Resp B/P (MAP) Pulse Ox O2 Delivery O2 Flow Rate FiO2 09/17/18 14:31 09/17/18 08:00 Nasal Cannula 2.00 09/17/18 08:00 97.7 70 18 90 General Appearance: No Apparent Distress, WD/WN Respiratory: Chest Non Tender, Lungs Clear, Normal Breath Sounds, No Accessory Muscle Use, No Respiratory Distress Cardiovascular: Regular Rate, Rhythm, No Edema, No Gallop, No JVD, No Murmur, Normal Peripheral Pulses Neurologic/Psychiatric: Alert, Oriented x3, No Motor/Sensory Deficits, transition specialist II- XII Norm as Tested, Depressed Affect Hospital Course Was the Problem List Reviewed?: Yes Hospital Course: Pt had a lengthy hospital course after she was admitted after a fall found to have an intertrochanteric fracture that was not a surgical requriment condition so she was managed with pain medication and UTI will be managed on oral antibiotics of Cefdinir for an additional three days and she was able to b epalced [facility] a penitentiary for skilled care. Pt overall has a poor prognosis shes got multiple medical poblems, advanced age at 78 and severely debilitated even before going to a penitentiary so hopefully pt will be able to regain some function and strength and have a good quality of live when DC to the penitentiary. Labs (last 24 hrs) Laboratory Tests 09/17/18 05:50: White Blood Count 6.6, Red Blood Count 3.58L, Hemoglobin 9.9L, Hematocrit 29L, Mean Corpuscular Volume 81, Mean Corpuscular Hemoglobin 28, Mean Corpuscular Hemoglobin Concent 34, Red Cell Distribution Width 14.6H, Platelet Count 96L, Mean Platelet Volume 11.4H, Neutrophils (%) (Auto) 54, Lymphocytes (%) (Auto) 26, Monocytes (%) (Auto) 18H, Eosinophils (%) (Auto) 1, Basophils (%) (Auto) 0, Neutrophils # (Auto) 3.6, Lymphocytes # (Auto) 1.7, Monocytes # (Auto) 1.2H, Eosinophils # (Auto) 0.1, Basophils # (Auto) 0.0, Sodium Level 128L, Potassium Level 4.5, Chloride Level 99, Carbon Dioxide Level 21, Anion Gap 8, Blood Urea Nitrogen 21H, Creatinine 0.99, Estimat Glomerular Filtration Rate 54, BUN/Creatinine Ratio 21, Glucose Level 110H, Calcium Level 8.7, Corrected Calcium 10.0, Total Bilirubin 0.6, Aspartate Amino Transf (AST/SGOT) 24, Alanine Aminotransferase (ALT/SGPT) 8, Alkaline Phosphatase 97, Total Protein 6.0L, Albumin 2.4L Microbiology 09/13/18 Blood Culture - Preliminary, Resulted No growth 09/14/18 MRSA Screen - Final, Complete Patient resulted labs reviewed. Pending Labs Discussion & Recommendations Discharge Planning: <30 minutes discharge planning Discharge Home Medications: Active Scripts Active Nystatin 15 Gm Oint...g. 0 Gm TOP BID 7 Days Furosemide 40 Mg Tablet 40 Mg PO DAILY 30 Days Cefdinir 300 Mg Capsule 300 Mg PO BID 6 Days Nucynta (Tapentadol HCl) 50 Mg Tablet 50 Mg PO Q6H PRN Furosemide 40 Mg Tablet 40 Mg PO DAILY Diltiazem 24Hr Cd (Diltiazem HCl) 120 Mg Cap.er.24h 120 Mg PO DAILY Reported Ondansetron Odt (Ondansetron) 4 Mg Tab.rapdis 4 Mg PO Q4H PRN Claritin (Loratadine) 10 Mg Tablet 10 Mg PO DAILY PRN Cyclobenzaprine HCl 5 Mg Tablet 5 Mg PO Q4H PRN Levalbuterol Tartrate Hfa (Levalbuterol Tartrate) 15 Gm Hfa.aer.ad 2 Puff INH Q4H PRN Atorvastatin Calcium 40 Mg Tablet 40 Mg PO HS Metoprolol Tartrate 25 Mg Tablet 25 Mg PO BID [Dry Mouth Lozenge] 1 Lozenge MM UD PRN Oral Analgesic (Benzocaine) 9 Gm Gel..gram. MM UD PRN [Magic Mouthwash] 5-10 Ml PO EVERY 6-8 HOURS PRN SWISH AND SPIT Tums (Calcium Carbonate) 300 Mg Tab.chew 1-2 Tab.chew PO UD PRN Ondansetron HCl 4 Mg Tablet 4 Mg PO Q6H PRN Potassium Chloride 20 Meq Tab.er.prt 20 Meq PO DAILY Eliquis (Apixaban) 5 Mg Tablet 5 Mg PO BID Isosorbide Mononitrate ER (Isosorbide Mononitrate) 30 Mg Tab.er.24h 30 Mg PO DAILY Spironolactone 25 Mg Tablet 25 Mg PO DAILY Magnesium (Magnesium Oxide) 400 Mg Tablet 400 Mg PO DAILY Symbicort 160-4.5 Mcg Inhaler (Budesonide/Formoterol Fumarate) 10.2 Gm Hfa.aer.ad 2 Puff INH BID Premarin (Estrogens Conjugated) 30 Gm Cr 0.3 Mg VG MOWEFR Tylenol Extra Strength (Acetaminophen) 500 Mg Tablet 500-1,000 Mg PO Q6H PRN TAKES 1-2 (500MG) TABLETS Sertraline HCl 50 Mg Tablet 50 Mg PO DAILY [place] (Menthol) 5.8 Mg Lozenge 1 Lozenge MM UD PRN Mucinex (Guaifenesin) 1,200 Mg Tab.er.12h 1,200 Mg PO BID Benzonatate 100 Mg Capsule 100 Mg PO TID PRN Instructions to patient/family Please see electronic discharge instructions given to patient. Clinical Quality Measures DVT/VTE Risk/Contraindication: Risk Factor Score Per Nursin RFS Level Per Nursing on Admit: 2=Moderate Problem Qualifiers (1) Trochanteric fracture of right femur: Encounter type: subsequent encounter Fracture type: closed Fracture healing: with routine healing Qualified Codes: S72.101D - Unspecified trochanteric fracture of right femur, subsequent encounter for closed fracture with routine healing (2) Fall: Encounter type: subsequent encounter Qualified Codes: W19.XXXD - Unspecified fall, subsequent encounter (3) UTI (urinary tract infection): Urinary tract infection type: acute cystitis Hematuria presence: without hematuria Qualified Codes: N30.00 - Acute cystitis without hematuria (4) CHF (congestive heart failure): Heart failure type: diastolic Heart failure chronicity: chronic Qualified Codes: I50.32 - Chronic diastolic (congestive) heart failure DORY LIN DO Sep 17, 2018 09:52
--- NOTE | 2018-09-17 11:19 | NUR ---
CM/SS. Patient has been accepted for skilled admission to [facility] today via their transport scheduled for 1400. Facility understands to bring bariatric wheelchair and O2. Updated patient and daughter, Deb Mulligan. Completed CARE Assessment with patient, Deb will come later for signatures. Will process with [facility]. Faxed orders to [facility], prepared continuum of care packet to accompany patient. Unit RN updated.
--- OUTSIDE RECORDS SUMMARY | 2018-09-18 21:17 | XMS REPORT | Continuity of Care Document ---
Author Organization Unknown Address Unknown Allergies Active Description Code Type Severity Reaction Onset Reported/Identified Relationship to Patient Clinical Status Yes codeine [id number] Drug Allergy Unknown N/A 09/13/2018 Yes fentanyl [id number] Drug Allergy Unknown N/A 09/13/2018 Yes hydrocodone [id number] Drug Allergy Unknown N/A 09/13/2018 Yes lisinopril [id number] Drug Allergy Unknown N/A 09/13/2018 Yes metolazone [id number] Drug Allergy Unknown N/A 09/13/2018 Yes morphine [id number] Drug Allergy Unknown N/A 09/13/2018 Yes oxycodone [id number] Drug Allergy Unknown N/A 09/13/2018 Yes tramadol [id number] Drug Allergy Unknown N/A 09/13/2018 Yes valdecoxib [id number] Drug Allergy Unknown N/A 09/13/2018 Medications There is no data. Problems Date [...] TO OTH DRUG/MEDS/BIOL SUB 05/13/2018 AMILCAR HAYDEN BROADCAST OPERATIONS TECHNICIAN Ot R05 COUGH 05/13/2018 AMILCAR HAYDEN BROADCAST OPERATIONS TECHNICIAN Ot R06.89 OTHER ABNORMALITIES OF BREATHING 05/19/2018 AMILCAR HAYDEN BROADCAST OPERATIONS TECHNICIAN Ot R05 COUGH 05/19/2018 AMILCAR HAYDEN BROADCAST OPERATIONS TECHNICIAN Ot R06.89 OTHER ABNORMALITIES OF BREATHING 06/03/2018 AMILCAR HAYDEN BROADCAST OPERATIONS TECHNICIAN Ot R05 COUGH 06/03/2018 AMILCAR HAYDEN BROADCAST OPERATIONS TECHNICIAN Ot R06.89 OTHER ABNORMALITIES OF BREATHING 06/10/2018 PADMAJA LEY Ot I10 ESSENTIAL (PRIMARY) HYPERTENSION 06/10/2018 PADMAJA LEY Ot I48.0 PAROXYSMAL ATRIAL FIBRILLATION 06/10/2018 PADMAJA LEY Ot R06.00 DYSPNEA, UNSPECIFIED 06/10/2018 PADMAJA LEY Ot R07.89 OTHER CHEST PAIN 06/22/2018 AMILCAR HAYDEN BROADCAST OPERATIONS TECHNICIAN Ot R05 COUGH 06/22/2018 AMILCAR HAYDEN BROADCAST OPERATIONS TECHNICIAN Ot R06.89 OTHER ABNORMALITIES OF BREATHING 06/22/2018 AMILCAR HAYDEN BROADCAST OPERATIONS TECHNICIAN Ot G47.10 HYPERSOMNIA, UNSPECIFIED 06/22/2018 AMILCAR HAYDEN BROADCAST OPERATIONS TECHNICIAN Ot G47.50 PARASOMNIA, UNSPECIFIED 06/22/2018 JACKELYN, AMILCAR E BROADCAST OPERATIONS TECHNICIAN Ot I48.91 UNSPECIFIED ATRIAL FIBRILLATION 06/22/2018 AMILCAR HAYDEN E BROADCAST OPERATIONS TECHNICIAN Ot 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 06/22/2018 [...] R07.89 OTHER CHEST PAIN 07/03/2018 AMILCAR HAYDEN BROADCAST OPERATIONS TECHNICIAN Ot G47.10 HYPERSOMNIA, UNSPECIFIED 07/03/2018 AMILCAR HAYDEN E BROADCAST OPERATIONS TECHNICIAN Ot G47.50 PARASOMNIA, UNSPECIFIED 07/03/2018 BO HAYDENINE E BROADCAST OPERATIONS TECHNICIAN Ot I48.91 UNSPECIFIED ATRIAL FIBRILLATION 07/03/2018 AMILCAR HAYDEN E BROADCAST OPERATIONS TECHNICIAN Ot 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 07/20/2018 [...] Bolden Ot I10 ESSENTIAL (PRIMARY) HYPERTENSION 09/04/2018 AMARILYS GUERRERO, TAE Bolden Ot R06.00 DYSPNEA, UNSPECIFIED 09/04/2018 TAE PANDA MD Ot R07.89 OTHER CHEST PAIN 09/17/2018 LENO CHARLIE K Ot E78.00 PURE HYPERCHOLESTEROLEMIA, UNSPECIFIED 09/17/2018 LENO DO CHARLIE K Ot F32.9 MAJOR DEPRESSIVE DISORDER, SINGLE EPISOD 09/17/2018 LENO DO, CHARLIE K Ot F41.9 ANXIETY DISORDER, UNSPECIFIED 09/17/2018 LENO DO, CHARLIE K Ot I11.0 HYPERTENSIVE HEART DISEASE WITH HEART FA 09/17/2018 LENO DO CHARLIE K Ot I48.91 UNSPECIFIED ATRIAL FIBRILLATION 09/17/2018 LENO DO CHARLIE K Ot I50.9 HEART FAILURE, UNSPECIFIED 09/17/2018 LENO DO CHARLIE K Ot N39.0 URINARY TRACT INFECTION, SITE NOT SPECIF 09/17/2018 LENO CHARLIE K Ot R30.0 DYSURIA 09/17/2018 LENO BERNAL CHARLIE K Ot Z86.73 PRSNL HX OF TIA (TIA), AND CEREB INFRC W 09/17/2018 LENO BERNAL CHARLIE K Ot Z88.5 ALLERGY STATUS TO NARCOTIC AGENT STATUS 09/17/2018 LENO DO CHARLIE K Ot Z88.8 ALLERGY STATUS TO OTH DRUG/MEDS/BIOL SUB 09/17/2018 LENO BERNAL CHARLIE K Ot Z96.653 PRESENCE OF ARTIFICIAL KNEE JOINT, BILAT 09/17/2018 LENO BERNAL CHARLIE K Ot Z98.1 ARTHRODESIS STATUS 09/17/2018 CALLIE GRANDE MD Ot E66.9 OBESITY, UNSPECIFIED 09/17/2018 CALLIE GRANDE MD Ot E78.00 PURE HYPERCHOLESTEROLEMIA, UNSPECIFIED 09/17/2018 CALLIE GRANDE MD Ot E83.42 HYPOMAGNESEMIA 09/17/2018 CALLIE GRANDE MD Ot E87.1 HYPO-OSMOLALITY AND HYPONATREMIA 09/17/2018 CALLIE GRANDE MD Ot F03.90 UNSPECIFIED DEMENTIA WITHOUT BEHAVIORAL 09/17/2018 CALLIE GRANDE MD Ot F32.9 MAJOR DEPRESSIVE DISORDER, SINGLE EPISOD 09/17/2018 CALLIE GRANDE MD Ot F41.9 ANXIETY DISORDER, UNSPECIFIED 09/17/2018 CALLIE GRANDE MD Ot H35.30 UNSPECIFIED MACULAR DEGENERATION 09/17/2018 CALLIE GRANDE MD, Ot H53.2 DIPLOPIA 09/17/2018 CALLIE GRANDE MD Ot I11.0 HYPERTENSIVE HEART DISEASE WITH HEART FA 09/17/2018 CALLIE GRANDE MD Ot I45.10 UNSPECIFIED RIGHT BUNDLE-BRANCH BLOCK 09/17/2018 CALLIE GRANDE MD, Ot I48.0 PAROXYSMAL ATRIAL FIBRILLATION 09/17/2018 CALLIE GRANDE MD, Ot I50.9 HEART FAILURE, UNSPECIFIED 09/17/2018 CALLIE GRANDE MD Ot 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 09/17/2018 CALLIE GRANDE MD, Ot J44.9 CHRONIC OBSTRUCTIVE PULMONARY DISEASE, U 09/17/2018 CALLIE GRANDE MD, Ot N30.00 ACUTE CYSTITIS WITHOUT HEMATURIA 09/17/2018 CALLIE GRANDE MD, Ot R01.1 CARDIAC MURMUR, UNSPECIFIED 09/17/2018 CALLIE GRNADE MD, Ot R41.3 OTHER AMNESIA 09/17/2018 CALLIE GRANDE MD, Ot R53.1 WEAKNESS 09/17/2018 CALLIE GRANDE MD Ot S60.212A CONTUSION OF LEFT WRIST, INITIAL ENCOUNT 09/17/2018 CALLIE GRANDE MD, Ot S72.111A DISP FX OF GREATER TROCHANTER OF RIGHT F 09/17/2018 CALLIE GRANDE MD, Ot T50.2X5A ADVRS EFF OF CRBNC-ANHYDR INHIBTR, BENZO 09/17/2018 CALLIE GRANDE MD, Ot W19.XXXA UNSPECIFIED FALL, INITIAL ENCOUNTER 09/17/2018 CALLIE GRANDE MD Ot Y92.[address] IN LONGTERM PLACE 09/17/2018 CALLIE GRANDE MD Ot Z66 DO NOT RESUSCITATE 09/17/2018 CALLIE GRANDE MD, Ot Z68.41 BODY MASS INDEX (BMI) 40.0-44.9, ADULT 09/17/2018 CALLIE GRANDE MD Ot 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 09/17/2018 CALLIE GRANDE MD Ot Z96.653 PRESENCE OF ARTIFICIAL KNEE JOINT, BILAT 09/17/2018 CALLIE GRANDE MD Ot Z98.1 ARTHRODESIS STATUS 09/18/2018 CALLIE GRANDE MD Ot E66.9 OBESITY, UNSPECIFIED 09/18/2018 CALLIE GRANDE MD Ot E78.00 PURE HYPERCHOLESTEROLEMIA, UNSPECIFIED 09/18/2018 CALLIE GRANDE MD Ot E83.42 HYPOMAGNESEMIA 09/18/2018 CALLIE GRANDE MD Ot E87.1 HYPO-OSMOLALITY AND HYPONATREMIA 09/18/2018 CALLIE GRANDE MD Ot F03.90 UNSPECIFIED DEMENTIA WITHOUT BEHAVIORAL 09/18/2018 CALLIE GRANDE MD Ot F32.9 MAJOR DEPRESSIVE DISORDER, SINGLE EPISOD 09/18/2018 CALLIE GRANDE MD Ot F41.9 ANXIETY DISORDER, UNSPECIFIED 09/18/2018 CALLIE GRANDE MD Ot H35.30 UNSPECIFIED MACULAR DEGENERATION 09/18/2018 CALLIE GRANDE MD Ot H53.2 DIPLOPIA 09/18/2018 CALLIE GRANDE MD Ot I11.0 HYPERTENSIVE HEART DISEASE WITH HEART FA 09/18/2018 CALLIE GRANDE MD Ot I45.10 UNSPECIFIED RIGHT BUNDLE-BRANCH BLOCK 09/18/2018 CALLIE GRANDE MD Ot I48.0 PAROXYSMAL ATRIAL FIBRILLATION 09/18/2018 CALLIE GRANDE MD Ot I50.9 HEART FAILURE, UNSPECIFIED 09/18/2018 CALLIE GRANDE MD Ot 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 09/18/2018 CALLIE GRANDE MD Ot J44.9 CHRONIC OBSTRUCTIVE PULMONARY DISEASE, U 09/18/2018 CALLIE GRANDE MD Ot N30.00 ACUTE CYSTITIS WITHOUT HEMATURIA 09/18/2018 CALLIE GRANDE MD Ot R01.1 CARDIAC MURMUR, UNSPECIFIED 09/18/2018 CALLIE GRANDE MD Ot R41.3 OTHER AMNESIA 09/18/2018 CALLIE GRANDE MD Ot R53.1 WEAKNESS 09/18/2018 CALLIE GRANDE MD Ot S60.212A CONTUSION OF LEFT WRIST, INITIAL ENCOUNT 09/18/2018 CALLIE GRANDE MD Ot S72.111A DISP FX OF GREATER TROCHANTER OF RIGHT F 09/18/2018 CALLIE GRANDE MD Ot T50.2X5A ADVRS EFF OF CRBNC-ANHYDR INHIBTR, BENZO 09/18/2018 CALLIE GRANDE MD, Ot W19.XXXA UNSPECIFIED FALL, INITIAL ENCOUNTER 09/18/2018 CALLIE GRANDE MD Ot Y92.[address] IN LONGTERM PLACE 09/18/2018 CALLIE GRANDE MD Ot Z66 DO NOT RESUSCITATE 09/18/2018 CALLIE GRANDE MD Ot Z68.41 BODY MASS INDEX (BMI) 40.0-44.9, ADULT 09/18/2018 CALLIE GRANDE MD Ot 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 09/18/2018 CALLIE GRANDE MD Ot Z96.653 PRESENCE OF ARTIFICIAL KNEE JOINT, BILAT 09/18/2018 CALLIE GRANDE MD Ot Z98.1 ARTHRODESIS STATUS 09/18/2018 CALLIE GRANDE MD Ot E66.9 OBESITY, UNSPECIFIED 09/18/2018 CALLIE GRANDE MD Ot E78.00 PURE HYPERCHOLESTEROLEMIA, UNSPECIFIED 09/18/2018 CALLIE GRANDE MD Ot E83.42 HYPOMAGNESEMIA 09/18/2018 CALLIE GRANDE MD Ot E87.1 HYPO-OSMOLALITY AND HYPONATREMIA 09/18/2018 CALLIE GRANDE MD Ot F03.90 UNSPECIFIED DEMENTIA WITHOUT BEHAVIORAL 09/18/2018 CALLIE GRANDE MD Ot F32.9 MAJOR DEPRESSIVE DISORDER, SINGLE EPISOD 09/18/2018 CALLIE GRANDE MD, Ot F41.9 ANXIETY DISORDER, UNSPECIFIED 09/18/2018 CALLIE GRANDE MD Ot H35.30 UNSPECIFIED MACULAR DEGENERATION 09/18/2018 CALLIE GRANDE MD Ot H53.2 DIPLOPIA 09/18/2018 CALLIE GRANDE MD Ot I11.0 HYPERTENSIVE HEART DISEASE WITH HEART FA 09/18/2018 CALLIE GRANDE MD Ot I45.10 UNSPECIFIED RIGHT BUNDLE-BRANCH BLOCK 09/18/2018 CALLIE GRANDE MD, Ot I48.0 PAROXYSMAL ATRIAL FIBRILLATION 09/18/2018 CALLIE GRANDE MD, Ot I50.9 HEART FAILURE, UNSPECIFIED 09/18/2018 CALLIE GRANDE MD, Ot 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 09/18/2018 CALLIE GRANDE MD, Ot J44.9 CHRONIC OBSTRUCTIVE PULMONARY DISEASE, U 09/18/2018 CALLIE GRANDE MD, Ot N30.00 ACUTE CYSTITIS WITHOUT HEMATURIA 09/18/2018 CALLIE GRANDE MD, Ot R01.1 CARDIAC MURMUR, UNSPECIFIED 09/18/2018 CALLIE GRANDE MD, Ot R41.3 OTHER AMNESIA 09/18/2018 CALLIE GRANDE MD, Ot R53.1 WEAKNESS 09/18/2018 CALLIE GRANDE MD, Ot S60.212A CONTUSION OF LEFT WRIST, INITIAL ENCOUNT 09/18/2018 CALLIE GRANDE MD, Ot S72.111A DISP FX OF GREATER TROCHANTER OF RIGHT F 09/18/2018 CALLIE GRANDE MD, Ot T50.2X5A ADVRS EFF OF CRBNC-ANHYDR INHIBTR, BENZO 09/18/2018 CALLIE GRANDE MD, Ot W19.XXXA UNSPECIFIED FALL, INITIAL ENCOUNTER 09/18/2018 CALLIE GRANDE MD, Ot Y92.[address] LONGTERM PLACE 09/18/2018 CALLIE GRANDE MD, Ot Z66 DO NOT RESUSCITATE 09/18/2018 CALLIE GRANDE MD, Ot Z68.41 BODY MASS INDEX (BMI) 40.0-44.9, ADULT 09/18/2018 CALLIE GRANDE MD, Ot 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 09/18/2018 CALLIE GRANDE MD, Ot Z96.653 PRESENCE OF ARTIFICIAL KNEE JOINT, BILAT 09/18/2018 CALLIE GRANDE MD, Ot Z98.1 ARTHRODESIS STATUS Procedures There is no data. Results Test [...] NRG Measurement of body temperature 98.7 NRG Complete blood count (CBC) with automated white blood cell (WBC) differential - 09/12/18 15:05 Blood leukocytes automated count (number/volume) 5.9 10*3/uL 4.3-11.0 Blood erythrocytes automated count (number/volume) 4.31 10*6/uL 4.35-5.85 Venous blood hemoglobin measurement (mass/volume) 12.1 g/dL 11.5-16.0 Blood hematocrit (volume fraction) 36 % 35-52 Automated erythrocyte mean corpuscular volume 84 [foz_us] 80-99 Automated erythrocyte mean corpuscular hemoglobin (mass per erythrocyte) 28 pg 25-34 Automated erythrocyte mean corpuscular hemoglobin concentration measurement (mass/volume) 34 g/dL 32-36 Automated erythrocyte distribution width ratio 14.3 % 10.0- 14.5 Automated blood platelet count (count/volume) 144 10*3/uL 130-400 Automated blood platelet mean volume measurement 12.2 [foz_us] 7.4-10.4 Automated blood neutrophils/100 leukocytes 52 % 42-75 Automated blood lymphocytes/100 leukocytes 26 % 12-44 Blood monocytes/100 leukocytes 21 % 0-12 Automated blood eosinophils/100 leukocytes 0 % 0-10 Automated blood basophils/100 leukocytes 1 % 0-10 Blood neutrophils automated count (number/volume) 3.1 10*3 1.8-7.8 Blood lymphocytes automated count (number/volume) 1.5 10*3 1.0-4.0 Blood monocytes automated count (number/volume) 1.2 10*3 0.0- 1.0 Automated eosinophil count 0.0 10*3/uL 0.0-0.3 Automated blood basophil count (count/volume) 0.0 10*3/uL 0.0-0.1 Blood lactic acid measurement (moles/volume) - 09/12/18 15:05 Blood lactic acid measurement (moles/volume) 2.45 mmol/L 0.50- 2.00 Comprehensive metabolic panel - 09/12/18 15:05 Serum or plasma sodium measurement (moles/volume) 131 mmol/L 135-145 Serum or plasma potassium measurement (moles/volume) 4.0 mmol/L 3.6-5.0 Serum or plasma chloride measurement (moles/volume) 96 mmol/L 98-107 Carbon dioxide 25 mmol/L 21-32 Serum or plasma anion gap determination (moles/volume) 10 mmol/L 5-14 Serum or plasma urea nitrogen measurement (mass/volume) 20 mg/dL 7-18 Serum or plasma creatinine measurement (mass/volume) 1.17 mg/dL 0.60-1.30 Serum or plasma urea nitrogen/creatinine mass ratio 17 NRG Serum or plasma creatinine measurement with calculation of estimated glomerular filtration rate 45 NRG Serum or plasma glucose measurement (mass/volume) 115 mg/dL 70-105 Serum or plasma calcium measurement (mass/volume) 8.7 mg/dL 8.5-10.1 Serum or plasma total bilirubin measurement (mass/volume) 0.8 mg/dL 0.1-1.0 Serum or plasma alkaline phosphatase measurement (enzymatic activity/volume) 110 U/L 40-136 Serum or plasma aspartate aminotransferase measurement (enzymatic activity/volume) 23 U/L 5-34 Serum or plasma alanine aminotransferase measurement (enzymatic activity/volume) 9 U/L 0-55 Serum or plasma protein measurement (mass/volume) 6.8 g/dL 6.4-8.2 Serum or plasma albumin measurement (mass/volume) 3.2 g/dL 3.2-4.5 CALCIUM CORRECTED 9.3 mg/dL 8.5-10.1 PT panel in platelet poor plasma by coagulation assay - 09/12/18 15:05 Prothrombin time (PT) in platelet poor plasma by coagulation assay 20.1 s 12.2-14.7 INR in platelet poor plasma or blood by coagulation assay 1.6 0.8-1.4 Activated partial thromboplastin time (aPTT) in platelet poor plasma bycoagulation assay - 09/12/18 15:05 Activated partial thromboplastin time (aPTT) in platelet poor plasma bycoagulation assay 40 s 24-35 Manual absolute plasma cell count - 09/12/18 15:05 Blood monocytes/100 leukocytes 16 % NRG Manual blood segmented neutrophils/100 leukocytes 62 % NRG Manual blood lymphocytes/100 leukocytes 11 % NRG Manual blood basophils/100 leukocytes 1 % NRG Blood lymphocytes variant/100 leukocytes 10 % NRG Blood hypochromia detection by light microscopy MODERATE NRG Bacterial blood culture - 09/12/18 15:05 FREE TEXT EXTERNAL (STREP VIRIDANS GROUP) NRG QUANTITY OF GROWTH Isolated NRG Bacterial blood culture [id number] NRG FREE TEXT ENTRY 2 REPORTED BY COUNT INCLUDES THE [facility] 09/14/18 NRG FREE TEXT ENTRY 3 SEE COMMENTS NRG Capillary blood glucose measurement by glucometer (mass/volume) - 09/12/18 15:14 Capillary blood glucose measurement by glucometer (mass/volume) 110 mg/dL 70-110 Complete urinalysis with reflex to culture - 09/12/18 15:26 Urine color determination YELLOW NRG Urine clarity determination CLEAR NRG Urine pH measurement by test strip 5 5-9 Specific gravity of urine by test strip 1.010 1.016-1.022 Urine protein assay by test strip, semi-quantitative NEGATIVE NEGATIVE Urine glucose detection by automated test strip NEGATIVE NEGATIVE Erythrocytes detection in urine sediment by light microscopy 1+ NEGATIVE Urine ketones detection by automated test strip NEGATIVE NEGATIVE Urine nitrite detection by test strip NEGATIVE NEGATIVE Urine total bilirubin detection by test strip NEGATIVE NEGATIVE Urine urobilinogen measurement by automated test strip (mass/volume) NORMAL NORMAL Urine leukocyte esterase detection by dipstick 3+ NEGATIVE Automated urine sediment erythrocyte count by microscopy (number/high power field) NONE NRG Automated urine sediment leukocyte count by microscopy (number/high power field) [HPF] NRG Bacteria detection in urine sediment by light microscopy MODERATE NRG Squamous epithelial cells detection in urine sediment by light microscopy 2-5 NRG Crystals detection in urine sediment by light microscopy NONE NRG Casts detection in urine sediment by light microscopy PRESENT NRG Mucus detection in urine sediment by light microscopy NEGATIVE NRG Complete urinalysis with reflex to culture CULTURE PENDING NRG Hyaline casts detection in urine sediment by light microscopy 10-25 NRG Bacterial urine culture - 09/12/18 15:26 Bacterial urine culture [id number] NRG COLONY COUNT >100,000/ML NRG FTX;REPORTABLE SUSCEPTIBILITY REPORTED 09/14 12:20 NRG Dirithromycin susceptibility test by disk diffusion - 09/12/18 15:26 Gentamicin susceptibility test by minimum inhibitory concentration <= NRG Trimethoprim/sulfamethoxazole susceptibility test by minimum inhibitoryconcentration <= NRG Levofloxacin susceptibility test by minimum inhibitory concentration <= NRG Ampicillin susceptibility test by minimum inhibitory concentration > NRG Cefazolin susceptibility test by minimum inhibitory concentration > NRG Ceftriaxone susceptibility test by minimum inhibitory concentration <= NRG Ciprofloxacin susceptibility test by minimum inhibitory concentration <= NRG Meropenem susceptibility test by minimum inhibitory concentration <= NRG Nitrofurantoin susceptibility test by minimum inhibitory concentration > NRG Amoxicillin and clavulanate potassium susc RAFAT > NRG Bacterial blood culture - 09/12/18 15:42 Bacterial blood culture NG NRG Serum or plasma lactate measurement (moles/volume) - 09/12/18 17:35 Serum or plasma lactate measurement (moles/volume) 2.18 mmol/L 0.50-2.00 Complete blood count (CBC) with automated white blood cell (WBC) differential - 09/13/18 22:16 Blood leukocytes automated count (number/volume) 6.4 10*3/uL 4.3-11.0 Blood erythrocytes automated count (number/volume) 4.31 10*6/uL 4.35-5.85 Venous blood hemoglobin measurement (mass/volume) 12.0 g/dL 11.5-16.0 Blood hematocrit (volume fraction) 35 % 35-52 Automated erythrocyte mean corpuscular volume 82 [foz_us] 80-99 Automated erythrocyte mean corpuscular hemoglobin (mass per erythrocyte) 28 pg 25-34 Automated erythrocyte mean corpuscular hemoglobin concentration measurement (mass/volume) 34 g/dL 32-36 Automated erythrocyte distribution width ratio 14.2 % 10.0- 14.5 Automated blood platelet count (count/volume) 117 10*3/uL 130-400 Automated blood platelet mean volume measurement 12.3 [foz_us] 7.4-10.4 Automated blood neutrophils/100 leukocytes 53 % 42-75 Automated blood lymphocytes/100 leukocytes 26 % 12-44 Blood monocytes/100 leukocytes 20 % 0-12 Automated blood eosinophils/100 leukocytes 1 % 0-10 Automated blood basophils/100 leukocytes 0 % 0-10 Blood neutrophils automated count (number/volume) 3.4 10*3 1.8-7.8 Blood lymphocytes automated count (number/volume) 1.6 10*3 1.0-4.0 Blood monocytes automated count (number/volume) 1.3 10*3 0.0- 1.0 Automated eosinophil count 0.0 10*3/uL 0.0-0.3 Automated blood basophil count (count/volume) 0.0 10*3/uL 0.0-0.1 Blood lactic acid measurement (moles/volume) - 09/13/18 22:16 Blood lactic acid measurement (moles/volume) 1.49 mmol/L 0.50- 2.00 Comprehensive metabolic panel - 09/13/18 22:16 Serum or plasma sodium measurement (moles/volume) 128 mmol/L 135-145 Serum or plasma potassium measurement (moles/volume) 4.1 mmol/L 3.6-5.0 Serum or plasma chloride measurement (moles/volume) 92 mmol/L 98-107 Carbon dioxide 27 mmol/L 21-32 Serum or plasma anion gap determination (moles/volume) 9 mmol/L 5-14 Serum or plasma urea nitrogen measurement (mass/volume) 21 mg/dL 7-18 Serum or plasma creatinine measurement (mass/volume) 1.30 mg/dL 0.60-1.30 Serum or plasma urea nitrogen/creatinine mass ratio 16 NRG Serum or plasma creatinine measurement with calculation of estimated glomerular filtration rate 40 NRG Serum or plasma glucose measurement (mass/volume) 107 mg/dL 70-105 Serum or plasma calcium measurement (mass/volume) 9.0 mg/dL 8.5-10.1 Serum or plasma total bilirubin measurement (mass/volume) 0.8 mg/dL 0.1-1.0 Serum or plasma alkaline phosphatase measurement (enzymatic activity/volume) 111 U/L 40-136 Serum or plasma aspartate aminotransferase measurement (enzymatic activity/volume) 34 U/L 5-34 Serum or plasma alanine aminotransferase measurement (enzymatic activity/volume) 11 U/L 0-55 Serum or plasma protein measurement (mass/volume) 6.7 g/dL 6.4-8.2 Serum or plasma albumin measurement (mass/volume) 3.0 g/dL 3.2-4.5 CALCIUM CORRECTED 9.8 mg/dL 8.5-10.1 Magnesium - 09/13/18 22:16 Magnesium 1.5 mg/dL 1.8-2.4 Serum or plasma lithium measurement (moles/volume) - 09/13/18 22:16 BNP PT 109.1 pg/mL <100.0 Serum or plasma troponin i.cardiac measurement (mass/volume) - 09/13/18 22:16 Serum or plasma troponin i.cardiac measurement (mass/volume) < ng/mL <0.028 Serum or plasma thyrotropin measurement by detection limit <=0.05 miu/l (units/volume) - 09/13/18 22:16 Serum or plasma thyrotropin measurement by detection limit <=0.05 miu/l (units/volume) 1.68 u[iU]/mL 0.35-4.94 Manual absolute plasma cell count - 09/13/18 22:16 Blood monocytes/100 leukocytes 25 % NRG Manual blood segmented neutrophils/100 leukocytes 83 % NRG Blood band neutrophils/100 leukocytes 1 % NRG Manual blood lymphocytes/100 leukocytes 21 % NRG Bacterial blood culture - 09/13/18 22:16 Bacterial blood culture NG NRG Bacterial blood culture - 09/13/18 22:58 Bacterial blood culture NG NRG Complete urinalysis with reflex to culture - 09/14/18 00:44 Urine color determination YELLOW NRG Urine clarity determination CLEAR NRG Urine pH measurement by test strip 6.5 5-9 Specific gravity of urine by test strip 1.005 1.016-1.022 Urine protein assay by test strip, semi-quantitative NEGATIVE NEGATIVE Urine glucose detection by automated test strip NEGATIVE NEGATIVE Erythrocytes detection in urine sediment by light microscopy NEGATIVE NEGATIVE Urine ketones detection by automated test strip NEGATIVE NEGATIVE Urine nitrite detection by test strip NEGATIVE NEGATIVE Urine total bilirubin detection by test strip NEGATIVE NEGATIVE Urine urobilinogen measurement by automated test strip (mass/volume) NORMAL NORMAL Urine leukocyte esterase detection by dipstick 1+ NEGATIVE Automated urine sediment erythrocyte count by microscopy (number/high power field) NONE NRG Automated urine sediment leukocyte count by microscopy (number/high power field) RARE NRG Bacteria detection in urine sediment by light microscopy TRACE NRG Squamous epithelial cells detection in urine sediment by light microscopy RARE NRG Crystals detection in urine sediment by light microscopy NONE NRG Casts detection in urine sediment by light microscopy NONE NRG Mucus detection in urine sediment by light microscopy NEGATIVE NRG Complete urinalysis with reflex to culture NO NRG Complete blood count (CBC) with automated white blood cell (WBC) differential - 09/14/18 04:51 Blood leukocytes automated count (number/volume) 7.0 10*3/uL 4.3-11.0 Blood erythrocytes automated count (number/volume) 3.96 10*6/uL 4.35-5.85 Venous blood hemoglobin measurement (mass/volume) 11.0 g/dL 11.5-16.0 Blood hematocrit (volume fraction) 33 % 35-52 Automated erythrocyte mean corpuscular volume 83 [foz_us] 80-99 Automated erythrocyte mean corpuscular hemoglobin (mass per erythrocyte) 28 pg 25-34 Automated erythrocyte mean corpuscular hemoglobin concentration measurement (mass/volume) 34 g/dL 32-36 Automated erythrocyte distribution width ratio 14.3 % 10.0- 14.5 Automated blood platelet count (count/volume) 100 10*3/uL 130-400 Automated blood platelet mean volume measurement 12.7 [foz_us] 7.4-10.4 Automated blood neutrophils/100 leukocytes 55 % 42-75 Automated blood lymphocytes/100 leukocytes 25 % 12-44 Blood monocytes/100 leukocytes 20 % 0-12 Automated blood eosinophils/100 leukocytes 0 % 0-10 Automated blood basophils/100 leukocytes 0 % 0-10 Blood neutrophils automated count (number/volume) 3.8 10*3 1.8-7.8 Blood lymphocytes automated count (number/volume) 1.7 10*3 1.0-4.0 Blood monocytes automated count (number/volume) 1.4 10*3 0.0- 1.0 Automated eosinophil count 0.0 10*3/uL 0.0-0.3 Automated blood basophil count (count/volume) 0.0 10*3/uL 0.0-0.1 Comprehensive metabolic panel - 09/14/18 04:51 Serum or plasma sodium measurement (moles/volume) 130 mmol/L 135-145 Serum or plasma potassium measurement (moles/volume) 4.2 mmol/L 3.6-5.0 Serum or plasma chloride measurement (moles/volume) 96 mmol/L 98-107 Carbon dioxide 26 mmol/L 21-32 Serum or plasma anion gap determination (moles/volume) 8 mmol/L 5-14 Serum or plasma urea nitrogen measurement (mass/volume) 20 mg/dL 7-18 Serum or plasma creatinine measurement (mass/volume) 1.16 mg/dL 0.60-1.30 Serum or plasma urea nitrogen/creatinine mass ratio 17 NRG Serum or plasma creatinine measurement with calculation of estimated glomerular filtration rate 45 NRG Serum or plasma glucose measurement (mass/volume) 119 mg/dL 70-105 Serum or plasma calcium measurement (mass/volume) 8.4 mg/dL 8.5-10.1 Serum or plasma total bilirubin measurement (mass/volume) 0.7 mg/dL 0.1-1.0 Serum or plasma alkaline phosphatase measurement (enzymatic activity/volume) 93 U/L 40-136 Serum or plasma aspartate aminotransferase measurement (enzymatic activity/volume) 30 U/L 5-34 Serum or plasma alanine aminotransferase measurement (enzymatic activity/volume) 11 U/L 0-55 Serum or plasma protein measurement (mass/volume) 6.1 g/dL 6.4-8.2 Serum or plasma albumin measurement (mass/volume) 2.7 g/dL 3.2-4.5 CALCIUM CORRECTED 9.4 mg/dL 8.5-10.1 Magnesium - 09/14/18 04:51 Magnesium 1.7 mg/dL 1.8-2.4 Methicillin resistant Staphylococcus aureus (MRSA) screening culture - 09/14/18 13:10 MRSA SCREEN RESULT MRSA ISOLATED [facility] Complete blood count (CBC) with automated white blood cell (WBC) differential - 09/15/18 06:05 Blood leukocytes automated count (number/volume) 7.4 10*3/uL 4.3-11.0 Blood erythrocytes automated count (number/volume) 3.97 10*6/uL 4.35-5.85 Venous blood hemoglobin measurement (mass/volume) 11.1 g/dL 11.5-16.0 Blood hematocrit (volume fraction) 32 % 35-52 Automated erythrocyte mean corpuscular volume 81 [foz_us] 80-99 Automated erythrocyte mean corpuscular hemoglobin (mass per erythrocyte) 28 pg 25-34 Automated erythrocyte mean corpuscular hemoglobin concentration measurement (mass/volume) 35 g/dL 32-36 Automated erythrocyte distribution width ratio 14.1 % 10.0- 14.5 Automated blood platelet count (count/volume) 62 10*3/uL 130- 400 Automated blood neutrophils/100 leukocytes 46 % 42-75 Automated blood lymphocytes/100 leukocytes 32 % 12-44 Blood monocytes/100 leukocytes 20 % 0-12 Automated blood eosinophils/100 leukocytes 1 % 0-10 Automated blood basophils/100 leukocytes 0 % 0-10 Blood neutrophils automated count (number/volume) 3.4 10*3 1.8-7.8 Blood lymphocytes automated count (number/volume) 2.4 10*3 1.0-4.0 Blood monocytes automated count (number/volume) 1.5 10*3 0.0- 1.0 Automated eosinophil count 0.1 10*3/uL 0.0-0.3 Automated blood basophil count (count/volume) 0.0 10*3/uL 0.0-0.1 Whole blood basic metabolic panel - 09/15/18 06:05 Serum or plasma sodium measurement (moles/volume) 129 mmol/L 135-145 Serum or plasma potassium measurement (moles/volume) 4.3 mmol/L 3.6-5.0 Serum or plasma chloride measurement (moles/volume) 98 mmol/L 98-107 Carbon dioxide 20 mmol/L 21-32 Serum or plasma anion gap determination (moles/volume) 11 mmol/L 5-14 Serum or plasma urea nitrogen measurement (mass/volume) 19 mg/dL 7-18 Serum or plasma creatinine measurement (mass/volume) 1.16 mg/dL 0.60-1.30 Serum or plasma urea nitrogen/creatinine mass ratio 16 NRG Serum or plasma creatinine measurement with calculation of estimated glomerular filtration rate 45 NRG Serum or plasma glucose measurement (mass/volume) 78 mg/dL 70-105 Serum or plasma calcium measurement (mass/volume) 8.2 mg/dL 8.5-10.1 Magnesium - 09/15/18 06:05 Magnesium 2.1 mg/dL 1.8-2.4 Automated blood complete blood count (hemogram) panel - 09/16/18 05:30 Blood leukocytes automated count (number/volume) 6.0 10*3/uL 4.3-11.0 Blood erythrocytes automated count (number/volume) 3.70 10*6/uL 4.35-5.85 Venous blood hemoglobin measurement (mass/volume) 10.2 g/dL 11.5-16.0 Blood hematocrit (volume fraction) 30 % 35-52 Automated erythrocyte mean corpuscular volume 82 [foz_us] 80-99 Automated erythrocyte mean corpuscular hemoglobin (mass per erythrocyte) 28 pg 25-34 Automated erythrocyte mean corpuscular hemoglobin concentration measurement (mass/volume) 34 g/dL 32-36 Automated erythrocyte distribution width ratio 14.6 % 10.0- 14.5 Automated blood platelet count (count/volume) 92 10*3/uL 130- 400 Automated blood platelet mean volume measurement 12.6 [foz_us] 7.4-10.4 Whole blood basic metabolic panel - 09/16/18 05:30 Serum or plasma sodium measurement (moles/volume) 130 mmol/L 135-145 Serum or plasma potassium measurement (moles/volume) 4.1 mmol/L 3.6-5.0 Serum or plasma chloride measurement (moles/volume) 101 mmol/L 98-107 Carbon dioxide 20 mmol/L 21-32 Serum or plasma anion gap determination (moles/volume) 9 mmol/L 5-14 Serum or plasma urea nitrogen measurement (mass/volume) 21 mg/dL 7-18 Serum or plasma creatinine measurement (mass/volume) 0.96 mg/dL 0.60-1.30 Serum or plasma urea nitrogen/creatinine mass ratio 22 NRG Serum or plasma creatinine measurement with calculation of estimated glomerular filtration rate 56 NRG Serum or plasma glucose measurement (mass/volume) 108 mg/dL 70-105 Serum or plasma calcium measurement (mass/volume) 8.0 mg/dL 8.5-10.1 Magnesium - 09/16/18 05:30 Magnesium 1.7 mg/dL 1.8-2.4 Complete blood count (CBC) with automated white blood cell (WBC) differential - 09/17/18 05:50 Blood leukocytes automated count (number/volume) 6.6 10*3/uL 4.3-11.0 Blood erythrocytes automated count (number/volume) 3.58 10*6/uL 4.35-5.85 Venous blood hemoglobin measurement (mass/volume) 9.9 g/dL 11.5-16.0 Blood hematocrit (volume fraction) 29 % 35-52 Automated erythrocyte mean corpuscular volume 81 [foz_us] 80-99 Automated erythrocyte mean corpuscular hemoglobin (mass per erythrocyte) 28 pg 25-34 Automated erythrocyte mean corpuscular hemoglobin concentration measurement (mass/volume) 34 g/dL 32-36 Automated erythrocyte distribution width ratio 14.6 % 10.0- 14.5 Automated blood platelet count (count/volume) 96 10*3/uL 130- 400 Automated blood platelet mean volume measurement 11.4 [foz_us] 7.4-10.4 Automated blood neutrophils/100 leukocytes 54 % 42-75 Automated blood lymphocytes/100 leukocytes 26 % 12-44 Blood monocytes/100 leukocytes 18 % 0-12 Automated blood eosinophils/100 leukocytes 1 % 0-10 Automated blood basophils/100 leukocytes 0 % 0-10 Blood neutrophils automated count (number/volume) 3.6 10*3 1.8-7.8 Blood lymphocytes automated count (number/volume) 1.7 10*3 1.0-4.0 Blood monocytes automated count (number/volume) 1.2 10*3 0.0- 1.0 Automated eosinophil count 0.1 10*3/uL 0.0-0.3 Automated blood basophil count (count/volume) 0.0 10*3/uL 0.0-0.1 Comprehensive metabolic panel - 09/17/18 05:50 Serum or plasma sodium measurement (moles/volume) 128 mmol/L 135-145 Serum or plasma potassium measurement (moles/volume) 4.5 mmol/L 3.6-5.0 Serum or plasma chloride measurement (moles/volume) 99 mmol/L 98-107 Carbon dioxide 21 mmol/L 21-32 Serum or plasma anion gap determination (moles/volume) 8 mmol/L 5-14 Serum or plasma urea nitrogen measurement (mass/volume) 21 mg/dL 7-18 Serum or plasma creatinine measurement (mass/volume) 0.99 mg/dL 0.60-1.30 Serum or plasma urea nitrogen/creatinine mass ratio 21 NRG Serum or plasma creatinine measurement with calculation of estimated glomerular filtration rate 54 NRG Serum or plasma glucose measurement (mass/volume) 110 mg/dL 70-105 Serum or plasma calcium measurement (mass/volume) 8.7 mg/dL 8.5-10.1 Serum or plasma total bilirubin measurement (mass/volume) 0.6 mg/dL 0.1-1.0 Serum or plasma alkaline phosphatase measurement (enzymatic activity/volume) 97 U/L 40-136 Serum or plasma aspartate aminotransferase measurement (enzymatic activity/volume) 24 U/L 5-34 Serum or plasma alanine aminotransferase measurement (enzymatic activity/volume) 8 U/L 0-55 Serum or plasma protein measurement (mass/volume) 6.0 g/dL 6.4-8.2 Serum or plasma albumin measurement (mass/volume) 2.4 g/dL 3.2-4.5 CALCIUM CORRECTED 10.0 mg/dL 8.5-10.1 Encounters ACCT No. Visit Date/Time Discharge Status Pt. Type Provider Facility Loc./Unit Complaint [id number] 09/14/2018 12:55:00 09/17/2018 14:09:00 DIS Inpatient CHRISTIANE GUERRERO, CALLIE Bernal [facility] 4TH HYPONATREMIA, HYPOMAGNESEMIA, UTI [id number] 09/12/2018 14:32:00 09/12/2018 23:59:59 CLS Outpatient CHARLIE BURR DO [facility] ER CONFUSION / SOA / ABD PAIN [id number] 09/02/2018 11:58:00 09/02/2018 23:59:59 CLS Outpatient AMARILYS GUERRERO, TAE Bolden [facility] CARD ANTERIOR CHEST WALL PAIN [id number] 06/10/2018 11:26:00 06/10/2018 23:59:59 CLS Outpatient AMILCAR HAYDEN APRN [facility] RAD AF, OTHER ABNORMALITIES OF LUNG, COUGH [id number] 06/08/2018 10:25:00 06/08/2018 23:59:59 CLS Outpatient PADMAJA LEY [facility] CARD ANTERIOR CHEST WALL PAIN,HTN [id number] 05/13/2018 16:42:00 05/13/2018 23:59:59 CLS Preadmit AMILCAR HAYDEN [employer]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
== END 2018-09-17 14:09 | DRG 536 ==
LOC: EDUNIT# 21:53 → ER 21:54 → 4TH 21:55 → UNDOADMOB 09-14 01:20 → INTOOBSV 09-14 12:55 → OBSVTOIN 09-14 12:55 → 4TH 09-16 11:18 → UNDODISIN 09-17 14:09
PROVIDERS: ADMIT Family Medicine; ATTEND Family Medicine
DX: S72.111A Displaced fracture of greater trochanter of right femur, initial encounter for closed fracture (principal); S60.212A Contusion of left wrist, initial encounter; I48.0 Paroxysmal atrial fibrillation; E87.1 Hypo-osmolality and hyponatremia; Z68.41 Body mass index [BMI] 40.0-44.9, adult; N30.00 Acute cystitis without hematuria; I11.0 Hypertensive heart disease with heart failure; I50.32 Chronic diastolic (congestive) heart failure; Z66 Do not resuscitate; E66.9 Obesity, unspecified; F03.90 Unspecified dementia, unspecified severity, without behavioral disturbance, psychotic disturbance, mood disturbance, and anxiety; R41.3 Other amnesia; I45.10 Unspecified right bundle-branch block; T50.2X5A Adverse effect of carbonic-anhydrase inhibitors, benzothiadiazides and other diuretics, initial encounter; J44.9 Chronic obstructive pulmonary disease, unspecified; E83.42 Hypomagnesemia; R53.1 Weakness; E78.00 Pure hypercholesterolemia, unspecified; I69.998 Other sequelae following unspecified cerebrovascular disease; H53.2 Diplopia; H35.30 Unspecified macular degeneration; F41.9 Anxiety disorder, unspecified; F32.9 Major depressive disorder, single episode, unspecified; R01.1 Cardiac murmur, unspecified; W19.XXXA Unspecified fall, initial encounter; Y92.129 Unspecified place in nursing home as the place of occurrence of the external cause; Z98.1 Arthrodesis status; Z96.653 Presence of artificial knee joint, bilateral; Z79.01 Long term (current) use of anticoagulants
CPT/HCPCS: 36415; 70450; 71250; 72125; 73110; 73700; 80048; 80053; 81000; 83605; 83735; 83880; 84443; 84484; 85007; 85025; 85027; 87040; 87081; 93005; 93041; 93306; 94640; 94760; 94761; 96374; 96375

== ENCOUNTER 2019-09-14 12:14 | Emergency (ER) | payer MEDICARE, MEDICAID ==
[~2019-09-14] VITALS: Ht 165 cm; Wt 127.0 kg
[~2019-09-14 12:14] MED LIST changes: +ATOR40TA70 PO; -BUME2TAB3 PO; +BUME2TAB7 PO; +CYCL5TAB PO; +DILT120C88 PO; -DULO60CA58 PO; +DULO60CA59 PO; +FURO20TA4 PO; +FURO40TA4 PO; +LEVA15HF5 INH; +LORA10TA76 PO; +NYST15OI13 TOP; +ONDA-105 PO; -ONDA4TAB10 PO; +ONDA4TAB11 PO; +ROPI1TAB PO; -ROPI1TAB2 PO; +TAPE50TA2 PO
--- NOTE | 2019-09-14 12:28 | ED Fall/Injury ---
General Stated Complaint: FALL Source: patient (LIMITED HISTORIAN), EMS, senior care records History of Present Illness Date Seen by Provider: Sep 14, 2019 Time Seen by Provider: 12:14 Initial Comments PT ARRIVES VIA EMS FROM [facility]--HAS LEFT ARM IN SLING BY EMS, OTHERWISE NO IMMOBILIZATION WAS USING HER WALKER AND HER "LEGS GAVE OUT" (IS A CHRONIC PROBLEM) AND SHE FELL FORWARD, HITTING HER FOREHEAD ON A WOODEN TABLE AND HITTING AND LANDING ON HER LEFT SHOULDER NO LOSS OF CONSCIOUSNESS C/O PAIN TO HEAD, LEFT SHOULDER AND HER WHOLE BACK NO CHEST PAIN OR SHORTNESS OF BREATH NO HIP OR KNEE PAIN NO ABDOMINAL PAIN OR NAUSEA/VOMITING NO VISION CHANGES PT IS ON ELIQUIS FOR CHRONIC ATRIAL FIBRILLATION PCP: DR. LEE/ [facility] Allergies and Home Medications Allergies Coded Allergies: lisinopril (Verified Allergy, Unknown, 09/13/18) metolazone (Verified Allergy, Unknown, 09/13/18) oxycodone (Verified Allergy, Unknown, 09/13/18) tramadol (Verified Allergy, Unknown, 09/13/18) valdecoxib (Verified Allergy, Unknown, 09/13/18) codeine (Verified Adverse Reaction, Unknown, 09/13/18) fentanyl (Verified Adverse Reaction, Unknown, 09/13/18) hydrocodone (Verified Adverse Reaction, Unknown, 09/13/18) morphine (Verified Adverse Reaction, Unknown, 09/13/18) Home Medications Acetaminophen 500 Mg Tablet, 500-1,000 MG PO Q6H PRN for PAIN-MILD, (Reported) TAKES 1-2 (500MG) TABLETS Apixaban 5 Mg Tablet, 5 MG PO BID, (Reported) Atorvastatin Calcium 40 Mg Tablet, 40 MG PO HS, (Reported) Benzocaine 9 Gm Gel..gram., MM UD PRN for GUM PAIN, (Reported) Benzonatate 100 Mg Capsule, 100 MG PO TID PRN for COUGH, (Reported) Budesonide/Formoterol Fumarate 10.2 Gm Hfa.aer.ad, 2 PUFF INH BID, (Reported) Calcium Carbonate 300 Mg Tab.chew, 1-2 TAB.CHEW PO UD PRN for INDIGESTION, (Reported) Cefdinir 300 Mg Capsule, 300 MG PO BID Prescribed by: DORY LIN on 09/17/18 0947 Cyclobenzaprine HCl 5 Mg Tablet, 5 MG PO Q4H PRN for MUSCLE SPASMS, (Reported) Diltiazem HCl 120 Mg Cap.er.24h, 120 MG PO DAILY Prescribed by: RAJESH URRUTIA on 09/15/181140 Estrogens Conjugated 30 Gm Cr, 0.3 MG VG MoWeFr, (Reported) Furosemide 40 Mg Tablet, 40 MG PO DAILY Prescribed by: RAJESH URRUTIA on 09/15/181140 Furosemide 40 Mg Tablet, 40 MG PO DAILY Prescribed by: DORY LIN on 09/17/18946 Guaifenesin 1,200 Mg Tab.er.12h, 1,200 MG PO BID, (Reported) Isosorbide Mononitrate 30 Mg Tab.er.24h, 30 MG PO DAILY, (Reported) Levalbuterol Tartrate 15 Gm Hfa.aer.ad, 2 PUFF INH Q4H PRN for SHORTNESS OF BREATH, (Reported) Loratadine 10 Mg Tablet, 10 MG PO DAILY PRN for ITCHING, (Reported) Magnesium Oxide 400 Mg Tablet, 400 MG PO DAILY, (Reported) Menthol 5.8 Mg Lozenge, 1 LOZENGE MM UD PRN for COUGH, (Reported) Metoprolol Tartrate 25 Mg Tablet, 25 MG PO BID, (Reported) Nystatin 15 Gm Oint...g., 0 GM TOP BID Prescribed by: DORY LIN on 09/17/18946 Ondansetron 4 Mg Tab.rapdis, 4 MG PO Q4H PRN for NAUSEA/VOMITING-1ST LINE, (Reported) Ondansetron HCl 4 Mg Tablet, 4 MG PO Q6H PRN for NAUSEA/VOMITING-1ST LINE, (Reported) Potassium Chloride 20 Meq Tab.er.prt, 20 MEQ PO DAILY, (Reported) Sertraline HCl 50 Mg Tablet, 50 MG PO DAILY, (Reported) Spironolactone 25 Mg Tablet, 25 MG PO DAILY, (Reported) Tapentadol HCl 50 Mg Tablet, 50 MG PO Q6H PRN for PAIN UNRESOLVED BY TYLENOL Prescribed by: DORY LIN on 09/17/18946 [Dry Mouth Lozenge] , 1 LOZENGE MM UD PRN for DRY MOUTH, (Reported) [Magic Mouthwash] , 5-10 ML PO EVERY 6-8 HOURS PRN for SORE MOUTH, (Reported) SWISH AND SPIT Patient Home Medication List Home Medication List Reviewed: Yes Review of Systems Review of Systems Constitutional: no symptoms reported Eyes: No Symptoms Reported Ears, Nose, Mouth, Throat: no symptoms reported Respiratory: no symptoms reported Cardiovascular: no symptoms reported Gastrointestinal: no symptoms reported Genitourinary: no symptoms reported Musculoskeletal: see HPI Skin: other (SKIN TEAR TO LEFT FOREARM) Psychiatric/Neurological: See HPI, Headache; Denies Numbness, Denies Paresthesia Past Rhuxnwq-Ezydrq-Xaqgkx Hx Past Med/Social Hx: Reviewed and Corrections made Patient Social History Recent Hopitalizations: No Immunizations Up To Date Tetanus Booster (TDap): Unknown Date of Pneumonia Vaccine: Mar 24, 2018 Date of Influenza Vaccine: Apr 03, 2018 Seasonal Allergies Seasonal Allergies: No Past Medical History Surgeries: Yes Bladder Surgery, Cardiac, Eye Surgery, Joint Replacement, Orthopedic, Rectal Respiratory: Yes (O2 AT 3L/NC CONTINOUSLY) Sleep Apnea, COPD Currently Using CPAP: No Currently Using BIPAP: No Cardiac: Yes (CHF) Atrial Fibrillation, Chronic Edema/Swelling, Coronary Artery Disease, Heart Murmur, High Cholesterol, Hypertension Neurological: Yes (RESTLESS LEG SYNDROME) TIA JAIL OFFICER History: Menopausal Genitourinary: Yes (BLADDER REPAIR/CYSTOCOELE) Bladder Infection, Renal Failure, UTI-Chronic Gastrointestinal: Yes (RECTAL REPAIR/RECTOCOELE) Musculoskeletal: Yes (CERVICAL FUSION X2;tendon repair monik ankles;BILAT TKR;NECK PAIN) Degenerate Disk Disease, Osteoporosis, Arthritis, Chronic Back Pain Endocrine: Yes (MORBIDLY OBESE;HYPOMAGNESEMIA) Hypothyroidsim HEENT: Yes (double vision from TIA pt stated) Cataract, Macular Degeneration, Double Vision Cancer: No Psychosocial: Yes Anxiety, Depression Integumentary: No Blood Disorders: No Family Medical History No Pertinent Family Hx PSH: -BILATERAL TOTAL KNEE REPLACEMENTS -BILATERAL ANKLE TENDON REPAIRS -CERVICAL SPINE FUSION X 2 -CYSTOCOELE/RECTOCOELE REPAIR -BILATERAL CATARACT SURGERY Physical Exam Vital Signs Vital Signs - First Documented 09/14/19 12:16 Temp 36.3 Pulse 75 Resp 18 B/P (MAP) 135/93 (107) Pulse Ox 100 O2 Delivery Nasal Cannula O2 Flow Rate 3.00 Capillary Refill : Height, Weight, BMI Height: 5'5.00" Weight: 263lbs. 1.2oz. 119.453245ix; 43.8 BMI Method:Stated General Appearance: no apparent distress, obese (MORBIDLY OBESE, WITH MASSIVE LEGS--PT REFUSES TO WEAR LEG WRAPS), other (VOICE TREMULOUS, ) HEENT: PERRL/EOMI, other (NO EXTERNAL EVIDENCE OF TRAUMA TO FACE. ) Cardiovascular: regular rate, rhythm, no murmur Respiratory: chest non-tender, normal breath sounds Gastrointestinal: non tender, soft Back: other (DIFFUSE TENDERNESS TO BACK) Extremities: normal capillary refill, other (TENERNESS AND LIMITED ROM TO LEFT SHOULDER. NO HIP OR LEG TENDERNESS. HAS MINOR SKIN TEAR TO DORSAL ASPECT OF LEFT FOREARM--NO BLEEDING. 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, no motor/sensory deficits, alert, oriented x 3, other (ANXIOUS; SOME LIMITED MEMORY ?) Skin: normal color, warm/dry Yusef Coma Score Best Eye Response: (4) Open Spontaneously Best Verbal Response: (5) Oriented Best Motor Response: (6) Obeys Commands Yusef Total: 15 Procedures/Interventions Splinting and Joint Reduction : Chad wrap: Yes Arm Sling: Large (SLING AND SWATH/CHAD WRAP) Progress/Results/Core Measures Results/Orders Lab Results Laboratory Tests Test 09/14/19 12:30 Range/Units White Blood Count 11.0 4.3-11.0 10^3/uL Red Blood Count 4.66 4.35-5.85 10^6/uL Hemoglobin 13.3 11.5-16.0 G/DL Hematocrit 40 35-52 % Mean Corpuscular Volume 87 80-99 FL Mean Corpuscular Hemoglobin 29 25-34 PG Mean Corpuscular Hemoglobin Concent 33 32-36 G/DL Red Cell Distribution Width 18.1 H 10.0-14.5 % Platelet Count 174 130-400 10^3/uL Mean Platelet Volume 11.3 H 7.4-10.4 FL Neutrophils (%) (Auto) 41 L 42-75 % Lymphocytes (%) (Auto) 44 12-44 % Monocytes (%) (Auto) 15 H 0-12 % Eosinophils (%) (Auto) 1 0-10 % Basophils (%) (Auto) 0 0-10 % Neutrophils # (Auto) 4.5 1.8-7.8 X 10^3 Lymphocytes # (Auto) 4.8 H 1.0-4.0 X 10^3 Monocytes # (Auto) 1.6 H 0.0-1.0 X 10^3 Eosinophils # (Auto) 0.1 0.0-0.3 10^3/uL Basophils # (Auto) 0.0 0.0-0.1 10^3/uL Prothrombin Time 21.6 H 12.2-14.7 SEC INR Comment 1.8 H 0.8-1.4 Activated Partial Thromboplast Time 33 24-35 SEC Sodium Level 139 135-145 MMOL/L Potassium Level 4.0 3.6-5.0 MMOL/L Chloride Level 102 98-107 MMOL/L Carbon Dioxide Level 25 21-32 MMOL/L Anion Gap 12 5-14 MMOL/L Blood Urea Nitrogen 19 H 7-18 MG/DL Creatinine 1.73 H 0.60-1.30 MG/DL Estimat Glomerular Filtration Rate 28 BUN/Creatinine Ratio 11 Glucose Level 87 70-105 MG/DL Calcium Level 9.0 8.5-10.1 MG/DL Corrected Calcium 9.6 8.5-10.1 MG/DL Magnesium Level 2.3 1.6-2.4 MG/DL Total Bilirubin 0.7 0.1-1.0 MG/DL Aspartate Amino Transf (AST/SGOT) 28 5-34 U/L Alanine Aminotransferase (ALT/SGPT) 21 0-55 U/L Alkaline Phosphatase 86 40-136 U/L Total Protein 6.3 L 6.4-8.2 GM/DL Albumin 3.2 3.2-4.5 GM/DL My Orders Orders - CHARLIE BURR DO Ed Iv/Invasive Line Start (09/14/19 12:21) O2 (09/14/19 12:21) Monitor-Rhythm Ecg Trace Only (09/14/19 12:21) Ct Head/Face/Cervical Wo (09/14/19 12:21) Ct Thoracic/Lumbar Spine Wo (09/14/19 12:21) Chest 1 View, Ap/Pa Only (09/14/19 12:21) Shoulder, Left, 3 Views (09/14/19 12:21) Pelvis (09/14/19 12:21) Cbc With Automated Diff (09/14/19 12:21) Comprehensive Metabolic Panel (7/7/20 12:21) Magnesium (09/14/19 12:21) Protime With Inr (09/14/19 12:21) Partial Thromboplastin Time (09/14/19 12:21) Ed Ortho/Other Supplies Order (09/14/19 13:37) Acetaminophen Tablet (Tylenol Tablet) (09/14/19 14:15) Medications Given in ED Current Medications Medications Dose Ordered Sig/Teodora Route Start Time Stop Time Status Last Admin Dose Admin Acetaminophen 1,000 mg ONCE ONCE PO 09/14/19 14:15 09/14/19 14:16 DC 09/14/19 14:19 1,000 MG Vital Signs/I&O 09/14/19 09/14/19 09/14/19 12:16 12:16 14:33 Temp 36.3 Pulse 75 62 Resp 18 18 B/P (MAP) 135/93 (107) 113/83 Pulse Ox 100 100 97 O2 Delivery Nasal Cannula Nasal Cannula Room Air O2 Flow Rate 3.00 3.00 Progress Progress Note : Progress Note UNEVENTFUL ER STAY Diagnostic Imaging Comments CXR--PER RADIOLOGIST REPORT AT 1353 MPRESSION: 1: There is interval development of minimal left basilar atelectasis versus infiltrate. A small left pleural effusion cannot be excluded. 2: Stable cardiomegaly with no significant pulmonary vascular congestion. 3: Stable minimal atelectasis or scarring involving the right midlung field. LEFT SHOULDER XRAYS--PER RADIOLOGIST REPORT AT 1353 FINDINGS: There is a comminuted fracture of the left humeral head and neck with about 1 cm of displacement of the dominant fragments. There is no dislocation of glenohumeral joint. There is underlying degenerative change of the glenohumeral joint. AC joint appears unremarkable. IMPRESSION: Comminuted left humeral head and neck fracture as described above. PELVIS XRAYS--PER RADIOLOGIST REPROT AT 1353 MPRESSION: Degenerative findings. Questionable area of lucency over the greater trochanter of the right proximal femur which is of uncertain age. Consider CT if there is point tenderness in this area. CT HEAD/MAXILLOFACIALS / CERVICAL SPINE--PER RADIOLOGIST REPORT AT 1418 CT head: There appears to be minimal soft tissue swelling in the right frontal scalp. Ventricles and sulci are within normal limits. No sulcal effacement or midline shift is detected. No acute intra-axial or extra-axial hemorrhage is detected. Cisterns are patent. Visualized paranasal sinuses are clear. IMPRESSION: Right frontal scalp swelling. No acute intracranial process is detected. CT cervical spine: Postsurgical changes in the cervical spine are noted. There is anterior plate and screws transfixing the C4-C5 level. There is bilateral screws extending through C2. Hardware appears to be intact. No fractures are identified. Curvature and alignments are normal. There is degenerative disc disease with variable disc space narrowing. There appears to be osseous fusion throughout the cervical spine involving the facets. IMPRESSION: Chronic and postsurgical changes. No acute bony abnormality is detected. CT face: The mandible appears to be intact. Zygomatic arches are intact. Maxillary sinus priest, nasal bones and orbital priest are intact. Visualized paranasal sinuses appear to be clear. IMPRESSION: No facial bone fracture is detected. CT THORACIC/LUMBAR SPINE--PER RADIOLOGIST REPORT AT 1424 FINDINGS: Curvature and alignment is normal. Vertebral body heights are maintained. No fracture is seen. There is generalized degenerative disc disease with disc space narrowing and marginal spurring. Aorta is heavily calcified. Paraspinous tissues are unremarkable. IMPRESSION: Lumbar spondylosis. No acute bony abnormality is detected. Reviewed: Reviewed by Me Departure Impression Primary Impression: S/P FALL FROM STANDING Additional Impressions: Closed left humeral fracture Generalized weakness Disposition: 03 XFER SNF Condition: Stable Departure-Patient Inst. Referrals: RAMIRO LEE MD (PCP/Family) Primary Care Physician YANDY MUNIZ MD Patient Instructions: Generalized Weakness (DC), Preventing Falls in the Older Adult, Shoulder Fracture (DC), Upper Arm Fracture Add. Discharge Instructions: WEAR SLING AND SWATH AT ALL TIMES ICE TO AREA AT 20 MINUTE INTERVALS CONTINUE YOUR CURRENT MEDICATIONS PRESCRIBED, INCLUDING NUCYNTA FOR PAIN FOLLOW UP WITH DR. MUNIZ THIS WEEK FOR FURTHER CARE OF YOUR ARM FRACTURE--CALL TODAY TO SCHEDULE AN APPOINTMENT CHARLIE BURR DO Sep 14, 2019 12:28
[2019-09-14 12:36] LABS: BASOPHILS % (AUTO) 0 % (0-10); EOSINOPHILS # (AUTO) 0.1 10^3/uL (0.0-0.3); EOSINOPHILS % (AUTO) 1 % (0-10); HEMATOCRIT 40 % (35-52); HEMOGLOBIN 13.3 G/DL (11.5-16.0); LYMPHOCYTES # (AUTO) 4.8 X 10^3 (1.0-4.0); LYMPHOCYTES % (AUTO) 44 % (12-44); MEAN CORPUSCULAR HEMOGLOBIN 29 PG (25-34); MEAN CORPUSCULAR HGB CONC 33 G/DL (32-36); MEAN CORPUSCULAR VOLUME 87 FL (80-99); MEAN PLATELET VOLUME 11.3 FL (7.4-10.4); MONOCYTES # (AUTO) 1.6 X 10^3 (0.0-1.0); MONOCYTES % (AUTO) 15 % (0-12); NEUTROPHILS # (AUTO) 4.5 X 10^3 (1.8-7.8); NEUTROPHILS % (AUTO) 41 % (42-75); PLATELET COUNT 174 10^3/uL (130-400); RED CELL DISTRIBUTION WIDTH 18.1 % (10.0-14.5)
[2019-09-14 12:44] LABS: ALBUMIN 3.2 GM/DL (3.2-4.5)
[2019-09-14 12:47] LABS: INR 1.8 (0.8-1.4); PROTHROMBIN TIME PATIENT 21.6 SEC (12.2-14.7); TOTAL PROTEIN 6.3 GM/DL (6.4-8.2)
[2019-09-14 12:49] LABS: BILIRUBIN,TOTAL 0.7 MG/DL (0.1-1.0)
[2019-09-14 12:51] LABS: CREATININE SERUM 1.73 MG/DL (0.60-1.30)
[2019-09-14 12:53] LABS: MAGNESIUM 2.3 MG/DL (1.6-2.4)
--- NOTE | 2019-09-14 13:08 | NUR ---
resumed care of pt after receiving report from Calista Clark
--- NOTE | 2019-09-14 13:41 | Diagnostic Imaging Report ---
INDICATION: Fall with left shoulder pain. AP, oblique, and transscapular views of left shoulder are obtained at 01:29 p.m. FINDINGS: There is a comminuted fracture of the left humeral head and neck with about 1 cm of displacement of the dominant fragments. There is no dislocation of glenohumeral joint. There is underlying degenerative change of the glenohumeral joint. AC joint appears unremarkable. IMPRESSION: Comminuted left humeral head and neck fracture as described above. Dictated by: Dictated on workstation # [id number]
--- NOTE | 2019-09-14 13:43 | Diagnostic Imaging Report ---
INDICATION: Fall with pelvic pain. AP pelvis obtained at 01:28 p.m. FINDINGS: There is some lucency over the greater trochanter of the proximal femur on the right side, this is of unclear age. There are degenerative findings of both hips as well as pubic symphysis. There is degenerative change of the SI joints. No other abnormality is seen. IMPRESSION: Degenerative findings. Questionable area of lucency over the greater trochanter of the right proximal femur which is of uncertain age. Consider CT if there is point tenderness in this area. Dictated by: Dictated on workstation # [id number]
--- NOTE | 2019-09-14 13:46 | Diagnostic Imaging Report ---
CLINICAL INDICATION: Patient is status post fall. EXAM: Portable chest x-ray upright view. COMPARISONS: Chest x-ray dated 09/12/2018. FINDINGS: There is interval development of mild left basilar atelectasis versus infiltrate. The left costophrenic angle is obscured and a small left pleural effusion cannot be completely excluded. Stable discoid atelectasis or scarring in the right midlung field. Remainder of the lungs are clear. Stable cardiomegaly with no significant pulmonary vascular congestion. There is hypertrophic spurs involving the thoracic spine. There is no pneumothorax. Anterior cervical disc fusion of the lower cervical spine is noted. IMPRESSION: 1: There is interval development of minimal left basilar atelectasis versus infiltrate. A small left pleural effusion cannot be excluded. 2: Stable cardiomegaly with no significant pulmonary vascular congestion. 3: Stable minimal atelectasis or scarring involving the right midlung field. Dictated by: Dictated on workstation # [id number]
[2019-09-14] MEDS ORDERED: ACETAMINOPHEN 500 MG TAB (TYLENOL) PO ONE (14:15)
--- NOTE | 2019-09-14 14:16 | Diagnostic Imaging Report ---
PROCEDURE: CT head, face, and cervical spine without contrast. TECHNIQUE: Multiple contiguous axial images were obtained through the head, neck, and facial bones without the use of intravenous contrast. Sagittal and coronal reformations through the cervical spine and facial bones were also performed. Auto Exposure Controls were utilized during the CT exam to meet ALARA standards for radiation dose reduction. INDICATION: Fall. COMPARISON: Comparison is made with prior CT from 09/13/2018. FINDINGS: CT head: There appears to be minimal soft tissue swelling in the right frontal scalp. Ventricles and sulci are within normal limits. No sulcal effacement or midline shift is detected. No acute intra-axial or extra-axial hemorrhage is detected. Cisterns are patent. Visualized paranasal sinuses are clear. IMPRESSION: Right frontal scalp swelling. No acute intracranial process is detected. CT cervical spine: Postsurgical changes in the cervical spine are noted. There is anterior plate and screws transfixing the C4-C5 level. There is bilateral screws extending through C2. Hardware appears to be intact. No fractures are identified. Curvature and alignments are normal. There is degenerative disc disease with variable disc space narrowing. There appears to be osseous fusion throughout the cervical spine involving the facets. IMPRESSION: Chronic and postsurgical changes. No acute bony abnormality is detected. CT face: The mandible appears to be intact. Zygomatic arches are intact. Maxillary sinus priest, nasal bones and orbital priest are intact. Visualized paranasal sinuses appear to be clear. IMPRESSION: No facial bone fracture is detected. Dictated by: Dictated on workstation # [id number]
--- NOTE | 2019-09-14 14:21 | Diagnostic Imaging Report ---
PROCEDURE: CT thoracic and lumbar spine without contrast. TECHNIQUE: Multiple contiguous axial images were obtained through the thoracic and lumbar spine without the use of intravenous contrast. Sagittal and coronal reformations were then performed. All CT scans use one or more of the following dose optimizing techniques: automated exposure control, MA and/or KvP adjustment based on a patient size and exam type, or iterative reconstruction. INDICATION: Fall and back pain. FINDINGS: CT THORACIC SPINE: Curvature and alignment of the thoracic spine is normal. Vertebral body heights are maintained. No acute compression fracture is detected. There is multilevel thoracic spondylosis with variable disc space narrowing and marginal spurring. No paraspinous hematoma is detected. Slight nodular density in the posterior right upper lobe is seen, indeterminate but appears to have been present on study from one year earlier. IMPRESSION: Thoracic spondylosis. No acute bony abnormality is detected. CT LUMBAR SPINE: Curvature and alignment is normal. Vertebral body heights are maintained. No fracture is seen. There is generalized degenerative disc disease with disc space narrowing and marginal spurring. Aorta is heavily calcified. Paraspinous tissues are unremarkable. IMPRESSION: Lumbar spondylosis. No acute bony abnormality is detected. Dictated by: Dictated on workstation # [id number]
--- NOTE | 2019-09-14 14:30 | NUR ---
spoke with pt daughter at this time and updated her on pt status
[2019-09-14 14:33] VITALS: BP 113/83
--- OUTSIDE RECORDS SUMMARY | 2019-09-14 15:52 | XMS REPORT | Continuity of Care Document ---
Author Organization Unknown Address Unknown Phone Unavailable Allergies Active Description Code Type Severity Reaction Onset Reported/Identified Relationship to Patient Clinical Status Yes codeine [id number] Drug Allergy Unknown N/A 09/13/2018 Yes fentanyl [id number] Drug Allergy Unknown N/A 09/13/2018 Yes hydrocodone [id number] Drug Aller gy Unknown N/A 09/13/2018 Yes lisinopril [id number] Drug Allerg y Unknown N/A 09/13/2018 Yes metolazone [id number] Drug Allerg y Unknown N/A 09/13/2018 Yes morphine [id number] Drug Allergy Unknown N/A 09/13/2018 Yes oxycodone [id number] Drug Allergy Unknown N/A 09/13/2018 Yes tramadol [id number] Drug Allergy Unknown N/A 09/13/2018 Yes valdecoxib [id number] Drug Allerg y Unknown N/A 09/13/2018 Medications There is no data. Problems Date Dx Coded Attending Type Code Diagnosis Diagnosed By 04/17/2018 DORY LIN DO, Ot E78.5 HYPERLIPIDEMIA, UNSPECIFIED 04/17/2018 DORY LIN DO Ot F32.9 MAJOR DEPRESSIVE DISORDER, SINGLE EPISOD 04/17/2018 DORY LIN DO Ot F41.9 ANXIETY DISORDER, UNSPECIFIED 04/17/2018 DORY LIN DO Ot I10 ESSENTIAL (PRIMARY) HYPERTENSION 04/17/2018 DROY LIN DO Ot I24.9 ACUTE ISCHEMIC HEART [...] STATUS TO NARCOTIC AGENT STATUS 04/17/2018 LIN DO, DORY Ot Z88.8 ALLERGY STATUS TO OTH DRUG/MEDS/BIOL SUB 05/13/2018 AMILCAR HAYDEN SENIOR BENEFITS MANAGER Ot R05 COUGH 05/13/2018 AMILCAR HAYDEN SENIOR BENEFITS MANAGER Ot R06.89 OTHER ABNORMALITIES OF BREATHING 05/19/2018 AMILCAR HAYDEN SENIOR BENEFITS MANAGER Ot R05 COUGH 05/19/2018 AMILCAR HAYDEN SENIOR BENEFITS MANAGER Ot R06.89 OTHER ABNORMALITIES OF BREATHING 06/03/2018 AMILCAR HAYDEN SENIOR BENEFITS MANAGER Ot R05 COUGH 06/03/2018 AMILCAR HAYDEN SENIOR BENEFITS MANAGER Ot R06.89 OTHER ABNORMALITIES OF BREATHING 06/10/2018 PADMAJA LEY Ot I10 ESSENTIAL (PRIMARY) HYPERTENSION 06/10/2018 PADMAJA LEY Ot I48.0 PAROXYSMAL ATRIAL FIBRILLATION 06/10/2018 PADMAJA LEY Ot R06.00 DYSPNEA, UNSPECIFIED 06/10/2018 PADMAJA LEY Ot R07.89 OTHER CHEST PAIN 06/22/2018 AMILCAR HAYDEN SENIOR BENEFITS MANAGER Ot R05 COUGH 06/22/2018 AMILCAR HAYDEN SENIOR BENEFITS MANAGER Ot R06.89 OTHER ABNORMALITIES OF BREATHING 06/22/2018 AMILCAR HAYDEN SENIOR BENEFITS MANAGER Ot G47.10 HYPERSOMNIA, UNSPECIFIED 06/22/2018 AMILCAR HAYDEN E SENIOR BENEFITS MANAGER Ot G47.50 PARASOMNIA, UNSPECIFIED 06/22/2018 JACKELYN, AMILCAR E SENIOR BENEFITS MANAGER Ot I48.91 UNSPECIFIED ATRIAL FIBRILLATION 06/22/2018 AMILCAR HAYDEN E SENIOR BENEFITS MANAGER Ot 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 06/22/2018 [...] R07.89 OTHER CHEST PAIN 07/03/2018 AMILCAR HAYDEN SENIOR BENEFITS MANAGER Ot G47.10 HYPERSOMNIA, UNSPECIFIED 07/03/2018 JACKELYN, AMILCAR E SENIOR BENEFITS MANAGER Ot G47.50 PARASOMNIA, UNSPECIFIED 07/03/2018 BO HAYDENINE E SENIOR BENEFITS MANAGER Ot I48.91 UNSPECIFIED ATRIAL FIBRILLATION 07/03/2018 BO HAYDENINE E SENIOR BENEFITS MANAGER Ot 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 07/20/2018 CHITO PA, PADMAJA K Ot I10 ESSENTIAL (PRIMARY) HYPERTENSION 07/20/2018 CHITO PA, PADMAJA K Ot I48.0 PAROXYSMAL ATRIAL FIBRILLATION 07/20/2018 CHITO PA, PADMAJA K Ot R06.00 DYSPNEA, UNSPECIFIED 07/20/2018 CHITO PA, PADMAJA K Ot R07.89 OTHER CHEST PAIN 09/04/2018 AMARILYS GUERRERO, TAE Bolden Ot E78. 2 MIXED HYPERLIPIDEMIA 09/04/2018 AMARILYS GUERRERO, TAE Bolden Ot G45. 9 TRANSIENT CEREBRAL ISCHEMIC ATTACK, UNSP 09/04/2018 AMARILYS GUERRERO, TAE Bolden Ot I10 ESSENTIAL (PRIMARY) HYPERTENSION 09/04/2018 AMARILYS GUERRERO, TAE Bolden Ot R06. 00 DYSPNEA, UNSPECIFIED 09/04/2018 AMARILYS GUERRERO, TAE Bolden Ot R07. 89 OTHER CHEST PAIN 09/12/2018 LENO CHARLIE Raul Ot E78.00 PURE HYPERCHOLESTEROLEMIA, UNSPECIFIED 09/12/2018 LENO DO, CHARLIE K Ot F32.9 MAJOR DEPRESSIVE DISORDER, SINGLE EPISOD 09/12/2018 LENO DO, CHARLIE K Ot F41.9 ANXIETY DISORDER, UNSPECIFIED 09/12/2018 LENO DO, CHARLIE K Ot I11.0 HYPERTENSIVE HEART DISEASE WITH HEART FA 09/12/2018 LENO DO, CHARLIE K Ot I48.91 UNSPECIFIED ATRIAL FIBRILLATION 09/12/2018 LENO DO, CHARLIE K Ot I50.9 HEART FAILURE, UNSPECIFIED 09/12/2018 LENO DO, CHARLIE K Ot N39.0 URINARY TRACT INFECTION, SITE NOT SPECIF 09/12/2018 LENO DO CHARLIE K Ot R30.0 DYSURIA 09/12/2018 LENO CHARLIE K Ot Z86.73 PRSNL HX OF TIA (TIA), AND CEREB INFRC W 09/12/2018 LENO SOLA K Ot Z88.5 ALLERGY STATUS TO NARCOTIC AGENT STATUS 09/12/2018 LENO CHARLIE K Ot Z88.8 ALLERGY STATUS TO OTH DRUG/MEDS/BIOL SUB 09/12/2018 LENO BERNAL CHARLIE K Ot Z96.653 PRESENCE OF ARTIFICIAL KNEE JOINT, BILAT 09/12/2018 LENO BERNAL CHARLIE K Ot Z98.1 ARTHRODESIS STATUS 09/17/2018 LENO CHARLIE K Ot E78.00 PURE HYPERCHOLESTEROLEMIA, UNSPECIFIED 09/17/2018 LENO DO, CHARLIE K Ot F32.9 MAJOR DEPRESSIVE DISORDER, SINGLE EPISOD 09/17/2018 LENO DO, CHARLIE K Ot F41.9 ANXIETY DISORDER, UNSPECIFIED 09/17/2018 LENO DO, CHARLIE K Ot I11.0 HYPERTENSIVE HEART DISEASE WITH HEART FA 09/17/2018 LENO DO, CHARLIE K Ot I48.91 UNSPECIFIED ATRIAL FIBRILLATION 09/17/2018 LENO DO, CHARLIE K Ot I50.9 HEART FAILURE, UNSPECIFIED 09/17/2018 LENO DO, CHARLIE K Ot N39.0 URINARY TRACT INFECTION, SITE NOT SPECIF 09/17/2018 CHARLIE BURR DO Ot R30.0 DYSURIA 09/17/2018 LENO BERNAL CHARLIE Carter Ot Z86.73 PRSNL HX OF TIA (TIA), AND CEREB INFRC W 09/17/2018 LENO BERNAL CHARLIE Raul Ot Z88.5 ALLERGY STATUS TO NARCOTIC AGENT STATUS 09/17/2018 LENO BERNAL CHARLIE Raul Ot Z88.8 ALLERGY STATUS TO OTH DRUG/MEDS/BIOL SUB 09/17/2018 LENO BERNALSOLA Raul Ot 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 9 OBESITY, UNSPECIFIED 09/17/2018 CALLIE GRANDE MD Ot E78. 00 PURE HYPERCHOLESTEROLEMIA, UNSPECIFIED 09/17/2018 CALLIE GRANDE MD Ot E83. 42 HYPOMAGNESEMIA 09/17/2018 CALLIE GRANDE MD Ot E87. 1 HYPO-OSMOLALITY AND HYPONATREMIA 09/17/2018 CALLIE GRANDE MD Ot F03. 90 UNSPECIFIED DEMENTIA WITHOUT BEHAVIORAL 09/17/2018 CALLIE GRANDE MD Ot F32. 9 MAJOR DEPRESSIVE DISORDER, SINGLE EPISOD 09/17/2018 CALLIE GRANDE MD Ot F41. 9 ANXIETY DISORDER, UNSPECIFIED 09/17/2018 CALLIE GRANDE MD Ot H35. 30 UNSPECIFIED MACULAR DEGENERATION 09/17/2018 CALLIE GRANDE MD Ot H53. 2 DIPLOPIA 09/17/2018 CALLIE GRANDE MD Ot I11. 0 HYPERTENSIVE HEART DISEASE WITH HEART FA 09/17/2018 CALLIE GRANDE MD Ot I45. 10 UNSPECIFIED RIGHT BUNDLE-BRANCH BLOCK 09/17/2018 CALLIE GRANDE MD Ot I48. 0 PAROXYSMAL ATRIAL FIBRILLATION 09/17/2018 CALLIE GRANDE MD Ot I50. 32 CHRONIC DIASTOLIC (CONGESTIVE) HEART DANIA 09/17/2018 CALLIE GRANDE MD Ot I50. 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 9 CHRONIC OBSTRUCTIVE PULMONARY DISEASE, U 09/17/2018 CALLIE GRANDE MD, Ot N30. 00 ACUTE CYSTITIS WITHOUT HEMATURIA 09/17/2018 CALLIE GRANDE MD, Ot R01. 1 CARDIAC MURMUR, UNSPECIFIED 09/17/2018 CALLIE GRANDE MD, Ot R41. 3 OTHER AMNESIA 09/17/2018 CALLIE GRANDE MD, Ot R53. 1 WEAKNESS 09/17/2018 CALLIE GRANDE MD, Ot S60.212A CONTUSION OF LEFT WRIST, INITIAL ENCOUNT 09/17/2018 CALLIE GRANDE MD, Ot S72.111A DISP FX OF GREATER TROCHANTER OF RIGHT F 09/17/2018 CALLIE GRANDE MD, Ot T50.2X5A ADVRS EFF OF CRBNC-ANHYDR INHIBTR, BENZO 09/17/2018 CALLIE GRANDE MD, Ot W19.XXXA UNSPECIFIED FALL, INITIAL ENCOUNTER 09/17/2018 CALLIE GRANDE MD, Ot Y92.[address] IN SHELTER PLACE 09/17/2018 CALLIE GRANDE MD Ot Z66 DO NOT RESUSCITATE 09/17/2018 CALLIE GRANDE MD, Ot Z68. 41 BODY MASS INDEX (BMI) 40.0-44.9, ADULT 09/17/2018 CALLIE GRANDE MD, Ot Z79. 01 [facility]CI (CURRENT) USE OF ANTICOAGULANT 09/17/2018 CALLIE GRANDE MD Ot Z96.653 PRESENCE OF ARTIFICIAL KNEE JOINT, BILAT 09/17/2018 CALLIE GRANDE MD Ot Z98. 1 ARTHRODESIS STATUS 09/18/2018 CALLIE GRANDE MD, Ot E66. 9 OBESITY, UNSPECIFIED 09/18/2018 CALLIE GRANDE MD Ot E78. 00 PURE HYPERCHOLESTEROLEMIA, UNSPECIFIED 09/18/2018 CALLIE GRANDE MD, Ot E83. 42 HYPOMAGNESEMIA 09/18/2018 CALLIE GRANDE MD, Ot E87. 1 HYPO-OSMOLALITY AND HYPONATREMIA 09/18/2018 CALLIE GRANDE MD Ot F03. 90 UNSPECIFIED DEMENTIA WITHOUT BEHAVIORAL 09/18/2018 CALLIE GRANDE MD, Ot F32. 9 MAJOR DEPRESSIVE DISORDER, SINGLE EPISOD 09/18/2018 CALLIE GRANDE MD, Ot F41. 9 ANXIETY DISORDER, UNSPECIFIED 09/18/2018 CALLIE GRANDE MD, Ot H35. 30 UNSPECIFIED MACULAR DEGENERATION 09/18/2018 CALLIE GRANDE MD, Ot H53. 2 DIPLOPIA 09/18/2018 CALLIE GRANDE MD, Ot I11. 0 HYPERTENSIVE HEART DISEASE WITH HEART FA 09/18/2018 CALLIE GRANDE MD, Ot I45. 10 UNSPECIFIED RIGHT BUNDLE-BRANCH BLOCK 09/18/2018 CALLIE GRANDE MD, Ot I48. 0 PAROXYSMAL ATRIAL FIBRILLATION 09/18/2018 CALLIE GRANDE MD, Ot I50. 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 9 CHRONIC OBSTRUCTIVE PULMONARY DISEASE, U 09/18/2018 CALLIE GRANDE MD, Ot N30. 00 ACUTE CYSTITIS WITHOUT HEMATURIA 09/18/2018 CALLIE GRANDE MD, Ot R01. 1 CARDIAC MURMUR, UNSPECIFIED 09/18/2018 CALLIE GRANDE MD, Ot R41. 3 OTHER AMNESIA 09/18/2018 CALLIE GRANDE MD, Ot R53. 1 WEAKNESS 09/18/2018 CALLIE GRANDE MD, Ot S60.212A CONTUSION OF LEFT WRIST, INITIAL ENCOUNT 09/18/2018 CALLIE GRANDE MD, Ot S72.111A DISP FX OF GREATER TROCHANTER OF RIGHT F 09/18/2018 CALLIE GRANDE MD, Ot T50.2X5A ADVRS EFF OF CRBNC-ANHYDR INHIBTR, BENZO 09/18/2018 CALLIE GRANDE MD, Ot W19.XXXA UNSPECIFIED FALL, INITIAL ENCOUNTER 09/18/2018 CALLIE GRANDE MD Ot Y92.[address] IN SHELTER PLACE 09/18/2018 CALLIE GRANDE MD, Ot Z66 DO NOT RESUSCITATE 09/18/2018 CALLIE GRANDE MD, Ot Z68. 41 BODY MASS INDEX (BMI) 40.0-44.9, ADULT 09/18/2018 CALLIE GRANDE MD Ot Z79. 01 FCI (CURRENT) USE OF ANTICOAGULANT 09/18/2018 CALLIE GRANDE MD Ot Z96.653 PRESENCE OF ARTIFICIAL KNEE JOINT, BILAT 09/18/2018 CALLIE GRANDE MD Ot Z98. 1 ARTHRODESIS STATUS 09/18/2018 CALLIE GRANDE MD Ot E66. 9 OBESITY, UNSPECIFIED 09/18/2018 CALLIE GRANDE MD Ot E78. 00 PURE HYPERCHOLESTEROLEMIA, UNSPECIFIED 09/18/2018 CALLIE GRANDE MD Ot E83. 42 HYPOMAGNESEMIA 09/18/2018 CALLIE GRANDE MD Ot E87. 1 HYPO-OSMOLALITY AND HYPONATREMIA 09/18/2018 CALLIE GRANDE MD Ot F03. 90 UNSPECIFIED DEMENTIA WITHOUT BEHAVIORAL 09/18/2018 CALLIE GRANDE MD Ot F32. 9 MAJOR DEPRESSIVE DISORDER, SINGLE EPISOD 09/18/2018 CALLIE GRANDE MD Ot F41. 9 ANXIETY DISORDER, UNSPECIFIED 09/18/2018 CALLIE GRANDE MD Ot H35. 30 UNSPECIFIED MACULAR DEGENERATION 09/18/2018 CALLIE GRANDE MD Ot H53. 2 DIPLOPIA 09/18/2018 CALLIE GRANDE MD Ot I11. 0 HYPERTENSIVE HEART DISEASE WITH HEART FA 09/18/2018 CALLIE GRANDE MD Ot I45. 10 UNSPECIFIED RIGHT BUNDLE-BRANCH BLOCK 09/18/2018 CALLIE GRANDE MD Ot I48. 0 PAROXYSMAL ATRIAL FIBRILLATION 09/18/2018 CALLIE GRANDE MD Ot I50. 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 9 CHRONIC OBSTRUCTIVE PULMONARY DISEASE, U 09/18/2018 CALLIE GRANDE MD Ot N30. 00 ACUTE CYSTITIS WITHOUT HEMATURIA 09/18/2018 CALLIE GRANDE MD Ot R01. 1 CARDIAC MURMUR, UNSPECIFIED 09/18/2018 CALLIE GRANDE MD Ot R41. 3 OTHER AMNESIA 09/18/2018 CALLIE GRANDE MD, Ot R53. 1 WEAKNESS 09/18/2018 CALLIE GRANDE MD, Ot S60.212A CONTUSION OF LEFT WRIST, INITIAL ENCOUNT 09/18/2018 CALLIE GRANDE MD, Ot S72.111A DISP FX OF GREATER TROCHANTER OF RIGHT F 09/18/2018 CALLIE GRANDE MD, Ot T50.2X5A ADVRS EFF OF CRBNC-ANHYDR INHIBTR, BENZO 09/18/2018 CALLIE GRANDE MD, Ot W19.XXXA UNSPECIFIED FALL, INITIAL ENCOUNTER 09/18/2018 CALLIE GRANDE MD, Ot Y92.[address] SHELTER PLACE 09/18/2018 CALLIE GRANDE MD, Ot Z66 DO NOT RESUSCITATE 09/18/2018 CALLIE GRANDE MD, Ot Z68. 41 BODY MASS INDEX (BMI) 40.0-44.9, ADULT 09/18/2018 CALLIE GRANDE MD, Ot Z79. 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 9 TRANSIENT CEREBRAL ISCHEMIC ATTACK, UNSP 02/08/2019 TAE PANDA MD Ot I10 ESSENTIAL (PRIMARY) HYPERTENSION 02/08/2019 TAE PANDA MD Ot R06. 00 DYSPNEA, UNSPECIFIED 02/08/2019 TAE PANDA MD Ot R07. 89 OTHER CHEST PAIN 02/08/2019 RAMIRO LEE MD Ot Z01.8 9 ENCOUNTER FOR OTHER SPECIFIED SPECIAL EX 02/08/2019 RAMIRO LEE MD Ot Z01.8 9 ENCOUNTER FOR OTHER SPECIFIED SPECIAL EX 02/08/2019 RAMIRO LEE MD Ot Z01.8 9 ENCOUNTER FOR OTHER SPECIFIED SPECIAL EX 02/08/2019 RAMIRO LEE MD Ot Z01.8 9 ENCOUNTER FOR OTHER SPECIFIED SPECIAL EX 03/05/2019 RAMIRO LEE MD, Ot Z01.8 9 ENCOUNTER FOR OTHER SPECIFIED SPECIAL EX Procedures There is no data. Results Test Result Range Complete blood count (CBC) with automate d white blood cell (WBC) differential - 04/16/18 22:39 Blood leukocytes automated count (number/volume) 12.8 10*3/uL 4.3-11.0 Blood erythrocytes automated count (number/volume) 4.37 10*6/uL 4.35-5.85 Venous blood hemoglobin measurement (mass/volume) 13.3 g/dL 11.5-16.0 Blood hematocrit (volume fraction) 40 % 35-52 Automated erythrocyte mean corpuscular volume 90 [ foz_us] 80-99 Automated erythrocyte mean corpuscular h emoglobin (mass per erythrocyte) 30 pg 25-34 Automated erythrocyte mean corpuscular h emoglobin concentration measurement (mass/volume) 34 g/dL 32-36 Automated erythrocyte distribution width ratio 18. 0 % 10.0- 14.5 Automated blood platelet count [...] 10*3 1.0-4.0 Blood monocytes automated count (number/volume) 1. 3 10*3 0.0-1.0 Automated eosinophil count 0.0 10*3/uL 0 .0-0.3 Automated blood basophil count (count/volume) 0.0 10*3/uL 0.0-0.1 PT panel in platelet poor plasma by coag ulation assay - 04/17/18 02:24 Prothrombin time (PT) in platelet poor plasma by coagu lation assay 15.9 s 12.2-14.7 INR in platelet poor plasma or blood by coagulation as say 1.3 0.8-1.4 Activated partial thromboplastin time (a PTT) in platelet poor plasma bycoagulation assay - 04/17/18 02:24 Activated partial thromboplastin time (a PTT) in platelet poor plasma bycoagulation assay 26 s 24-35 Comprehensive metabolic panel - 04/17/18 02:24 Serum or plasma sodium measurement (moles/volume) 142 mmol/L 135-145 Serum or plasma potassium measurement (moles/volume) 3.3 mmol/L 3.6-5.0 Serum or plasma chloride measurement (moles/volume) 96 mmol/L 98-107 Carbon dioxide 32 mmol/L 21-32 Serum or plasma anion gap determination (moles/volume) 14 mmol/L 5-14 Serum or plasma urea nitrogen measurement (mass/volume ) 27 mg/dL 7-18 Serum or plasma creatinine measurement (mass/volume) 1.04 mg/dL 0.60-1.30 Serum or plasma urea nitrogen/creatinine mass ratio 26 NRG Serum or plasma creatinine measurement w ith calculation of estimated glomerular filtration rate 51 NRG Serum or plasma glucose measurement (mass/volume) 112 mg/dL 70-105 Serum or plasma calcium measurement (mass/volume) 8.7 mg/dL 8.5-10.1 Serum or plasma total bilirubin measurement (mass/volu me) 0.7 mg/dL 0.1-1.0 Serum or plasma alkaline phosphatase mesha surement (enzymatic activity/volume) 84 U/L 40-136 Serum or plasma aspartate aminotransfera se measurement (enzymatic activity/volume) 36 U/L 5-34 Serum or plasma alanine aminotransferase measurement (enzymatic activity/volume) 35 U/L 0-55 Serum or plasma protein measurement (mass/volume) 6.0 g/dL 6.4-8.2 Serum or plasma albumin measurement (mass/volume) 3.1 g/dL 3.2-4.5 CALCIUM CORRECTED 9.4 mg/dL 8.5-10.1 Magnesium - 04/17/18 02:24 Magnesium 2.0 mg/dL 1.8-2.4 Serum or plasma troponin i.cardiac measu rement (mass/volume) - 04/17/18 02:24 Serum or plasma troponin i.cardiac measurement (mass/v olume) 0.044 ng/mL <0.028 Myoglobin, serum - 04/17/18 02:24 Myoglobin, serum 66.7 ng/mL 10.0-92.0 Lipase - 04/17/18 02:24 Lipase 50 U/L 8-78 Serum or plasma lithium measurement (mol es/volume) - 04/17/18 02:24 BNP level 101.6 pg/mL <100.0 Serum or plasma troponin i.cardiac measu rement (mass/volume) - 04/17/18 12:15 Serum or plasma troponin i.cardiac measurement (mass/v olume) 0.044 ng/mL <0.028 Arterial blood gas measurement - 9 15:18 Blood pCO2 43 mm[Hg] 35-45 Blood pO2 71 mm[Hg] 79-93 Arterial blood bicarbonate measurement (moles/volume) 33 mmol/L 23-27 Arterial blood base excess by calculation 8.9 mmol /L -2.5-2.5 Arterial blood oxygen saturation measurement 95 % 94-100 * Inhaled oxygen flow rate ROOM AIR NRG Arterial blood pH measurement with patient temperature correction 7.49 7.37-7.43 Arterial blood carbon dioxide, total measurement (mole s/volume) 34.0 mmol/L 21.0-31.0 Body site LEFT RADIAL NRG Assessment of wrist artery patency prior to arterial p uncture POSITIVE NRG Setting of ventilation mode NO NR G Measurement of body temperature 98.7 NRG Complete blood count (CBC) with automate d white blood cell (WBC) differential - 09/12/18 15:05 Blood leukocytes automated count (number/volume) 5.9 10*3/uL 4.3-11.0 Blood erythrocytes automated count (number/volume) 4.31 10*6/uL 4.35-5.85 Venous blood hemoglobin measurement (mass/volume) 12.1 g/dL 11.5-16.0 Blood hematocrit (volume fraction) 36 % 35-52 Automated erythrocyte mean corpuscular volume 84 [ foz_us] 80-99 Automated erythrocyte mean corpuscular h emoglobin (mass per erythrocyte) 28 pg 25-34 Automated erythrocyte mean corpuscular h emoglobin concentration measurement (mass/volume) 34 g/dL 32-36 Automated erythrocyte distribution width ratio 14. 3 % 10.0- 14.5 Automated blood platelet count [...] 10*3 1.0-4.0 Blood monocytes automated count (number/volume) 1. 2 10*3 0.0-1.0 Automated eosinophil count 0.0 10*3/uL 0 .0-0.3 Automated blood basophil count (count/volume) 0.0 10*3/uL 0.0-0.1 Blood lactic acid measurement (moles/vol ume) - 09/12/18 15:05 Blood lactic acid measurement (moles/volume) 2.45 mmol/L 0.50-2.00 Comprehensive metabolic panel - 09/12/18 15:05 Serum or plasma sodium measurement (moles/volume) 131 mmol/L 135-145 Serum or plasma potassium measurement (moles/volume) 4.0 mmol/L 3.6-5.0 Serum or plasma chloride measurement (moles/volume) 96 mmol/L 98-107 Carbon dioxide 25 mmol/L 21-32 Serum or plasma anion gap determination (moles/volume) 10 mmol/L 5-14 Serum or plasma urea nitrogen measurement (mass/volume ) 20 mg/dL 7-18 Serum or plasma creatinine measurement (mass/volume) 1.17 mg/dL 0.60-1.30 Serum or plasma urea nitrogen/creatinine mass ratio 17 NRG Serum or plasma creatinine measurement w ith calculation of estimated glomerular filtration rate 45 NRG Serum or plasma glucose measurement (mass/volume) 115 mg/dL 70-105 Serum or plasma calcium measurement (mass/volume) 8.7 mg/dL 8.5-10.1 Serum or plasma total bilirubin measurement (mass/volu me) 0.8 mg/dL 0.1-1.0 Serum or plasma alkaline phosphatase mesha surement (enzymatic activity/volume) 110 U/L 40-136 Serum or plasma aspartate aminotransfera se measurement (enzymatic activity/volume) 23 U/L 5-34 Serum or plasma alanine aminotransferase measurement (enzymatic activity/volume) 9 U/L 0-55 Serum or plasma protein measurement (mass/volume) 6.8 g/dL 6.4-8.2 Serum or plasma albumin measurement (mass/volume) 3.2 g/dL 3.2-4.5 CALCIUM CORRECTED 9.3 mg/dL 8.5-10.1 PT panel in platelet poor plasma by coag ulation assay - 09/12/18 15:05 Prothrombin time (PT) in platelet poor plasma by coagu lation assay 20.1 s 12.2-14.7 INR in platelet poor plasma or blood by coagulation as say 1.6 0.8-1.4 Activated partial thromboplastin time (a PTT) in platelet poor plasma bycoagulation assay - 09/12/18 15:05 Activated partial thromboplastin time (a PTT) in platelet poor plasma bycoagulation assay 40 s 24-35 Manual absolute plasma cell count - 08/26 15:05 Blood monocytes/100 leukocytes 16 % NRG Manual blood segmented neutrophils/100 leukocytes 62 % NRG Manual blood lymphocytes/100 leukocytes 11 % NRG Manual blood basophils/100 leukocytes 1 % NRG Blood lymphocytes variant/100 leukocytes 10 % NRG Blood hypochromia detection by light microscopy MO DERATE NR Bacterial blood culture - 09/12/18 15:05 FREE TEXT EXTERNAL (STREP VIRIDANS GROUP) NRG QUANTITY OF GROWTH Isolated NR Bacterial blood culture [id number] [facility] FREE TEXT ENTRY 2 REPORTED BY [facility] 09/14/18 NR FREE TEXT ENTRY 3 SEE COMMENTS NRG Capillary blood glucose measurement by g lucometer (mass/volume) - 09/12/18 15:14 Capillary blood glucose measurement by glucometer (mas s/volume) 110 mg/dL 70-110 Complete urinalysis with reflex to cultu re - 09/12/18 15:26 Urine color determination YELLOW NRG Urine clarity determination CLEAR NR G Urine pH measurement by test strip 5 5-9 Specific gravity of urine by test strip 1.010 1.016-1.022 Urine protein assay by test strip, semi-quantitative NEGATIVE NEGATIVE Urine glucose detection by automated test strip NE GATIVE NEGATIVE Erythrocytes detection in urine sediment by light micr oscopy 1+ NEGATIVE Urine ketones detection by automated test strip NE GATIVE NEGATIVE Urine nitrite detection by test strip NEGATIVE NEGATIVE Urine total bilirubin detection by test strip NEGA TIVE NEGATIVE Urine urobilinogen measurement by automated test strip (mass/volume) NORMAL NORMAL Urine leukocyte esterase detection by dipstick 3+ NEGATIVE Automated urine sediment erythrocyte cou nt by microscopy (number/high power field) NONE NRG Automated urine sediment leukocyte count by microscopy (number/high power field) [HPF] NRG Bacteria detection in urine sediment by light microsco py MODERATE NRG Squamous epithelial cells detection in u rine sediment by light microscopy 2-5 NRG Crystals detection in urine sediment by light microsco py NONE NRG Casts detection in urine sediment by light microscopy PRESENT NRG Mucus detection in urine sediment by light microscopy NEGATIVE NRG Complete urinalysis with reflex to culture CULTURE PENDING NRG Hyaline casts detection in urine sediment by light rafat roscopy 10-25 NRG Bacterial urine culture - 09/12/18 15:26 Bacterial urine culture [id number] NRG COLONY COUNT >100,000/ML NRG FTX;REPORTABLE SUSCEPTIBILITY REPORTED 09/14 12:20 NRG Dirithromycin susceptibility test by dis k diffusion - 09/12/18 15:26 Gentamicin susceptibility test by minimum inhibitory c oncentration <= NRG Trimethoprim/sulfamethoxazole susceptibi lity test by minimum inhibitoryconcentration <= NRG Levofloxacin susceptibility test by minimum inhibitory concentration <= NRG Ampicillin susceptibility test by minimum inhibitory c oncentration > NRG Cefazolin susceptibility test by minimum inhibitory co ncentration > NRG Ceftriaxone susceptibility test by minimum inhibitory concentration <= NRG Ciprofloxacin susceptibility test by minimum inhibitor y concentration <= NRG Meropenem susceptibility test by minimum inhibitory co ncentration <= NRG Nitrofurantoin susceptibility test by mi nimum inhibitory concentration > NRG Amoxicillin and clavulanate potassium susc RAFAT > NRG Bacterial blood culture - 09/12/18 15:42 Bacterial blood culture NG NRG Serum or plasma lactate measurement (mol es/volume) - 09/12/18 17:35 Serum or plasma lactate measurement (moles/volume) 2.18 mmol/L 0.50-2.00 Complete blood count (CBC) with automate d white blood cell (WBC) differential - 09/13/18 22:16 Blood leukocytes automated count (number/volume) 6.4 10*3/uL 4.3-11.0 Blood erythrocytes automated count (number/volume) 4.31 10*6/uL 4.35-5.85 Venous blood hemoglobin measurement (mass/volume) 12.0 g/dL 11.5-16.0 Blood hematocrit (volume fraction) 35 % 35-52 Automated erythrocyte mean corpuscular volume 82 [ foz_us] 80-99 Automated erythrocyte mean corpuscular h emoglobin (mass per erythrocyte) 28 pg 25-34 Automated erythrocyte mean corpuscular h emoglobin concentration measurement (mass/volume) 34 g/dL 32-36 Automated erythrocyte distribution width ratio 14. 2 % 10.0- 14.5 Automated blood platelet count [...] 10*3 1.0-4.0 Blood monocytes automated count (number/volume) 1. 3 10*3 0.0-1.0 Automated eosinophil count 0.0 10*3/uL 0 .0-0.3 Automated blood basophil count (count/volume) 0.0 10*3/uL 0.0-0.1 Blood lactic acid measurement (moles/vol ume) - 09/13/18 22:16 Blood lactic acid measurement (moles/volume) 1.49 mmol/L 0.50-2.00 Comprehensive metabolic panel - 09/13/18 22:16 Serum or plasma sodium measurement (moles/volume) 128 mmol/L 135-145 Serum or plasma potassium measurement (moles/volume) 4.1 mmol/L 3.6-5.0 Serum or plasma chloride measurement (moles/volume) 92 mmol/L 98-107 Carbon dioxide 27 mmol/L 21-32 Serum or plasma anion gap determination (moles/volume) 9 mmol/L 5-14 Serum or plasma urea nitrogen measurement (mass/volume ) 21 mg/dL 7-18 Serum or plasma creatinine measurement (mass/volume) 1.30 mg/dL 0.60-1.30 Serum or plasma urea nitrogen/creatinine mass ratio 16 NRG Serum or plasma creatinine measurement w ith calculation of estimated glomerular filtration rate 40 NRG Serum or plasma glucose measurement (mass/volume) 107 mg/dL 70-105 Serum or plasma calcium measurement (mass/volume) 9.0 mg/dL 8.5-10.1 Serum or plasma total bilirubin measurement (mass/volu me) 0.8 mg/dL 0.1-1.0 Serum or plasma alkaline phosphatase mesha surement (enzymatic activity/volume) 111 U/L 40-136 Serum or plasma aspartate aminotransfera se measurement (enzymatic activity/volume) 34 U/L 5-34 Serum or plasma alanine aminotransferase measurement (enzymatic activity/volume) 11 U/L 0-55 Serum or plasma protein measurement (mass/volume) 6.7 g/dL 6.4-8.2 Serum or plasma albumin measurement (mass/volume) 3.0 g/dL 3.2-4.5 CALCIUM CORRECTED 9.8 mg/dL 8.5-10.1 Magnesium - 09/13/18 22:16 Magnesium 1.5 mg/dL 1.8-2.4 Serum or plasma lithium measurement (mol es/volume) - 09/13/18 22:16 BNP PT 109.1 pg/mL <100.0 Serum or plasma troponin i.cardiac measu rement (mass/volume) - 09/13/18 22:16 Serum or plasma troponin i.cardiac measurement (mass/v olume) < ng/mL <0.028 Serum or plasma thyrotropin measurement by detection limit <=0.05 miu/l (units/volume) - 09/13/18 22:16 Serum or plasma thyrotropin measurement by detection limit <=0.05 miu/l (units/volume) 1.68 u[iU]/mL 0.35-4.94 Manual absolute plasma cell count - 09/25 22:16 Blood monocytes/100 leukocytes 25 % NRG Manual blood segmented neutrophils/100 leukocytes 83 % NRG Blood band neutrophils/100 leukocytes 1 % NRG Manual blood lymphocytes/100 leukocytes 21 % NRG Bacterial blood culture - 09/13/18 22:16 Bacterial blood culture NG NRG Bacterial blood culture - 09/13/18 22:58 Bacterial blood culture NG NRG Complete urinalysis with reflex to cultu re - 09/14/18 00:44 Urine color determination YELLOW NRG Urine clarity determination CLEAR NR G Urine pH measurement by test strip 6.5 5-9 Specific gravity of urine by test strip 1.005 1.016-1.022 Urine protein assay by test strip, semi-quantitative NEGATIVE NEGATIVE Urine glucose detection by automated test strip NE GATIVE NEGATIVE Erythrocytes detection in urine sediment by light micr oscopy NEGATIVE NEGATIVE Urine ketones detection by automated test strip NE GATIVE NEGATIVE Urine nitrite detection by test strip NEGATIVE NEGATIVE Urine total bilirubin detection by test strip NEGA TIVE NEGATIVE Urine urobilinogen measurement by automated test strip (mass/volume) NORMAL NORMAL Urine leukocyte esterase detection by dipstick 1+ NEGATIVE Automated urine sediment erythrocyte cou nt by microscopy (number/high power field) NONE NRG Automated urine sediment leukocyte count by microscopy (number/high power field) RARE NRG Bacteria detection in urine sediment by light microsco py TRACE NRG Squamous epithelial cells detection in u rine sediment by light microscopy RARE NRG Crystals detection in urine sediment by light microsco py NONE NRG Casts detection in urine sediment by light microscopy NONE NRG Mucus detection in urine sediment by light microscopy NEGATIVE NRG Complete urinalysis with reflex to culture NO NRG Complete blood count (CBC) with automate d white blood cell (WBC) differential - 09/14/18 04:51 Blood leukocytes automated count (number/volume) 7.0 10*3/uL 4.3-11.0 Blood erythrocytes automated count (number/volume) 3.96 10*6/uL 4.35-5.85 Venous blood hemoglobin measurement (mass/volume) 11.0 g/dL 11.5-16.0 Blood hematocrit (volume fraction) 33 % 35-52 Automated erythrocyte mean corpuscular volume 83 [ foz_us] 80-99 Automated erythrocyte mean corpuscular h emoglobin (mass per erythrocyte) 28 pg 25-34 Automated erythrocyte mean corpuscular h emoglobin concentration measurement (mass/volume) 34 g/dL 32-36 Automated erythrocyte distribution width ratio 14. 3 % 10.0- 14.5 Automated blood platelet count [...] 10*3 1.0-4.0 Blood monocytes automated count (number/volume) 1. 4 10*3 0.0-1.0 Automated eosinophil count 0.0 10*3/uL 0 .0-0.3 Automated blood basophil count (count/volume) 0.0 10*3/uL 0.0-0.1 Comprehensive metabolic panel - 09/14/18 04:51 Serum or plasma sodium measurement (moles/volume) 130 mmol/L 135-145 Serum or plasma potassium measurement (moles/volume) 4.2 mmol/L 3.6-5.0 Serum or plasma chloride measurement (moles/volume) 96 mmol/L 98-107 Carbon dioxide 26 mmol/L 21-32 Serum or plasma anion gap determination (moles/volume) 8 mmol/L 5-14 Serum or plasma urea nitrogen measurement (mass/volume ) 20 mg/dL 7-18 Serum or plasma creatinine measurement (mass/volume) 1.16 mg/dL 0.60-1.30 Serum or plasma urea nitrogen/creatinine mass ratio 17 NRG Serum or plasma creatinine measurement w ith calculation of estimated glomerular filtration rate 45 NRG Serum or plasma glucose measurement (mass/volume) 119 mg/dL 70-105 Serum or plasma calcium measurement (mass/volume) 8.4 mg/dL 8.5-10.1 Serum or plasma total bilirubin measurement (mass/volu me) 0.7 mg/dL 0.1-1.0 Serum or plasma alkaline phosphatase mesha surement (enzymatic activity/volume) 93 U/L 40-136 Serum or plasma aspartate aminotransfera se measurement (enzymatic activity/volume) 30 U/L 5-34 Serum or plasma alanine aminotransferase measurement (enzymatic activity/volume) 11 U/L 0-55 Serum or plasma protein measurement (mass/volume) 6.1 g/dL 6.4-8.2 Serum or plasma albumin measurement (mass/volume) 2.7 g/dL 3.2-4.5 CALCIUM CORRECTED 9.4 mg/dL 8.5-10.1 Magnesium - 09/14/18 04:51 Magnesium 1.7 mg/dL 1.8-2.4 Methicillin resistant Staphylococcus aur eus (MRSA) screening culture - 09/14/18 13:10 MRSA SCREEN RESULT MRSA ISOLATED [facility] Complete blood count (CBC) with automate d white blood cell (WBC) differential - 09/15/18 06:05 Blood leukocytes automated count (number/volume) 7.4 10*3/uL 4.3-11.0 Blood erythrocytes automated count (number/volume) 3.97 10*6/uL 4.35-5.85 Venous blood hemoglobin measurement (mass/volume) 11.1 g/dL 11.5-16.0 Blood hematocrit (volume fraction) 32 % 35-52 Automated erythrocyte mean corpuscular volume 81 [ foz_us] 80-99 Automated erythrocyte mean corpuscular h emoglobin (mass per erythrocyte) 28 pg 25-34 Automated erythrocyte mean corpuscular h emoglobin concentration measurement (mass/volume) 35 g/dL 32-36 Automated erythrocyte distribution width ratio 14. 1 % 10.0- 14.5 Automated blood platelet count (count/volume) 62 1 0*3/uL 130-400 Automated blood neutrophils/100 leukocytes 46 % 42-75 Automated blood lymphocytes/100 leukocytes 32 % 12-44 Blood monocytes/100 leukocytes 20 % 0-12 Automated blood eosinophils/100 leukocytes 1 % 0-10 Automated blood basophils/100 leukocytes 0 % 0-10 Blood neutrophils automated count (number/volume) 3.4 10*3 1.8-7.8 Blood lymphocytes automated count (number/volume) 2.4 10*3 1.0-4.0 Blood monocytes automated count (number/volume) 1. 5 10*3 0.0-1.0 Automated eosinophil count 0.1 10*3/uL 0 .0-0.3 Automated blood basophil count (count/volume) 0.0 10*3/uL 0.0-0.1 Whole blood basic metabolic panel - 11/26 06:05 Serum or plasma sodium measurement (moles/volume) 129 mmol/L 135-145 Serum or plasma potassium measurement (moles/volume) 4.3 mmol/L 3.6-5.0 Serum or plasma chloride measurement (moles/volume) 98 mmol/L 98-107 Carbon dioxide 20 mmol/L 21-32 Serum or plasma anion gap determination (moles/volume) 11 mmol/L 5-14 Serum or plasma urea nitrogen measurement (mass/volume ) 19 mg/dL 7-18 Serum or plasma creatinine measurement (mass/volume) 1.16 mg/dL 0.60-1.30 Serum or plasma urea nitrogen/creatinine mass ratio 16 NRG Serum or plasma creatinine measurement w ith calculation of estimated glomerular filtration rate 45 NRG Serum or plasma glucose measurement (mass/volume) 78 mg/dL 70-105 Serum or plasma calcium measurement (mass/volume) 8.2 mg/dL 8.5-10.1 Magnesium - 09/15/18 06:05 Magnesium 2.1 mg/dL 1.8-2.4 Automated blood complete blood count (he mogram) panel - 09/16/18 05:30 Blood leukocytes automated count (number/volume) 6.0 10*3/uL 4.3-11.0 Blood erythrocytes automated count (number/volume) 3.70 10*6/uL 4.35-5.85 Venous blood hemoglobin measurement (mass/volume) 10.2 g/dL 11.5-16.0 Blood hematocrit (volume fraction) 30 % 35-52 Automated erythrocyte mean corpuscular volume 82 [ foz_us] 80-99 Automated erythrocyte mean corpuscular h emoglobin (mass per erythrocyte) 28 pg 25-34 Automated erythrocyte mean corpuscular h emoglobin concentration measurement (mass/volume) 34 g/dL 32-36 Automated erythrocyte distribution width ratio 14. 6 % 10.0- 14.5 Automated blood platelet count (count/volume) 92 1 0*3/uL 130-400 Automated blood platelet mean volume measurement 12.6 [foz_us] 7.4-10.4 Whole blood basic metabolic panel - 09/07 05:30 Serum or plasma sodium measurement (moles/volume) 130 mmol/L 135-145 Serum or plasma potassium measurement (moles/volume) 4.1 mmol/L 3.6-5.0 Serum or plasma chloride measurement (moles/volume) 101 mmol/L 98-107 Carbon dioxide 20 mmol/L 21-32 Serum or plasma anion gap determination (moles/volume) 9 mmol/L 5-14 Serum or plasma urea nitrogen measurement (mass/volume ) 21 mg/dL 7-18 Serum or plasma creatinine measurement (mass/volume) 0.96 mg/dL 0.60-1.30 Serum or plasma urea nitrogen/creatinine mass ratio 22 NRG Serum or plasma creatinine measurement w ith calculation of estimated glomerular filtration rate 56 NRG Serum or plasma glucose measurement (mass/volume) 108 mg/dL 70-105 Serum or plasma calcium measurement (mass/volume) 8.0 mg/dL 8.5-10.1 Magnesium - 09/16/18 05:30 Magnesium 1.7 mg/dL 1.8-2.4 Complete blood count (CBC) with automate d white blood cell (WBC) differential - 09/17/18 05:50 Blood leukocytes automated count (number/volume) 6.6 10*3/uL 4.3-11.0 Blood erythrocytes automated count (number/volume) 3.58 10*6/uL 4.35-5.85 Venous blood hemoglobin measurement (mass/volume) 9.9 g/dL 11.5-16.0 Blood hematocrit (volume fraction) 29 % 35-52 Automated erythrocyte mean corpuscular volume 81 [ foz_us] 80-99 Automated erythrocyte mean corpuscular h emoglobin (mass per erythrocyte) 28 pg 25-34 Automated erythrocyte mean corpuscular h emoglobin concentration measurement (mass/volume) 34 g/dL 32-36 Automated erythrocyte distribution width ratio 14. 6 % 10.0- 14.5 Automated blood platelet count (count/volume) 96 1 0*3/uL 130-400 Automated blood platelet mean volume measurement 11.4 [...] 10*3 1.0-4.0 Blood monocytes automated count (number/volume) 1. 2 10*3 0.0-1.0 Automated eosinophil count 0.1 10*3/uL 0 .0-0.3 Automated blood basophil count (count/volume) 0.0 10*3/uL 0.0-0.1 Comprehensive metabolic panel - 09/17/18 05:50 Serum or plasma sodium measurement (moles/volume) 128 mmol/L 135-145 Serum or plasma potassium measurement (moles/volume) 4.5 mmol/L 3.6-5.0 Serum or plasma chloride measurement (moles/volume) 99 mmol/L 98-107 Carbon dioxide 21 mmol/L 21-32 Serum or plasma anion gap determination (moles/volume) 8 mmol/L 5-14 Serum or plasma urea nitrogen measurement (mass/volume ) 21 mg/dL 7-18 Serum or plasma creatinine measurement (mass/volume) 0.99 mg/dL 0.60-1.30 Serum or plasma urea nitrogen/creatinine mass ratio 21 NRG Serum or plasma creatinine measurement w ith calculation of estimated glomerular filtration rate 54 NRG Serum or plasma glucose measurement (mass/volume) 110 mg/dL 70-105 Serum or plasma calcium measurement (mass/volume) 8.7 mg/dL 8.5-10.1 Serum or plasma total bilirubin measurement (mass/volu me) 0.6 mg/dL 0.1-1.0 Serum or plasma alkaline phosphatase mesha surement (enzymatic activity/volume) 97 U/L 40-136 Serum or plasma aspartate aminotransfera se measurement (enzymatic activity/volume) 24 U/L 5-34 Serum or plasma alanine aminotransferase measurement (enzymatic activity/volume) 8 U/L 0-55 Serum or plasma protein measurement (mass/volume) 6.0 g/dL 6.4-8.2 Serum or plasma albumin measurement (mass/volume) 2.4 g/dL 3.2-4.5 CALCIUM CORRECTED 10.0 mg/dL 8.5-10.1 Complete urinalysis with reflex to cultu re - 09/26/18 12:45 Urine color determination YELLOW NRG Urine clarity determination VERY CLOUDY NRG Urine pH measurement by test strip 5 5-9 Specific gravity of urine by test strip 1.010 1.016-1.022 Urine protein assay by test strip, semi-quantitative NEGATIVE NEGATIVE Urine glucose detection by automated test strip NE GATIVE NEGATIVE Erythrocytes detection in urine sediment by light micr oscopy 5+ NEGATIVE Urine ketones detection by automated test strip NE GATIVE NEGATIVE Urine nitrite detection by test strip POSITIVE NEGATIVE Urine total bilirubin detection by test strip NEGA TIVE NEGATIVE Urine urobilinogen measurement by automated test strip (mass/volume) NORMAL NORMAL Urine leukocyte esterase detection by dipstick 3+ NEGATIVE Automated urine sediment erythrocyte cou nt by microscopy (number/high power field) NONE NRG Automated urine sediment leukocyte count by microscopy (number/high power field) [HPF] NRG Bacteria detection in urine sediment by light microsco py LARGE NRG Squamous epithelial cells detection in u rine sediment by light microscopy 10-25 NRG Crystals detection in urine sediment by light microsco py NONE NRG Casts detection in urine sediment by light microscopy NONE NRG Mucus detection in urine sediment by light microscopy SMALL NRG Complete urinalysis with reflex to culture YES NRG Bacterial urine culture - 09/26/18 12:45 Bacterial urine culture [id number] NRG COLONY COUNT >100,000/ML NRG FTX;REPORTABLE ID/SUSCEPTIBILITY REPORTED 09/29/18 14:00 NRG Dirithromycin susceptibility test by dis k diffusion - 09/26/18 12:45 Gentamicin susceptibility test by minimum inhibitory c oncentration <= NRG Levofloxacin susceptibility test by minimum inhibitory concentration <= NRG Tobramycin susceptibility test by minimum inhibitory c oncentration <= NRG Piperacillin/tazobactam susceptibility t est by minimum inhibitory concentration = NRG Ciprofloxacin susceptibility test by minimum inhibitor y concentration <= NRG Meropenem susceptibility test by minimum inhibitory co ncentration <= NRG Aztreonam susceptibility test by minimum inhibitory co ncentration 16 NRG Cefepime susceptibility test by minimum inhibitory con centration 16 NRG Imipenem susceptibility test by minimum inhibitory con centration 2 NRG Ceftazidime susceptibility test by minimum inhibitory concentration > NRG Complete blood count (CBC) with automate d white blood cell (WBC) differential - 09/14/19 12:30 Blood leukocytes automated count (number/volume) 11.0 10*3/uL 4.3-11.0 Blood erythrocytes automated count (number/volume) 4.66 10*6/uL 4.35-5.85 Venous blood hemoglobin measurement (mass/volume) 13.3 g/dL 11.5-16.0 Blood hematocrit (volume fraction) 40 % 35-52 Automated erythrocyte mean corpuscular volume 87 [ foz_us] 80-99 Automated erythrocyte mean corpuscular h emoglobin (mass per erythrocyte) 29 pg 25-34 Automated erythrocyte mean corpuscular h emoglobin concentration measurement (mass/volume) 33 g/dL 32-36 Automated erythrocyte distribution width ratio 18. 1 % 10.0- 14.5 Automated blood platelet count (count/volume) 174 10*3/uL 130-400 Automated blood platelet mean volume measurement 11.3 [foz_us] 7.4-10.4 Automated blood neutrophils/100 leukocytes 41 % 42-75 Automated blood lymphocytes/100 leukocytes 44 % 12-44 Blood monocytes/100 leukocytes 15 % 0-12 Automated blood eosinophils/100 leukocytes 1 % 0-10 Automated blood basophils/100 leukocytes 0 % 0-10 Blood neutrophils automated count (number/volume) 4.5 10*3 1.8-7.8 Blood lymphocytes automated count (number/volume) 4.8 10*3 1.0-4.0 Blood monocytes automated count (number/volume) 1. 6 10*3 0.0-1.0 Automated eosinophil count 0.1 10*3/uL 0 .0-0.3 Automated blood basophil count (count/volume) 0.0 10*3/uL 0.0-0.1 Comprehensive metabolic panel - 09/14/19 12:30 Serum or plasma sodium measurement (moles/volume) 139 mmol/L 135-145 Serum or plasma potassium measurement (moles/volume) 4.0 mmol/L 3.6-5.0 Serum or plasma chloride measurement (moles/volume) 102 mmol/L 98-107 Carbon dioxide 25 mmol/L 21-32 Serum or plasma anion gap determination (moles/volume) 12 mmol/L 5-14 Serum or plasma urea nitrogen measurement (mass/volume ) 19 mg/dL 7-18 Serum or plasma creatinine measurement (mass/volume) 1.73 mg/dL 0.60-1.30 Serum or plasma urea nitrogen/creatinine mass ratio 11 NRG Serum or plasma creatinine measurement w ith calculation of estimated glomerular filtration rate 28 NRG Serum or plasma glucose measurement (mass/volume) 87 mg/dL 70-105 Serum or plasma calcium measurement (mass/volume) 9.0 mg/dL 8.5-10.1 Serum or plasma total bilirubin measurement (mass/volu me) 0.7 mg/dL 0.1-1.0 Serum or plasma alkaline phosphatase mesha surement (enzymatic activity/volume) 86 U/L 40-136 Serum or plasma aspartate aminotransfera se measurement (enzymatic activity/volume) 28 U/L 5-34 Serum or plasma alanine aminotransferase measurement (enzymatic activity/volume) 21 U/L 0-55 Serum or plasma protein measurement (mass/volume) 6.3 g/dL 6.4-8.2 Serum or plasma albumin measurement (mass/volume) 3.2 g/dL 3.2-4.5 CALCIUM CORRECTED 9.6 mg/dL 8.5-10.1 PT panel in platelet poor plasma by coag ulation assay - 09/14/19 12:30 Prothrombin time (PT) in platelet poor plasma by coagu lation assay 21.6 s 12.2-14.7 INR in platelet poor plasma or blood by coagulation as say 1.8 0.8-1.4 Activated partial thromboplastin time (a PTT) in platelet poor plasma bycoagulation assay - 09/14/19 12:30 Activated partial thromboplastin time (a PTT) in platelet poor plasma bycoagulation assay 33 s 24-35 Magnesium - 09/14/19 12:30 Magnesium 2.3 mg/dL 1.6-2.4 Encounters ACCT No. Visit Date/Time Discharge Status Pt. Type Provider Facility Loc./Unit Complaint [id number] 09/26/2018 14:18:00 23:59:59 CLS Outpatient JESUS GUERRERO, RAMIRO Bernal [facility] LABNPT [id number] 09/14/2018 12:55:00 14:09:00 DIS Inpatient CHRISTIANE GUERRERO, CALLIE Bernal [facility] 4TH HYPONATREMIA, HYPOMAGNE SEMIA, UTI [id number] 09/12/2018 14:32:00 18:50:00 DIS Emergency LENO DO, CHARLIE K [facility] ER CONFUSION / SOA / ABD P AIN [id number] 09/02/2018 11:58:00 23:59:59 CLS Outpatient AMARILYS GUERRERO, TAE Bolden [facility] CARD ANTERIOR CHEST WALL CORONA N [id number] 06/10/2018 11:26:00 23:59:59 CLS Outpatient AMILCAR HAYDEN APRN [facility] RAD AF, OTHER ABNOR MALITIES OF LUNG, COUGH [id number] 06/08/2018 10:25:00 23:59:59 CLS Outpatient CHITO GRECO, ОЛЕГ Carter [facility] CARD ANTERIOR CH EST WALL PAIN,HTN [id number] 05/13/2018 16:42:00 23:59:59 CLS Preadmit AMILCAR HAYDEN APRN [facility] SLEEP AF, OTHER ABNOR MALITIES OF LUNG, COUGH [id number] 05/13/2018 16:39:00 23:59:59 CLS Preadmit AMILCAR HAYDEN APRN [facility] RT AF, OTHER ABNOR MALITIES OF LUNG, COUGH [id number] 05/12/2018 14:59:00 23:59:59 CLS Outpatient AMILCAR HAYDEN APRN [facility] RT OTHER ABN OF BR EATHING,COUGH [id number] 04/16/2018 22:37:00 12:45:00 DIS Inpatient RILEY BERNAL, DORY V [facility] 4TH CP R/O ACS,BRONCHITIS [id number] 09/14/2019 12:37:00 Document Registration
== END 2019-09-14 15:07 ==
LOC: EDUNIT# 12:14 → ER 12:15
DX: S42.352A Displaced comminuted fracture of shaft of humerus, left arm, initial encounter for closed fracture (principal); R53.1 Weakness; I48.20 Chronic atrial fibrillation, unspecified; J44.9 Chronic obstructive pulmonary disease, unspecified; I11.0 Hypertensive heart disease with heart failure; I50.9 Heart failure, unspecified; I25.10 Atherosclerotic heart disease of native coronary artery without angina pectoris; E78.00 Pure hypercholesterolemia, unspecified; F41.9 Anxiety disorder, unspecified; F32.9 Major depressive disorder, single episode, unspecified; E66.01 Morbid (severe) obesity due to excess calories; G89.29 Other chronic pain; M54.9 Dorsalgia, unspecified; R40.2142 Coma scale, eyes open, spontaneous, at arrival to emergency department; R40.2252 Coma scale, best verbal response, oriented, at arrival to emergency department; R40.2362 Coma scale, best motor response, obeys commands, at arrival to emergency department; Z88.8 Allergy status to other drugs, medicaments and biological substances; Z79.01 Long term (current) use of anticoagulants; Z79.891 Long term (current) use of opiate analgesic; Z88.6 Allergy status to analgesic agent; Z88.5 Allergy status to narcotic agent; Z86.73 Personal history of transient ischemic attack (TIA), and cerebral infarction without residual deficits; Z68.41 Body mass index [BMI] 40.0-44.9, adult; Z96.653 Presence of artificial knee joint, bilateral; W18.39XA Other fall on same level, initial encounter; W22.8XXA Striking against or struck by other objects, initial encounter
CPT/HCPCS: 36415; 70450; 70486; 71045; 72125; 72128; 72131; 72170; 73030; 80053; 83735; 85025; 85610; 85730; 93041

== ENCOUNTER 2019-09-24 17:36 | Emergency (ER) | payer MEDICARE, MEDICAID ==
[~2019-09-24] VITALS: Ht 165 cm; Wt 127.0 kg
[~2019-09-24 17:36] MED LIST changes: -DIPH25CA79 PO; -DOCU-143 PO; -HYDR-3870 PO
--- NOTE | 2019-09-24 17:54 | ED Upper Extremity ---
General Chief Complaint: Upper Extremity Stated Complaint: L SHOULDER BROKEN Source: patient Exam Limitations: no limitations History of Present Illness Date Seen by Provider: Sep 24, 2019 Time Seen by Provider: 17:52 Initial Comments To ER by a company vehicle from [facility] where she resides with reports of a left shoulder fracture. She fell on Friday of this past week (today being Friday) and had an outpatient x-ray showing a left shoulder fracture. They called her primary care provider who is out of the clinic. She presents here today for prescription for pain medication. She already has referral to orthopedics. Onset: just prior to arrival Severity: moderate Pain/Injury Location: left shoulder Method of Injury: fell Modifying Factors: Worse With Movement Allergies and Home Medications Allergies Coded Allergies: lisinopril (Verified Allergy, Unknown, 09/13/18) metolazone (Verified Allergy, Unknown, 09/13/18) oxycodone (Verified Allergy, Unknown, 09/13/18) tramadol (Verified Allergy, Unknown, 09/13/18) valdecoxib (Verified Allergy, Unknown, 09/13/18) codeine (Verified Adverse Reaction, Unknown, 09/13/18) fentanyl (Verified Adverse Reaction, Unknown, 09/13/18) hydrocodone (Verified Adverse Reaction, Unknown, 09/13/18) morphine (Verified Adverse Reaction, Unknown, 09/13/18) Home Medications Acetaminophen 500 Mg Tablet, 500-1,000 MG PO Q6H PRN for PAIN-MILD, (Reported) TAKES 1-2 (500MG) TABLETS Apixaban 5 Mg Tablet, 5 MG PO BID, (Reported) Atorvastatin Calcium 40 Mg Tablet, 40 MG PO HS, (Reported) Benzocaine 9 Gm Gel..gram., MM UD PRN for GUM PAIN, (Reported) Benzonatate 100 Mg Capsule, 100 MG PO TID PRN for COUGH, (Reported) Budesonide/Formoterol Fumarate 10.2 Gm Hfa.aer.ad, 2 PUFF INH BID, (Reported) Calcium Carbonate 300 Mg Tab.chew, 1-2 TAB.CHEW PO UD PRN for INDIGESTION, (Reported) Cefdinir 300 Mg Capsule, 300 MG PO BID Prescribed by: DORY LIN on 09/17/18 0931 Cyclobenzaprine HCl 5 Mg Tablet, 5 MG PO Q4H PRN for MUSCLE SPASMS, (Reported) Diltiazem HCl 120 Mg Cap.er.24h, 120 MG PO DAILY Prescribed by: RAJESH URRUTIA on 09/15/18 114 Estrogens Conjugated 30 Gm Cr, 0.3 MG VG MoWeFr, (Reported) Furosemide 40 Mg Tablet, 40 MG PO DAILY Prescribed by: RAJESH URRUTIA on 09/15/18 114 Furosemide 40 Mg Tablet, 40 MG PO DAILY Prescribed by: DORY LIN on 09/17/18946 Guaifenesin 1,200 Mg Tab.er.12h, 1,200 MG PO BID, (Reported) Isosorbide Mononitrate 30 Mg Tab.er.24h, 30 MG PO DAILY, (Reported) Levalbuterol Tartrate 15 Gm Hfa.aer.ad, 2 PUFF INH Q4H PRN for SHORTNESS OF BREATH, (Reported) Loratadine 10 Mg Tablet, 10 MG PO DAILY PRN for ITCHING, (Reported) Magnesium Oxide 400 Mg Tablet, 400 MG PO DAILY, (Reported) Menthol 5.8 Mg Lozenge, 1 LOZENGE MM UD PRN for COUGH, (Reported) Metoprolol Tartrate 25 Mg Tablet, 25 MG PO BID, (Reported) Nystatin 15 Gm Oint...g., 0 GM TOP BID Prescribed by: DORY LIN on 09/17/18946 Ondansetron 4 Mg Tab.rapdis, 4 MG PO Q4H PRN for NAUSEA/VOMITING-1ST LINE, (Reported) Ondansetron HCl 4 Mg Tablet, 4 MG PO Q6H PRN for NAUSEA/VOMITING-1ST LINE, (Reported) Potassium Chloride 20 Meq Tab.er.prt, 20 MEQ PO DAILY, (Reported) Sertraline HCl 50 Mg Tablet, 50 MG PO DAILY, (Reported) Spironolactone 25 Mg Tablet, 25 MG PO DAILY, (Reported) Tapentadol HCl 50 Mg Tablet, 50 MG PO Q6H PRN for PAIN UNRESOLVED BY TYLENOL Prescribed by: DORY LIN on 09/17/18946 [Dry Mouth Lozenge] , 1 LOZENGE MM UD PRN for DRY MOUTH, (Reported) [Magic Mouthwash] , 5-10 ML PO EVERY 6-8 HOURS PRN for SORE MOUTH, (Reported) SWISH AND SPIT Patient Home Medication List Home Medication List Reviewed: Yes Review of Systems Constitutional: see HPI EENTM: see HPI Respiratory: no symptoms reported Cardiovascular: no symptoms reported Genitourinary: no symptoms reported Musculoskeletal: see HPI Skin: no symptoms reported Psychiatric/Neurological: No Symptoms Reported Past [id number] Hx Patient Social History Recent Foreign Travel: No Contact w/Someone Who Travel: No Recent Hopitalizations: No Immunizations Up To Date Tetanus Booster (TDap): Unknown Date of Pneumonia Vaccine: Mar 24, 2018 Date of Influenza Vaccine: Apr 03, 2018 Seasonal Allergies Seasonal Allergies: No Past Medical History Surgeries: Yes Bladder Surgery, Cardiac, Eye Surgery, Joint Replacement, Orthopedic, Rectal Respiratory: Yes (O2 AT 3L/NC CONTINOUSLY) Sleep Apnea, COPD Currently Using CPAP: No Currently Using BIPAP: No Cardiac: Yes (CHF) Atrial Fibrillation, Chronic Edema/Swelling, Coronary Artery Disease, Heart Murmur, High Cholesterol, Hypertension Neurological: Yes (RESTLESS LEG SYNDROME) TIA QUALITY ASSURANCE ADVISOR History: Menopausal Genitourinary: Yes (BLADDER REPAIR/CYSTOCOELE) Bladder Infection, Renal Failure, UTI-Chronic Gastrointestinal: Yes (RECTAL REPAIR/RECTOCOELE) Musculoskeletal: Yes (CERVICAL FUSION X2;tendon repair monik ankles;BILAT TKR;NECK PAIN) Degenerate Disk Disease, Osteoporosis, Arthritis, Chronic Back Pain Endocrine: Yes (MORBIDLY OBESE;HYPOMAGNESEMIA) Hypothyroidsim HEENT: Yes (double vision from TIA pt stated) Cataract, Macular Degeneration, Double Vision Cancer: No Psychosocial: Yes Anxiety, Depression Integumentary: No Blood Disorders: No Family Medical History No Pertinent Family Hx PSH: -BILATERAL TOTAL KNEE REPLACEMENTS -BILATERAL ANKLE TENDON REPAIRS -CERVICAL SPINE FUSION X 2 -CYSTOCOELE/RECTOCOELE REPAIR -BILATERAL CATARACT SURGERY Physical Exam Vital Signs Vital Signs - First Documented 09/24/19 17:45 Temp 37.3 Pulse 105 Resp 20 B/P (MAP) 120/76 (91) Pulse Ox 92 Capillary Refill : Height, Weight, BMI Height: 5'5.00" Weight: 263lbs. 1.2oz. 119.482159ps; 46.00 BMI Method:Stated General Appearance: WD/WN, no apparent distress, obese Neck: non-tender, full range of motion Respiratory: no respiratory distress, no accessory muscle use Gastrointestinal: normal bowel sounds, non tender Shoulder: normal inspection (due to body habitus, any deformity would be difficult to appreciate. She does have tenderness to palpation of the left shoulder. There is quite a bit of edema to the distal forearm on the left.) Elbow/Forearm: non-tender, swelling Wrist: Yes swelling Hand: Left, swelling Neurologic/Psychiatric: alert, normal mood/affect, oriented x 3 Skin: normal color, warm/dry Progress/Results/Core Measures Results/Orders My Orders Orders - SOFI GRISSOM APRN Hydrocodone/Apap 5/325 Tablet (Lortab 5 (09/24/19 18:00) Shoulder, Left, 3 Views (09/24/19 17:46) Medications Given in ED Current Medications Medications Dose Ordered Sig/Teodora Route Start Time Stop Time Status Last Admin Dose Admin Acetaminophen/ Hydrocodone Bitart 1 tab ONCE ONCE PO 09/24/19 18:00 09/24/19 18:01 DC 09/24/19 18:04 1 TAB Vital Signs/I&O 09/24/19 17:45 Temp 37.3 Pulse 105 Resp 20 B/P (MAP) 120/76 (91) Pulse Ox 92 Departure Communication (Admissions) Therefore she has some itching and occasionally rash to pain medication. They would like to try Benadryl plus hydrocodone. Impression Primary Impression: Shoulder fracture, left Qualified Codes: S42.92XA - Fracture of left shoulder girdle, part unspecified, initial encounter for closed fracture Disposition: HOME, SELF-CARE Condition: Stable Departure-Patient Inst. Decision time for Depature: 18:45 Referrals: RAMIRO LEE MD (PCP/Family) Primary Care Physician Patient Instructions: Shoulder Fracture Add. Discharge Instructions: 1. Continue to wear the sling 2. Elevate the hand to reduce swelling in the hand. Follow-up with orthopedics as scheduled. Pain medication and Benadryl as directed. All discharge instructions reviewed with patient and/or family. Voiced understanding. Scripts Diphenhydramine HCl (Benadryl) 25 Mg Capsule 25 MG PO Q4H PRN for ITCHING, #20 CAP Prov: SOFI GRISSOM APRN 09/24/19 Docusate Sodium (Colace) 100 Mg Capsule 100 MG PO BID, #30 CAP Prov: SOFI GRISSOM APRN 09/24/19 SOFI GRISSOM APRN Sep 24, 2019 17:54
[2019-09-24] MEDS ORDERED: HYDROcodone/APAP 5 MG/325 MG (LORTAB) TAB PO ONE (18:00)
[2019-09-24] MEDS ORDERED: DIPH25CA79 PO (18:48)
[2019-09-24] MEDS ORDERED: DOCU-143 PO (18:48)
[2019-09-24] MEDS ORDERED: HYDR-3870 PO (18:49)
--- NOTE | 2019-09-24 18:55 | Diagnostic Imaging Report ---
INDICATION: Left arm pain, fell on Friday. Continued pain since. Was told she had a fracture of the shoulder at that time. EXAMINATION: Left shoulder, 09/24/2019. COMPARISON: 09/14/2019. FINDINGS: There is a comminuted fracture of the proximal left humerus slightly displaced and foreshortened in nature. No evidence of dislocation. There appears to be possible postoperative change at the acromioclavicular joint. There is evidence of old granulomatous disease in the visualized left lung. IMPRESSION: Comminuted proximal humerus fractures with other findings as above. Dictated by: Dictated on workstation # [id number]
[2019-09-24] MEDS ORDERED: RX-HYDROCODONE/APAP 5/325 MG #4 TAB PK PO PRN (19:00)
[2019-09-24 19:01] VITALS: BP 122/78
--- OUTSIDE RECORDS SUMMARY | 2019-09-24 22:04 | XMS REPORT | Continuity of Care Document ---
Author Organization Unknown Address Unknown Phone Unavailable Allergies Active Description Code Type Severity Reaction Onset Reported/Identified Relationship to Patient Clinical Status Yes codeine [id number] Drug Allergy Unknown N/A 09/13/2018 Yes fentanyl [id number] Drug Allergy Unknown N/A 09/13/2018 Yes hydrocodone [id number] Drug Aller gy Unknown N/A 09/13/2018 Yes lisinopril [id number] Drug Allerg y Unknown N/A 09/13/2018 Yes metolazone [id number] Drug Allerg y Unknown N/A 09/13/2018 Yes morphine [id number] Drug Allergy Unknown N/A 09/13/2018 Yes oxycodone [id number] Drug Allergy Unknown N/A 09/13/2018 Yes tramadol [id number] Drug Allergy Unknown N/A 09/13/2018 Yes valdecoxib [id number] Drug Allerg y Unknown N/A 09/13/2018 Medications [...] TO OTH DRUG/MEDS/BIOL SUB 05/13/2018 AMILCAR HAYDEN [employer] CHENILLER Ot R05 COUGH 05/13/2018 AMILCAR HAYDEN [employer] CH[employer] Ot R06.89 OTHER ABNORMALITIES OF BREATHING 05/19/2018 AMILCAR HAYDEN [employer] CHENILLER Ot R05 COUGH 05/19/2018 AMILCAR HAYDEN [employer] CHENILLER Ot R06.89 OTHER ABNORMALITIES OF BREATHING 06/03/2018 AMILCAR HAYDEN [employer]LE CONTR[employer] CHENILLER Ot R05 COUGH 06/03/2018 AMILCAR HAYDEN [employer] CONTR[employer] CHENILLER Ot R06.89 OTHER ABNORMALITIES OF BREATHING 06/10/2018 PADMAJA LEY Ot I10 ESSENTIAL (PRIMARY) HYPERTENSION 06/10/2018 PADMAJA LEY Ot I48.0 PAROXYSMAL ATRIAL FIBRILLATION 06/10/2018 PADMAJA LEY Ot R06.00 DYSPNEA, UNSPECIFIED 06/10/2018 PADMAJA LEY Ot R07.89 OTHER CHEST PAIN 06/22/2018 AMILCAR HAYDEN [employer] CHENILLER Ot R05 COUGH 06/22/2018 AMILCAR HAYDEN [employer] CHENILLER Ot R06.89 OTHER ABNORMALITIES OF BREATHING 06/22/2018 AMILCAR HAYDEN [employer] CHENILLER Ot G47.10 HYPERSOMNIA, UNSPECIFIED 06/22/2018 AMILCAR HAYDEN E [employer]LE CONTR[employer] CHENILLER Ot G47.50 PARASOMNIA, UNSPECIFIED 06/22/2018 JACKELYN, AMILCAR E NEEDLE CONTROL CHENILLER Ot I48.91 UNSPECIFIED ATRIAL FIBRILLATION 06/22/2018 AMILCAR HAYDEN E [employer]LE CONTR[employer] CHENILLER Ot 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 06/22/2018 [...] R07.89 OTHER CHEST PAIN 07/03/2018 AMILCAR HAYDEN [employer] CHENILLER Ot G47.10 HYPERSOMNIA, UNSPECIFIED 07/03/2018 JACKELYN, AMILCAR E NEEDLE CONTROL CHENILLER Ot G47.50 PARASOMNIA, UNSPECIFIED 07/03/2018 BO HAYDENINE E NEEDLE CONTROL CHENILLER Ot I48.91 UNSPECIFIED ATRIAL FIBRILLATION 07/03/2018 BO HAYDENINE E NEEDLE CONTROL CHENILLER Ot 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 9 CHRONIC OBSTRUCTIVE PULMONARY [...] GRANDE MD, Ot Y92.[address] IN DETENTION PLACE 09/17/2018 CALLIE GRANDE MD Ot Z66 DO NOT RESUSCITATE 09/17/2018 CALLIE GRANDE MD, Ot Z68. 41 BODY MASS INDEX (BMI) 40.0-44.9, ADULT 09/17/2018 CALLIE GRANDE MD, Ot Z79. 01 HALF-WAY (CURRENT) USE OF ANTICOAGULANT 09/17/2018 CALLIE GRANDE [...] GRANDE MD Ot Y92.[address] IN DETENTION PLACE 09/18/2018 CALLIE GRANDE MD, Ot Z66 DO NOT RESUSCITATE 09/18/2018 CALLIE GRANDE MD, Ot Z68. 41 BODY MASS INDEX (BMI) 40.0-44.9, ADULT 09/18/2018 CALLIE GRANDE MD Ot Z79. 01 HALF-WAY (CURRENT) USE OF ANTICOAGULANT 09/18/2018 CALLIE GRANDE [...] GRANDE MD, Ot Y92.[address] IN DETENTION PLACE 09/18/2018 CALLIE GRANDE MD, Ot Z66 DO NOT RESUSCITATE 09/18/2018 CALLIE GRANDE MD, Ot Z68. 41 BODY MASS INDEX (BMI) 40.0-44.9, ADULT 09/18/2018 CALLIE GRANDE MD, Ot Z79. 01 GLAZE CARRIER (CURRENT) USE OF ANTICOAGULANT 09/18/2018 CALLIE GRANDE [...] 9 ENCOUNTER FOR OTHER SPECIFIED SPECIAL EX 09/14/2019 LENO DO, CHARLIE Carter Ot E66.01 MORBID (SEVERE) OBESITY DUE TO EXCESS CA 09/14/2019 LENO DO, CHARLIE Carter Ot E78.00 PURE HYPERCHOLESTEROLEMIA, UNSPECIFIED 09/14/2019 LENO DO, CHARLIE Carter Ot F32.9 MAJOR DEPRESSIVE DISORDER, SINGLE EPISOD 09/14/2019 LENO DO, CHARLIE Carter Ot F41.9 ANXIETY DISORDER, UNSPECIFIED 09/14/2019 LENO DO, CHARLIE Carter Ot G89.29 OTHER CHRONIC PAIN 09/14/2019 LENO DO, CHARLIE Carter Ot I11.0 HYPERTENSIVE HEART DISEASE WITH HEART FA 09/14/2019 LENO DO, CHARLIE Carter Ot I25.10 ATHSCL HEART DISEASE OF [place] CORONARY 09/14/2019 LENO DO, CHARLIE Carter Ot I48.20 CHRONIC ATRIAL FIBRILLATION, UNSPECIFIED 09/14/2019 LENO DO, CHARLIE Carter Ot I50.9 HEART FAILURE, UNSPECIFIED 09/14/2019 LENO DO, CAHRLIE Carter Ot J44.9 CHRONIC OBSTRUCTIVE PULMONARY DISEASE, U 09/14/2019 LENO DO, CHARLIE Carter Ot M54.9 DORSALGIA, UNSPECIFIED 09/14/2019 LENO DO, CHARLIE K Ot R40.214 2 COMA SCALE, EYES OPEN, SPONTANEOUS, EMR 09/14/2019 LENO DO, CHARLIE Carter Ot R40.225 2 COMA SCALE, BEST VERBAL RESPONSE, ORIENT 09/14/2019 LENO DO, CHARLIE Carter Ot R40.236 2 COMA SCALE, BEST MOTOR RESPONSE, OBEYS C 09/14/2019 LENO DOCHARLIE Ot R53.1 WEAKNESS 09/14/2019 LENO DO, CHARLIE Carter Ot S42.352 A DISPLACED COMMINUTED FX SHAFT OF HUMERUS 09/14/2019 LENO DOCHARLIE Ot W18.39X A OTHER FALL ON SAME LEVEL, INITIAL ENCOUN 09/14/2019 LENO DO, CHARLIE Carter Ot W22.8XX A STRIKING AGAINST OR STRUCK BY OTHER OBJE 09/14/2019 LENO DOCHARLIE Ot Z68.41 BODY MASS INDEX (BMI) 40.0-44.9, ADULT 09/14/2019 LENO DOCHARLIE Ot Z79.01 HALF-WAY (CURRENT) USE OF ANTICOAGULANT 09/14/2019 LENO DOCHARLIE Ot Z79.891 HALF-WAY (CURRENT) USE OF OPIATE ANALGE 09/14/2019 LENO DOCHARLIE Ot Z86.73 PRSNL HX OF TIA (TIA), AND CEREB INFRC W 09/14/2019 LENO DOCHARLIE Ot Z88.5 ALLERGY STATUS TO NARCOTIC AGENT STATUS 09/14/2019 LENO DOCHARLIE Ot Z88.6 ALLERGY STATUS TO ANALGESIC AGENT STATUS 09/14/2019 LENO DOCHARLIE Ot Z88.8 ALLERGY STATUS TO OTH DRUG/MEDS/BIOL SUB 09/14/2019 LENO DOCHARLIE Ot Z96.653 PRESENCE OF ARTIFICIAL KNEE JOINT, BILAT 09/14/2019 TAE PANDA MD Ot E78. 2 MIXED HYPERLIPIDEMIA 09/14/2019 TAE PANDA MD Ot G45. 9 TRANSIENT CEREBRAL ISCHEMIC ATTACK, UNSP 09/14/2019 TAE PANDA MD Ot I10 ESSENTIAL (PRIMARY) HYPERTENSION 09/14/2019 TAE PANDA MD Ot R06. 00 DYSPNEA, UNSPECIFIED 09/14/2019 TAE PANDA MD Ot R07. 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 9 TRANSIENT CEREBRAL ISCHEMIC ATTACK, UNSP 09/14/2019 TAE PANDA MD Ot I10 ESSENTIAL (PRIMARY) HYPERTENSION 09/14/2019 TAE PANDA MD Ot R06. 00 DYSPNEA, UNSPECIFIED 09/14/2019 TAE PANDA MD Ot R07. 89 OTHER CHEST PAIN 09/14/2019 RAMIRO LEE MD Ot Z01.8 9 ENCOUNTER FOR OTHER SPECIFIED SPECIAL EX 09/18/2019 CHARLIE BURR DO Ot E66.01 MORBID (SEVERE) OBESITY DUE TO EXCESS CA 09/18/2019 LENO CHARLIE BERNAL Ot E78.00 PURE HYPERCHOLESTEROLEMIA, UNSPECIFIED 09/18/2019 LENO CHARLIE BERNAL Ot F32.9 MAJOR DEPRESSIVE DISORDER, SINGLE EPISOD 09/18/2019 LENO CHARLIE BERNAL Ot F41.9 ANXIETY DISORDER, UNSPECIFIED 09/18/2019 LENO DO, CHARLIE K Ot G89.29 OTHER CHRONIC PAIN 09/18/2019 LENO DO, CHARLIE Carter Ot I11.0 HYPERTENSIVE HEART DISEASE WITH HEART FA 09/18/2019 LENO DO, CHARLIE K Ot I25.10 ATHSCL HEART DISEASE OF [place] CORONARY 09/18/2019 LENO DO, CHARLIE Carter Ot I48.20 CHRONIC ATRIAL FIBRILLATION, UNSPECIFIED 09/18/2019 LENO DO, CHARLIE Carter Ot I50.9 HEART FAILURE, UNSPECIFIED 09/18/2019 LENO DO, CHARLIE Carter Ot J44.9 CHRONIC OBSTRUCTIVE PULMONARY DISEASE, U 09/18/2019 LENO DO, CHARLIE Carter Ot M54.9 DORSALGIA, UNSPECIFIED 09/18/2019 LENO DO, CHARLIE K Ot R40.214 2 COMA SCALE, EYES OPEN, SPONTANEOUS, EMR 09/18/2019 LENO DOCHARLIE Ot R40.225 2 COMA SCALE, BEST VERBAL RESPONSE, ORIENT 09/18/2019 LENO DOCHARLIE Ot R40.236 2 COMA SCALE, BEST MOTOR RESPONSE, OBEYS C 09/18/2019 LENO DOCHARLIE Ot R53.1 WEAKNESS 09/18/2019 LENO DOCHARLIE Ot S42.352 A DISPLACED COMMINUTED FX SHAFT OF HUMERUS 09/18/2019 LENO DO, CHARLIE Carter Ot W18.39X A OTHER FALL ON SAME LEVEL, INITIAL ENCOUN 09/18/2019 LENO DOCHARLIE Ot W22.8XX A STRIKING AGAINST OR STRUCK BY OTHER OBJE 09/18/2019 ERIE DOCHARLIE Ot Z68.41 BODY MASS INDEX (BMI) 40.0-44.9, ADULT 09/18/2019 LENO DOSOLA K Ot Z79.01 HALF-WAY (CURRENT) USE OF ANTICOAGULANT 09/18/2019 LENO DOSOLA Raul Ot Z79.891 GLAZE CARRIER (CURRENT) USE OF OPIATE ANALGE 09/18/2019 LENO DOCHARLIE Ot Z86.73 PRSNL HX OF TIA (TIA), AND CEREB INFRC W 09/18/2019 LENO DOCHARLIE Ot Z88.5 ALLERGY STATUS TO NARCOTIC AGENT STATUS 09/18/2019 LENO DO, CHARLIE Carter Ot Z88.6 ALLERGY STATUS TO ANALGESIC AGENT STATUS 09/18/2019 LENO DO, CHARLIE K Ot Z88.8 ALLERGY STATUS TO OTH DRUG/MEDS/BIOL SUB 09/18/2019 LENO DO, CHARLIE Raul Ot Z96.653 PRESENCE OF ARTIFICIAL KNEE JOINT, BILAT 09/20/2019 LENO DO, CHARLIE K Ot E66.01 MORBID (SEVERE) OBESITY DUE TO EXCESS CA 09/20/2019 LENO DO, CHARLIE K Ot E78.00 PURE HYPERCHOLESTEROLEMIA, UNSPECIFIED 09/20/2019 LENO DO, CHARLIE K Ot F32.9 MAJOR DEPRESSIVE DISORDER, SINGLE EPISOD 09/20/2019 LENO DO, CHARLIE Raul Ot F41.9 ANXIETY DISORDER, UNSPECIFIED 09/20/2019 LENO DO, CHARLIE Raul Ot G89.29 OTHER CHRONIC PAIN 09/20/2019 LENO DO, CHARLIE Raul Ot I11.0 HYPERTENSIVE HEART DISEASE WITH HEART FA 09/20/2019 LENO DO, CHARLIE Raul Ot I25.10 ATHSCL HEART DISEASE OF [place] CORONARY 09/20/2019 LENO DO, CHARLIE Raul Ot I48.20 CHRONIC ATRIAL FIBRILLATION, UNSPECIFIED 09/20/2019 LENO DO, CHARLIE K Ot I50.9 HEART FAILURE, UNSPECIFIED 09/20/2019 LENO DO, CHARLIE K Ot J44.9 CHRONIC OBSTRUCTIVE PULMONARY DISEASE, U 09/20/2019 LENO DO, CHARLIE Raul Ot M54.9 DORSALGIA, UNSPECIFIED 09/20/2019 LENO DO, CHARLIE K Ot R40.214 2 COMA SCALE, EYES OPEN, SPONTANEOUS, EMR 09/20/2019 LENO DOCHARLIE Ot R40.225 2 COMA SCALE, BEST VERBAL RESPONSE, ORIENT 09/20/2019 LENO DOCHARLIE Ot R40.236 2 COMA SCALE, BEST MOTOR RESPONSE, OBEYS C 09/20/2019 LENO DOSOLA Raul Ot R53.1 WEAKNESS 09/20/2019 LENO DO, CHARLIE K Ot S42.352 A DISPLACED COMMINUTED FX SHAFT OF HUMERUS 09/20/2019 LENO DO, CHARLIE Carter Ot W18.39X A OTHER FALL ON SAME LEVEL, INITIAL ENCOUN 09/20/2019 LENO DO, CHARLIE Carter Ot W22.8XX A STRIKING AGAINST OR STRUCK BY OTHER OBJE 09/20/2019 LENO BERNAL, CHARLIE Carter Ot Z68.41 BODY MASS INDEX (BMI) 40.0-44.9, ADULT 09/20/2019 ERIE CHARLIE Raul Ot Z79.01 HALF-WAY (CURRENT) USE OF ANTICOAGULANT 09/20/2019 [facility], CHARLIE Raul Ot Z79.891 HALF-WAY (CURRENT) USE OF OPIATE ANALGE 09/20/2019 [facility] CHARLIE Raul Ot Z86.73 PRSNL HX OF TIA (TIA), AND CEREB INFRC W 09/20/2019 [facility] CHARLIE Raul Ot Z88.5 ALLERGY STATUS TO NARCOTIC AGENT STATUS 09/20/2019 [facility] CHARLIE K Ot Z88.6 ALLERGY STATUS TO ANALGESIC AGENT STATUS 09/20/2019 [facility] CHARLIE Raul Ot Z88.8 ALLERGY STATUS TO OTH DRUG/MEDS/BIOL SUB 09/20/2019 ERIE CHARLIE Raul Ot Z96.653 PRESENCE OF ARTIFICIAL KNEE JOINT, BILAT 09/24/2019 TAE PANDA MD Ot E78. 2 MIXED HYPERLIPIDEMIA 09/24/2019 TAE PANDA MD Ot G45. 9 TRANSIENT CEREBRAL ISCHEMIC ATTACK, UNSP 09/24/2019 TAE PANDA MD Ot I10 ESSENTIAL (PRIMARY) HYPERTENSION 09/24/2019 TAE PANDA MD Ot R06. 00 DYSPNEA, UNSPECIFIED 09/24/2019 TAE PANDA MD Ot R07. 89 OTHER CHEST PAIN 09/24/2019 RAMIRO LEE MD Ot Z01.8 9 ENCOUNTER FOR OTHER SPECIFIED SPECIAL EX 09/24/2019 TAE PANDA MD Ot E78. 2 MIXED HYPERLIPIDEMIA 09/24/2019 TAE PANDA MD Ot G45. 9 TRANSIENT CEREBRAL ISCHEMIC ATTACK, UNSP 09/24/2019 TAE PANDA MD Ot I10 ESSENTIAL (PRIMARY) HYPERTENSION 09/24/2019 TAE PANDA MD Ot R06. 00 DYSPNEA, UNSPECIFIED 09/24/2019 TAE PANDA MD Ot R07. 89 OTHER CHEST PAIN 09/24/2019 RAMIRO LEE MD Ot Z01.8 9 ENCOUNTER [...] hypochromia detection by light microscopy MO DERATE NRG Bacterial blood culture - 09/12/18 15:05 FREE TEXT EXTERNAL (STREP VIRIDANS GROUP) NRG QUANTITY OF GROWTH Isolated NRG Bacterial blood culture [id number] NR FREE TEXT ENTRY 2 REPORTED BY [facility] 09/14/18 NR FREE TEXT ENTRY 3 SEE [...] culture - 09/12/18 15:26 Bacterial urine culture [id number] NRG COLONY COUNT >100,000/ML NRG FTX;REPORTABLE SUSCEPTIBILITY [...] 09/14/18 13:10 MRSA SCREEN RESULT MRSA ISOLATED NRG Complete blood count (CBC) with automate [...] culture - 09/26/18 12:45 Bacterial urine culture [id number] NRG COLONY COUNT >100,000/ML NRG FTX;REPORTABLE ID/SUSCEPTIBILITY [...] - 09/14/19 12:30 Magnesium 2.3 mg/dL 1.6-2.4 Complete blood count (CBC) with automate d white blood cell (WBC) differential - 09/24/19 16:05 Blood leukocytes automated count (number/volume) 9.5 10*3/uL 4.3-11.0 Blood erythrocytes automated count (number/volume) 3.90 10*6/uL 4.35-5.85 Venous blood hemoglobin measurement (mass/volume) 11.2 g/dL 11.5-16.0 Blood hematocrit (volume fraction) 35 % 35-52 Automated erythrocyte mean corpuscular volume 89 [ foz_us] 80-99 Automated erythrocyte mean corpuscular h emoglobin (mass per erythrocyte) 29 pg 25-34 Automated erythrocyte mean corpuscular h emoglobin concentration measurement (mass/volume) 32 g/dL 32-36 Automated erythrocyte distribution width ratio 17. 2 % 10.0- 14.5 Automated blood platelet count (count/volume) 235 10*3/uL 130-400 Automated blood platelet mean volume measurement 11.3 [foz_us] 7.4-10.4 Automated blood neutrophils/100 leukocytes 62 % 42-75 Automated blood lymphocytes/100 leukocytes 21 % 12-44 Blood monocytes/100 leukocytes 13 % 0-12 Automated blood eosinophils/100 leukocytes 3 % 0-10 Automated blood basophils/100 leukocytes 0 % 0-10 Blood neutrophils automated count (number/volume) 5.9 10*3 1.8-7.8 Blood lymphocytes automated count (number/volume) 2.0 10*3 1.0-4.0 Blood monocytes automated count (number/volume) 1. 2 10*3 0.0-1.0 Automated eosinophil count 0.3 10*3/uL 0 .0-0.3 Automated blood basophil count (count/volume) 0.0 10*3/uL 0.0-0.1 Whole blood basic metabolic panel - 09/07 09/26 16:05 Serum or plasma sodium measurement (moles/volume) 139 mmol/L 135-145 Serum or plasma potassium measurement (moles/volume) 4.3 mmol/L 3.6-5.0 Serum or plasma chloride measurement (moles/volume) 102 mmol/L 98-107 Carbon dioxide 27 mmol/L 21-32 Serum or plasma anion gap determination (moles/volume) 10 mmol/L 5-14 Serum or plasma urea nitrogen measurement (mass/volume ) 19 mg/dL 7-18 Serum or plasma creatinine measurement (mass/volume) 1.41 mg/dL 0.60-1.30 Serum or plasma urea nitrogen/creatinine mass ratio 13 NRG Serum or plasma creatinine measurement w ith calculation of estimated glomerular filtration rate 36 NRG Serum or plasma glucose measurement (mass/volume) 113 mg/dL 70-105 Serum or plasma calcium measurement (mass/volume) 8.8 mg/dL 8.5-10.1 Encounters ACCT No. Visit Date/Time Discharge Status Pt. Type Provider Facility Loc./Unit Complaint [id number] 09/24/2019 17:37:00 18:55:00 DIS Emergency SOFI GRISSOM APRN [facility] ER L SHOULDER BROKEN [id number] 09/14/2019 12:15:00 15:07:00 DIS Emergency CHARLIE BURR DO [facility] ER FALL [id number] 09/26/2018 14:18:00 23:59:59 CLS Outpatient JESUS GUERRERO, RAMIRO Bernal [facility] LABNPT [id number] 09/14/2018 12:55:00 14:09:00 DIS Inpatient CHRISTIANE GUERRERO, CALLIE Bernal [facility] 4TH HYPONATREMIA, HYPOMAGNE SEMIA, UTI [id number] 09/12/2018 14:32:00 18:50:00 DIS Emergency LENO DO, CHARLIE Carter [facility] ER CONFUSION / SOA / ABD P AIN [id number] 09/02/2018 11:58:00 23:59:59 CLS Outpatient TAE PANDA MD [facility] CARD ANTERIOR CHEST WALL [place] N [id number] 06/10/2018 11:26:00 23:59:59 CLS Outpatient AMILCAR HAYDEN NEEDLE CONTROL CHENILLER [facility] RAD AF, OTHER [place] MALITIES OF LUNG, COUGH [id number] 06/08/2018 10:25:00 23:59:59 CLS Outpatient ОЛЕГ LEY [facility] CARD ANTERIOR CH EST WALL PAIN,HTN [id number] 05/13/2018 16:42:00 23:59:59 CLS Preadmit AMILCAR HAYDEN NEEDLE CONTR[employer] CHENILLER [facility] SLEEP AF, OTHER [place] MALITIES OF LUNG, COUGH [id number] 05/13/2018 16:39:00 23:59:59 CLS Preadmit AMILCAR HAYDEN NEEDLE CONTROL CHENILLER [facility] RT AF, OTHER ABNOR MALITIES OF LUNG, COUGH [id number] 05/12/2018 14:59:00 23:59:59 CLS Outpatient AMILCAR HAYDEN NEEDLE CONTROL CHENILLER [facility] RT OTHER ABN OF BR EATHING,COUGH [id number] 04/16/2018 22:37:00 12:45:00 DIS Inpatient LIN DO, DOYR [facility] 4TH CP R/O ACS,BRONCHITIS [id number] 09/24/2019 16:30:[address] Outpatient JESUS GUERRERO, RAMIRO Bernal [facility] LABNPT
== END 2019-09-24 18:55 | disposition home or self-care (01) ==
LOC: EDUNIT# 17:36 → ER 17:37
DX: S42.92XA Fracture of left shoulder girdle, part unspecified, initial encounter for closed fracture (principal); I48.91 Unspecified atrial fibrillation; I11.0 Hypertensive heart disease with heart failure; I50.9 Heart failure, unspecified; J44.9 Chronic obstructive pulmonary disease, unspecified; E78.00 Pure hypercholesterolemia, unspecified; I25.10 Atherosclerotic heart disease of native coronary artery without angina pectoris; E66.09 Other obesity due to excess calories; F41.9 Anxiety disorder, unspecified; F32.9 Major depressive disorder, single episode, unspecified; G89.29 Other chronic pain; M54.9 Dorsalgia, unspecified; N39.0 Urinary tract infection, site not specified; Z86.73 Personal history of transient ischemic attack (TIA), and cerebral infarction without residual deficits; Z88.8 Allergy status to other drugs, medicaments and biological substances; Z88.5 Allergy status to narcotic agent; Z79.01 Long term (current) use of anticoagulants; Z88.6 Allergy status to analgesic agent; Z96.653 Presence of artificial knee joint, bilateral; Z68.42 Body mass index [BMI] 45.0-49.9, adult; W19.XXXA Unspecified fall, initial encounter
CPT/HCPCS: 73030

== ENCOUNTER → 2019-09-24 | Outpatient (CLI) | payer MEDICARE, MEDICAID ==
[~2019-09-24] MED LIST changes: +DIPH25CA79 PO; +DOCU-143 PO; +HYDR-3870 PO
[2019-09-24 16:42] LABS: BASOPHILS % (AUTO) 0 % (0-10); EOSINOPHILS # (AUTO) 0.3 10^3/uL (0.0-0.3); EOSINOPHILS % (AUTO) 3 % (0-10); HEMATOCRIT 35 % (35-52); HEMOGLOBIN 11.2 G/DL (11.5-16.0); LYMPHOCYTES % (AUTO) 21 % (12-44); MEAN CORPUSCULAR HEMOGLOBIN 29 PG (25-34); MEAN CORPUSCULAR HGB CONC 32 G/DL (32-36); MEAN CORPUSCULAR VOLUME 89 FL (80-99); MEAN PLATELET VOLUME 11.3 FL (7.4-10.4); MONOCYTES # (AUTO) 1.2 X 10^3 (0.0-1.0); MONOCYTES % (AUTO) 13 % (0-12); NEUTROPHILS # (AUTO) 5.9 X 10^3 (1.8-7.8); NEUTROPHILS % (AUTO) 62 % (42-75); PLATELET COUNT 235 10^3/uL (130-400); RED CELL DISTRIBUTION WIDTH 17.2 % (10.0-14.5); WHITE BLOOD COUNT 9.5 10^3/uL (4.3-11.0)
[2019-09-24 16:51] LABS: POTASSIUM 4.3 MMOL/L (3.6-5.0)
[2019-09-24 16:52] LABS: CALCIUM 8.8 MG/DL (8.5-10.1)
[2019-09-24 16:56] LABS: CREATININE SERUM 1.41 MG/DL (0.60-1.30)
== END ==
LOC: LABNPT 16:30
PROVIDERS: ATTEND Internal Medicine
DX: I12.9 Hypertensive chronic kidney disease with stage 1 through stage 4 chronic kidney disease, or unspecified chronic kidney disease (principal); N18.9 Chronic kidney disease, unspecified; D69.6 Thrombocytopenia, unspecified
CPT/HCPCS: 80048; 85025

== ENCOUNTER → 2019-10-11 | Outpatient (CLI) | payer MEDICARE, MEDICAID ==
[~2019-10-11] MED LIST changes: +DIPH25CA79 PO; +DOCU-143 PO; +HYDR-3870 PO
--- NOTE | 2019-10-11 10:57 | Diagnostic Imaging Report ---
INDICATION: Left humerus fracture followup. TIME OF EXAM: 10:20 AM. COMPARISON: 09/24/2019. FINDINGS: A fracture at the neck of the humerus is noted. There appears to be some increase in the degree of displacement. The distal fracture fragment is displaced medially by approximately the width of the humeral head. The glenohumeral alignment is maintained. The acromioclavicular alignment is maintained. IMPRESSION: Proximal humerus fracture. There has been some increase in the degree of displacement since the prior radiographs from 09/24/2019. Dictated by: Dictated on workstation # [id number]
== END ==
LOC: ORTHO 10:03
PROVIDERS: ATTEND Orthopaedic Surgery
DX: S42.222A 2-part displaced fracture of surgical neck of left humerus, initial encounter for closed fracture (principal); X58.XXXA Exposure to other specified factors, initial encounter
CPT/HCPCS: 73030

== ENCOUNTER 2019-10-17 14:02 | Emergency (ER) | payer MEDICARE, MEDICAID ==
[~2019-10-17] VITALS: Ht 165.1 cm; Wt 136.1 kg
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
[2019-10-17] MEDS ORDERED: RX-ALBUTEROL INHALER (VENTOLIN HFA) 18 GM IH STA (14:19)
[2019-10-17 14:31] LABS: BASOPHILS # (AUTO) 0.1 10^3/uL (0.0-0.1); BASOPHILS % (AUTO) 1 % (0-10); EOSINOPHILS # (AUTO) 0.4 10^3/uL (0.0-0.3); EOSINOPHILS % (AUTO) 5 % (0-10); HEMATOCRIT 39 % (35-52); HEMOGLOBIN 12.5 G/DL (11.5-16.0); LYMPHOCYTES # (AUTO) 2.7 X 10^3 (1.0-4.0); LYMPHOCYTES % (AUTO) 32 % (12-44); MEAN CORPUSCULAR HEMOGLOBIN 28 PG (25-34); MEAN CORPUSCULAR HGB CONC 32 G/DL (32-36); MEAN CORPUSCULAR VOLUME 88 FL (80-99); MONOCYTES # (AUTO) 1.3 X 10^3 (0.0-1.0); MONOCYTES % (AUTO) 15 % (0-12); NEUTROPHILS % (AUTO) 48 % (42-75); PLATELET COUNT 164 10^3/uL (130-400); RED CELL DISTRIBUTION WIDTH 16.7 % (10.0-14.5); WHITE BLOOD COUNT 8.4 10^3/uL (4.3-11.0)
[2019-10-17] MEDS ORDERED: NS IV 500 ML 500 ML ONE (14:33)
[2019-10-17 14:35] LABS: ALBUMIN 3.1 GM/DL (3.2-4.5)
[2019-10-17 14:36] LABS: POTASSIUM 4.4 MMOL/L (3.6-5.0)
[2019-10-17 14:37] LABS: CALCIUM 9.4 MG/DL (8.5-10.1)
[2019-10-17 14:38] LABS: TOTAL PROTEIN 6.5 GM/DL (6.4-8.2)
[2019-10-17 14:40] LABS: BILIRUBIN,TOTAL 1.2 MG/DL (0.1-1.0)
--- NOTE | 2019-10-17 14:41 | ED General ---
General Chief Complaint: Altered Mental Status Stated Complaint: WEAKNESS Nursing Triage Note: PT BROUGHT IN BY [facility] FROM [facility] WITH COMPLAINT OF ALTERED MENTAL STATUS AND WEAKNESS. PT FINISHED ANTIBIOTICS ON FRIDAY FOR UTI. PER NH, PT IS MORE CONFUSED AND WEAK. Nursing Sepsis Screen: No Definite Risk Source of Information: Patient, EMS, Residential Records History of Present Illness Date Seen by Provider: Oct 17, 2019 Time Seen by Provider: 14:02 Initial Comments This 79-year-old woman is brought to the emergency room via EMS from [facility] for weakness and confusion. She recently completed antibiotics (uncertain which one) for urinary tract infection. Patient denies any cough, shortness of breath, new pain, nausea, vomiting, diarrhea, or fever. She has had no known coded exposures. Patient is alert, oriented, conversational, and answers questions appropriately. Allergies and Home Medications Allergies Coded Allergies: lisinopril (Verified Allergy, Unknown, 09/13/18) metolazone (Verified Allergy, Unknown, 09/13/18) oxycodone (Verified Allergy, Unknown, 09/13/18) tramadol (Verified Allergy, Unknown, 09/13/18) valdecoxib (Verified Allergy, Unknown, 09/13/18) codeine (Verified Adverse Reaction, Unknown, 09/13/18) fentanyl (Verified Adverse Reaction, Unknown, 09/13/18) hydrocodone (Verified Adverse Reaction, Unknown, 09/13/18) morphine (Verified Adverse Reaction, Unknown, 09/13/18) Home Medications Acetaminophen 500 Mg Tablet, 500-1,000 MG PO Q6H PRN for PAIN-MILD, (Reported) TAKES 1-2 (500MG) TABLETS Apixaban 5 Mg Tablet, 5 MG PO BID, (Reported) Atorvastatin Calcium 40 Mg Tablet, 40 MG PO HS, (Reported) Benzocaine 9 Gm Gel..gram., MM UD PRN for GUM PAIN, (Reported) Benzonatate 100 Mg Capsule, 100 MG PO TID PRN for COUGH, (Reported) Budesonide/Formoterol Fumarate 10.2 Gm Hfa.aer.ad, 2 PUFF INH BID, (Reported) Calcium Carbonate 300 Mg Tab.chew, 1-2 TAB.CHEW PO UD PRN for INDIGESTION, (Reported) Cefdinir 300 Mg Capsule, 300 MG PO BID Prescribed by: DORY LIN on 09/17/18946 Cyclobenzaprine HCl 5 Mg Tablet, 5 MG PO Q4H PRN for MUSCLE SPASMS, (Reported) Diltiazem HCl 120 Mg Cap.er.24h, 120 MG PO DAILY Prescribed by: RAJESH URRUTIA on 09/15/18 114 Diphenhydramine HCl 25 Mg Capsule, 25 MG PO Q4H PRN for ITCHING Prescribed by: SOFI GRISSOM on 09/24/191847 Docusate Sodium 100 Mg Capsule, 100 MG PO BID Prescribed by: SOFI GRISSOM on 09/24/191847 Doxycycline Hyclate 100 Mg Tablet, 100 MG PO BID Prescribed by: SHAHRIAR SAXENA on 10/17/19 1553 Estrogens Conjugated 30 Gm Cr, 0.3 MG VG MoWeFr, (Reported) Furosemide 40 Mg Tablet, 40 MG PO DAILY Prescribed by: RAJESH URRUTIA on 09/15/18 114 Furosemide 40 Mg Tablet, 40 MG PO DAILY Prescribed by: DORY LIN on 09/17/18946 Guaifenesin 1,200 Mg Tab.er.12h, 1,200 MG PO BID, (Reported) Hydrocodone/Acetaminophen 1 Each Tablet, 1 EACH PO Q4-6HR PRN for PAIN-MODERATE Prescribed by: SOFI GRISSOM on 09/24/191848 Isosorbide Mononitrate 30 Mg Tab.er.24h, 30 MG PO DAILY, (Reported) Levalbuterol Tartrate 15 Gm Hfa.aer.ad, 2 PUFF INH Q4H PRN for SHORTNESS OF BREATH, (Reported) Loratadine 10 Mg Tablet, 10 MG PO DAILY PRN for ITCHING, (Reported) Magnesium Oxide 400 Mg Tablet, 400 MG PO DAILY, (Reported) Menthol 5.8 Mg Lozenge, 1 LOZENGE MM UD PRN for COUGH, (Reported) Metoprolol Tartrate 25 Mg Tablet, 25 MG PO BID, (Reported) Nystatin 15 Gm Oint...g., 0 GM TOP BID Prescribed by: DORY LIN on 09/17/18946 Ondansetron 4 Mg Tab.rapdis, 4 MG PO Q4H PRN for NAUSEA/VOMITING-1ST LINE, (Reported) Ondansetron HCl 4 Mg Tablet, 4 MG PO Q6H PRN for NAUSEA/VOMITING-1ST LINE, (Reported) Potassium Chloride 20 Meq Tab.er.prt, 20 MEQ PO DAILY, (Reported) Sertraline HCl 50 Mg Tablet, 50 MG PO DAILY, (Reported) Spironolactone 25 Mg Tablet, 25 MG PO DAILY, (Reported) Tapentadol HCl 50 Mg Tablet, 50 MG PO Q6H PRN for PAIN UNRESOLVED BY TYLENOL Prescribed by: DORY LIN on 09/17/18 0947 [Dry Mouth Lozenge] , 1 LOZENGE MM UD PRN for DRY MOUTH, (Reported) [Magic Mouthwash] , 5-10 ML PO EVERY 6-8 HOURS PRN for SORE MOUTH, (Reported) SWISH AND SPIT Patient Home Medication List Home Medication List Reviewed: Yes Review of Systems Review of Systems Constitutional: see HPI, weakness EENTM: no symptoms reported Respiratory: no symptoms reported Cardiovascular: no symptoms reported Gastrointestinal: no symptoms reported Genitourinary: no symptoms reported : No Musculoskeletal: other (Generalized chronic musculoskeletal pain from arthritis) Skin: no symptoms reported Psychiatric/Neurological: See HPI Hematologic/Lymphatic: No Symptoms Reported Immunological/Allergic: no symptoms reported Past Vtjbake-Srfgdy-Thrlzc Hx Past Med/Social Hx: Reviewed Nursing Past Med/Soc Hx Patient Social History Alcohol Use: Denies Use Recreational Drug Use: No Smoking Status: Never a Smoker 2nd Hand Smoke Exposure: No Recent Foreign Travel: No Contact w/Someone Who Travel: No Recent Infectious Disease Expo: No Recent Hopitalizations: No Immunizations Up To Date Tetanus Booster (TDap): Less than 5yrs Date of Pneumonia Vaccine: Mar 24, 2018 Date of Influenza Vaccine: Apr 03, 2018 Seasonal Allergies Seasonal Allergies: No Past Medical History Surgeries: Yes (cervical fusion) Hysterectomy, Tubal Ligation Respiratory: Yes COPD Currently Using CPAP: No Currently Using BIPAP: No Cardiac: Yes (CHF) Congenital Heart Disease Neurological: No [employer] History: Menopausal Genitourinary: Yes (BLADDER REPAIR/CYSTOCOELE) Bladder Infection, Renal Failure, UTI-Chronic Gastrointestinal: Yes (RECTAL REPAIR/RECTOCOELE) Musculoskeletal: Yes Degenerate Disk Disease, Osteoporosis, Arthritis, Chronic Back Pain Endocrine: No Hypothyroidsim HEENT: No Cataract, Macular Degeneration, Double Vision Cancer: No Psychosocial: No Anxiety, Depression Integumentary: No Blood Disorders: No Adverse Reaction/Blood Tranf: No Family Medical History No Pertinent Family Hx PSH: -BILATERAL TOTAL KNEE REPLACEMENTS -BILATERAL ANKLE TENDON REPAIRS -CERVICAL SPINE FUSION X 2 -CYSTOCOELE/RECTOCOELE REPAIR -BILATERAL CATARACT SURGERY Physical Exam Vital Signs Vital Signs - First Documented 10/17/19 14:02 Pulse 105 Resp 20 B/P (MAP) 123/91 (102) Pulse Ox 96 O2 Delivery Room Air Capillary Refill : Less Than 3 Seconds Height, Weight, BMI Height: 5'5.00" Weight: 263lbs. 1.2oz. 119.689428um; 49.00 BMI Method:Stated General Appearance: No Apparent Distress, WD/WN HEENT: PERRL/EOMI, Normal ENT Inspection, Other (Oropharynx somewhat dry) Neck: Normal Inspection Respiratory: Lungs Clear, Normal Breath Sounds, No Accessory Muscle Use Cardiovascular: Regular Rate, Rhythm, No Murmur, Other (woody, chronic appearing lower extremity edema equal bilaterally) Gastrointestinal: Normal Bowel Sounds, Non Tender, Soft Extremity: Non Tender, Pedal Edema, Swelling Neurologic/Psychiatric: Alert, Oriented x3, No Motor/Sensory Deficits, Normal Mood/Affect, wire taper II-XII Norm as Tested Skin: Warm/Dry, Other (Erythema of the lower legs equal bilaterally) Progress/Results/Core Measures Suspected Sepsis Recent Fever Within 48 Hours: No Infection Criteria Present: None New/Unexplained Altered Menta: No Sepsis Screen: No Definite Risk SIRS Temperature: Pulse: 105 Respiratory Rate: 20 Laboratory Tests 10/17/19 14:17: White Blood Count 8.4 Blood Pressure 123 /91 Mean: 102 Laboratory Tests 10/17/19 14:17: Creatinine 1.32H, Platelet Count 164, Total Bilirubin 1.2H Results/Orders Lab Results Laboratory Tests Test 10/17/19 14:17 10/17/19 14:50 Range/Units White Blood Count 8.4 4.3-11.0 10^3/uL Red Blood Count 4.41 4.35-5.85 10^6/uL Hemoglobin 12.5 11.5-16.0 G/DL Hematocrit 39 35-52 % Mean Corpuscular Volume 88 80-99 FL Mean Corpuscular Hemoglobin 28 25-34 PG Mean Corpuscular Hemoglobin Concent 32 32-36 G/DL Red Cell Distribution Width 16.7 H 10.0-14.5 % Platelet Count 164 130-400 10^3/uL Mean Platelet Volume 12.0 H 7.4-10.4 FL Neutrophils (%) (Auto) 48 42-75 % Lymphocytes (%) (Auto) 32 12-44 % Monocytes (%) (Auto) 15 H 0-12 % Eosinophils (%) (Auto) 5 0-10 % Basophils (%) (Auto) 1 0-10 % Neutrophils # (Auto) 4.0 1.8-7.8 X 10^3 Lymphocytes # (Auto) 2.7 1.0-4.0 X 10^3 Monocytes # (Auto) 1.3 H 0.0-1.0 X 10^3 Eosinophils # (Auto) 0.4 H 0.0-0.3 10^3/uL Basophils # (Auto) 0.1 0.0-0.1 10^3/uL Sodium Level 141 135-145 MMOL/L Potassium Level 4.4 3.6-5.0 MMOL/L Chloride Level 101 98-107 MMOL/L Carbon Dioxide Level 28 21-32 MMOL/L Anion Gap 12 5-14 MMOL/L Blood Urea Nitrogen 16 7-18 MG/DL Creatinine 1.32 H 0.60-1.30 MG/DL Estimat Glomerular Filtration Rate 39 BUN/Creatinine Ratio 12 Glucose Level 81 70-105 MG/DL Calcium Level 9.4 8.5-10.1 MG/DL Corrected Calcium 10.1 8.5-10.1 MG/DL Magnesium Level 1.7 1.6-2.4 MG/DL Total Bilirubin 1.2 H 0.1-1.0 MG/DL Aspartate Amino Transf (AST/SGOT) 29 5-34 U/L Alanine Aminotransferase (ALT/SGPT) 11 0-55 U/L Alkaline Phosphatase 144 H 40-136 U/L C-Reactive Protein High Sensitivity 1.35 H 0.00-0.50 MG/DL B-Type Natriuretic Peptide 568.5 H <100.0 PG/ML Total Protein 6.5 6.4-8.2 GM/DL Albumin 3.1 L 3.2-4.5 GM/DL Thyroid Stimulating Hormone (TSH) 2.40 0.35-4.94 UIU/ML Free Thyroxine 1.04 0.70-1.48 NG/DL Urine Color YELLOW Urine Clarity CLEAR Urine pH 7.0 5-9 Urine Specific [place] 1.010 L 1.016-1.022 Urine Protein NEGATIVE NEGATIVE Urine Glucose (UA) NEGATIVE NEGATIVE Urine Ketones NEGATIVE NEGATIVE Urine Nitrite NEGATIVE NEGATIVE Urine Bilirubin NEGATIVE NEGATIVE Urine Urobilinogen 0.2 < = 1.0 MG/DL Urine Leukocyte Esterase NEGATIVE NEGATIVE Urine RBC (Auto) NEGATIVE NEGATIVE Urine RBC 0-2 /HPF Urine WBC NONE /HPF Urine Squamous Epithelial Cells 0-2 /HPF Urine Crystals PRESENT H /LPF Urine Amorphous Sediment FEW MAXINE URATES H /LPF Urine Bacteria NEGATIVE /HPF Urine Casts NONE /LPF Urine Mucus NEGATIVE /LPF Urine Culture Indicated NO My Orders Orders - SHAHRIAR NOBLE MD Chest 1 View, Ap/Pa Only (10/17/19 14:19) BNP (10/17/19 14:19) Cbc With Automated Diff (10/17/19 14:19) Comprehensive Metabolic Panel (10/17/19 14:19) Hs C Reactive Protein (10/17/19 14:19) Magnesium (10/17/19 14:19) Thyroid Stimulating Hormone (10/17/19 14:19) Ua Culture If Indicated (10/17/19 14:19) Ed Iv/Invasive Line Start (10/17/19 14:19) O2 (10/17/19 14:19) Monitor-Rhythm Ecg Trace Only (10/17/19 14:19) Free T4 (Free Thyroxine) (10/17/19 14:19) Rx-Albuterol Inhaler (Rx-Ventolin Hfa) (10/17/19 14:19) Ns Iv 500 Ml (Sodium Chloride 0.9%) (10/17/19 14:33) Ceftriaxone For Iv Use (Rocephin For I (10/17/19 15:45) Doxycycline Hyclate Tablet (Vibramycin T (10/17/19 16:00) Medications Given in ED Current Medications Medications Dose Ordered Sig/Teodora Route Start Time Stop Time Status Last Admin Dose Admin Ceftriaxone Sodium 1000 mg/ Sterile Water 10 ml @ 200 mls/hr ONCE ONCE IV 10/17/19 15:45 10/17/19 15:47 DC 10/17/19 15:59 200 MLS/HR Doxycycline Hyclate 100 mg ONCE ONCE PO 10/17/19 16:00 10/17/19 16:01 DC 10/17/19 15:59 100 MG Sodium Chloride 500 ml @ ud STK-MED ONCE .ROUTE 10/17/19 14:33 10/17/19 14:37 DC 10/17/19 14:41 500 MLS/HR Vital Signs/I&O 10/17/19 14:02 Pulse 105 Resp 20 B/P (MAP) 123/91 (102) Pulse Ox 96 O2 Delivery Room Air Capillary Refill : Less Than 3 Seconds Blood Pressure Mean: 102 Progress Note : Time: 15:51 Progress Note Patient feels improved after receiving 500 mL normal saline bolus. She wants to go home. There was questionable left lower lung infiltrate and/or effusion. Labs did not suggest a significant infection. Rocephin and doxycycline are being administered as a precaution. She will be discharged back to the care home. Diagnostic Imaging Diagonstic Imaging: Xray Plain Films/CT/US/NM/MRI: chest Comments Chest x-ray viewed by me and report reviewed. See report below: NAME: MAUDE MORALES [facility] REC#: [id number] PT STATUS: REG ER : 1940 PHYSICIAN: SHAHRIAR NOBLE MD ADMIT DATE: 10/17/19/ER Signed Date of Exam:10/17/19 CHEST 1 VIEW, AP/PA ONLY INDICATION: Weakness. Confusion. EXAMINATION: Portable chest. FINDINGS: There is consolidated infiltrate in the left lower lung with left basilar effusion. There is a small amount of fluid in the right major fissure as well with perihilar atelectasis. The heart is enlarged. Interstitial markings are slightly prominent, bilaterally. IMPRESSION: 1. Infiltrate and left basilar effusion likely representing pneumonia. 2. Cardiomegaly with slight prominence of interstitial markings which may represent a small degree of pulmonary edema as well. Dictated by: Dictated on workstation # [id number] Dict: 10/17/19 1457 Trans: 10/17/19 1527 [facility] [id number] Interpreted by: CANDIDA ESPARZA MD Electronically signed by: CANDIDA ESPARZA MD 10/17/19 1527 Departure Impression Primary Impression: Left pulmonary infiltrate on CXR Additional Impression: Generalized weakness Disposition: 01 HOME, SELF-CARE Condition: Improved Departure-Patient Inst. Decision time for Depature: 15:51 Referrals: RAMIRO LEE MD (PCP/Family) Primary Care Physician Patient Instructions: Pneumonia, Adult (DC) Add. Discharge Instructions: Complete your antibiotic as prescribed. Follow-up with Dr. Lee or Jenni early next week. Return to the emergency room if you have worsening symptoms. All discharge instructions reviewed with patient and/or family. Voiced understanding. Scripts Doxycycline Hyclate (Doxycycline Hyclate) 100 Mg Tablet 100 MG PO BID, #20 TAB 0 Refills Prov: SHAHRIAR NOBLE MD 10/17/19 Copy Copies To 1: RAMIRO LEE MD Copies To 2: JENNI AMEZCUA JOSHUA T MD Oct 17, 2019 14:41
[2019-10-17 14:42] LABS: CREATININE SERUM 1.32 MG/DL (0.60-1.30)
[2019-10-17 14:45] LABS: MAGNESIUM 1.7 MG/DL (1.6-2.4)
[2019-10-17 14:57] LABS: BILIRUBIN,URINE NEGATIVE (NEGATIVE); CLARITY,URINE CLEAR; COLOR,URINE YELLOW; GLUCOSE, URINE (UA) NEGATIVE (NEGATIVE); KETONES,URINE NEGATIVE (NEGATIVE); LEUKOCYTE ESTERASE ,URINE NEGATIVE (NEGATIVE); NITRITE,URINE NEGATIVE (NEGATIVE); PROTEIN,URINE NEGATIVE (NEGATIVE)
--- NOTE | 2019-10-17 15:03 | Diagnostic Imaging Report ---
INDICATION: Weakness. Confusion. EXAMINATION: Portable chest. FINDINGS: There is consolidated infiltrate in the left lower lung with left basilar effusion. There is a small amount of fluid in the right major fissure as well with perihilar atelectasis. The heart is enlarged. Interstitial markings are slightly prominent, bilaterally. IMPRESSION: 1. Infiltrate and left basilar effusion likely representing pneumonia. 2. Cardiomegaly with slight prominence of interstitial markings which may represent a small degree of pulmonary edema as well. Dictated by: Dictated on workstation # [id number]
[2019-10-17 15:07] LABS: FREE T4 (FREE THYROXINE) 1.04 NG/DL (0.70-1.48)
[2019-10-17 15:11] LABS: AMORPHOUS SEDIMENT,UR FEW AMOR URATES /LPF; BACTERIA,URINE NEGATIVE /HPF; RBC,URINE 0-2 /HPF; SQUAMOUS EPITHELIAL CELL,UR 0-2 /HPF
[2019-10-17] MEDS ORDERED: cefTRIAXone FOR IV USE 1,000 MG in WATER (STERILE) FOR INJECTION 10 ML IV ONE (15:45)
[2019-10-17] MEDS ORDERED: DOXY100T2 PO (15:53)
[2019-10-17] MEDS ORDERED: DOXYCYCLINE 100 MG (VIBRAMYCIN) TABLET PO ONE (16:00)
--- NOTE | 2019-10-17 19:14 | NUR ---
[facility] contacted at this time regarding transport, spoke with VANDANA Marino who states they are waiting to get in contact of their paramedical aide.
--- NOTE | 2019-10-17 20:58 | NUR ---
[facility] contacted regarding transport back to facility. Spoke with VANDANA Stanley who states transport is on the way.
[2019-10-17 21:44] VITALS: BP 122/88
== END 2019-10-17 21:33 | disposition home or self-care (01) ==
LOC: EDUNIT# 14:02 → ER 14:02
DX: R91.8 Other nonspecific abnormal finding of lung field (principal); R53.1 Weakness; J44.9 Chronic obstructive pulmonary disease, unspecified; I50.9 Heart failure, unspecified; F41.9 Anxiety disorder, unspecified; F32.9 Major depressive disorder, single episode, unspecified; G89.29 Other chronic pain; M54.9 Dorsalgia, unspecified; Z79.891 Long term (current) use of opiate analgesic; Z88.5 Allergy status to narcotic agent; Z88.8 Allergy status to other drugs, medicaments and biological substances; Z86.73 Personal history of transient ischemic attack (TIA), and cerebral infarction without residual deficits; Z88.6 Allergy status to analgesic agent; Z79.01 Long term (current) use of anticoagulants
CPT/HCPCS: 36415; 71045; 80053; 81000; 83735; 83880; 84439; 84443; 85025; 86141; 93041

== ENCOUNTER → 2019-11-01 | Outpatient (CLI) | payer MEDICARE, MEDICAID ==
--- NOTE | 2019-11-01 09:15 | Diagnostic Imaging Report ---
INDICATION: Followup left humerus fracture. TIME OF EXAM: 8:59 AM Comparison is made with prior radiograph from 10/11/2019. The comminuted impacted fracture of the proximal humerus is again noted. Distal fragment is displaced medially in comparison to the humeral head, similar to prior exam. There does appear to be some callus formation. Overall alignment is stable. Acromioclavicular line is normal. IMPRESSION: Healing proximal humerus fracture with moderate callus formation present. The fracture lines do remain visible however. Dictated by: Dictated on workstation # [id number]
== END ==
LOC: ORTHO 08:39
PROVIDERS: ATTEND Orthopaedic Surgery
DX: S42.232D 3-part fracture of surgical neck of left humerus, subsequent encounter for fracture with routine healing (principal)
CPT/HCPCS: 73030

== ENCOUNTER → 2019-11-22 | Outpatient (CLI) | payer MEDICARE, MEDICAID ==
--- NOTE | 2019-11-22 10:15 | Diagnostic Imaging Report ---
INDICATION: Humerus fracture. TIME OF EXAM: 9:31 AM. COMPARISON: Correlation is made with the prior radiograph from 11/01/2019. FINDINGS: The impacted displaced proximal humerus fracture appears similar to the prior exam. The distal fracture fragment does show some medial displacement in relation to the humeral head, similar to prior. There is some increasing sclerosis present. Fracture lines do remain partially visible. IMPRESSION: Healing proximal humerus fracture. Dictated by: Dictated on workstation # [id number]
== END ==
LOC: ORTHO 09:17
PROVIDERS: ATTEND Orthopaedic Surgery
DX: S42.232D 3-part fracture of surgical neck of left humerus, subsequent encounter for fracture with routine healing (principal)
CPT/HCPCS: 73030

== ENCOUNTER → 2019-12-14 | Outpatient (CLI) | payer MEDICARE, MEDICAID ==
[2019-12-14 19:35] LABS: BILIRUBIN,URINE NEGATIVE (NEGATIVE); CLARITY,URINE CLEAR; COLOR,URINE YELLOW; GLUCOSE, URINE (UA) NEGATIVE (NEGATIVE); KETONES,URINE NEGATIVE (NEGATIVE); LEUKOCYTE ESTERASE ,URINE 2+ (NEGATIVE); NITRITE,URINE POSITIVE (NEGATIVE); PROTEIN,URINE NEGATIVE (NEGATIVE)
[2019-12-14 20:13] LABS: WBC,URINE >100 /HPF
[2019-12-14 20:14] LABS: AMORPHOUS SEDIMENT,UR MOD AMOR URATES /LPF; BACTERIA,URINE LARGE /HPF
== END ==
LOC: LABNPT 19:23
PROVIDERS: ATTEND Internal Medicine
DX: Z01.89 Encounter for other specified special examinations (principal)
CPT/HCPCS: 81000; 87077; 87088

== ENCOUNTER → 2019-12-20 | Outpatient (CLI) | payer MEDICARE, MEDICAID ==
--- NOTE | 2019-12-20 10:33 | Diagnostic Imaging Report ---
INDICATION: Followup left shoulder fracture. TIME OF EXAM: 10:06 AM Correlation is made with prior exam from 11/22/2019. Acromioclavicular alignment is normal. The impacted proximal humerus fracture is again noted. Again, the distal fracture fragment is medially located in relation to the humeral head, similar to prior exam. Glenohumeral alignment is maintained. IMPRESSION: Stable left shoulder radiograph when compared with examination from one month earlier. Dictated by: Dictated on workstation # [id number]
== END ==
LOC: ORTHO 09:35
PROVIDERS: ATTEND Orthopaedic Surgery
DX: S42.232D 3-part fracture of surgical neck of left humerus, subsequent encounter for fracture with routine healing (principal); X58.XXXD Exposure to other specified factors, subsequent encounter
CPT/HCPCS: 73030

== ENCOUNTER → 2020-05-05 | Outpatient (CLI) | payer MEDICARE, MEDICAID ==
[~2020-05-05] MED LIST changes: -ISOS30TA3 PO; +ISOS30TA82 PO; +SERT-413 PO; -SERT50TA9 PO
[2020-05-05 20:20] LABS: BILIRUBIN,URINE NEGATIVE (NEGATIVE); CLARITY,URINE SL CLOUDY; COLOR,URINE YELLOW; GLUCOSE, URINE (UA) NEGATIVE (NEGATIVE); KETONES,URINE NEGATIVE (NEGATIVE); LEUKOCYTE ESTERASE ,URINE 2+ (NEGATIVE); NITRITE,URINE POSITIVE (NEGATIVE); PH,URINE 7.5 (5-9); PROTEIN,URINE NEGATIVE (NEGATIVE)
[2020-05-05 20:26] LABS: BACTERIA,URINE LARGE /HPF
== END ==
LOC: CVS 20:13
PROVIDERS: ATTEND Internal Medicine
DX: Z01.89 Encounter for other specified special examinations (principal)
CPT/HCPCS: 81000; 87077; 87088; 87186

== ENCOUNTER → 2020-06-03 | Outpatient (CLI) | payer MEDICARE, MEDICAID ==
[2020-06-03 11:19] LABS: BILIRUBIN,URINE NEGATIVE (NEGATIVE); CLARITY,URINE CLEAR; COLOR,URINE YELLOW; GLUCOSE, URINE (UA) NEGATIVE (NEGATIVE); KETONES,URINE NEGATIVE (NEGATIVE); LEUKOCYTE ESTERASE ,URINE NEGATIVE (NEGATIVE); NITRITE,URINE NEGATIVE (NEGATIVE); PROTEIN,URINE NEGATIVE (NEGATIVE)
[2020-06-03 11:27] LABS: BACTERIA,URINE MODERATE /HPF
== END ==
LOC: CVS 11:12
PROVIDERS: ATTEND Internal Medicine
DX: N18.9 Chronic kidney disease, unspecified (principal); N39.0 Urinary tract infection, site not specified
CPT/HCPCS: 81000

== ENCOUNTER → 2021-05-23 | Outpatient (CLI) | payer MEDICARE, MEDICAID ==
[~2021-05-23] MED LIST changes: +POTA-179 PO; -POTA20TA15 PO
== END ==
LOC: WOUNDCARE 13:37
PROVIDERS: ATTEND Family Medicine
DX: L89.153 Pressure ulcer of sacral region, stage 3 (principal); L22 Diaper dermatitis; F03.91 Unspecified dementia, unspecified severity, with behavioral disturbance; M62.3 Immobility syndrome (paraplegic); E44.0 Moderate protein-calorie malnutrition; N18.4 Chronic kidney disease, stage 4 (severe); R15.9 Full incontinence of feces
CPT/HCPCS: 99214

== ENCOUNTER → 2021-05-30 | Outpatient (CLI) | payer MEDICARE, MEDICAID | LOC: WOUNDCARE 14:41 | PROVIDERS: ATTEND Family Medicine | DX: I96 Gangrene, not elsewhere classified (principal); L89.153 Pressure ulcer of sacral region, stage 3; L22 Diaper dermatitis; F03.91 Unspecified dementia, unspecified severity, with behavioral disturbance; M62.3 Immobility syndrome (paraplegic); E44.0 Moderate protein-calorie malnutrition; N18.4 Chronic kidney disease, stage 4 (severe); R15.9 Full incontinence of feces; R32 Unspecified urinary incontinence | CPT/HCPCS: 99213 ==

== ENCOUNTER → 2021-06-06 | Outpatient (CLI) | payer MEDICARE, MEDICAID | LOC: WOUNDCARE 14:29 | PROVIDERS: ATTEND Family Medicine | DX: L89.153 Pressure ulcer of sacral region, stage 3 (principal); L22 Diaper dermatitis; F03.91 Unspecified dementia, unspecified severity, with behavioral disturbance; M62.3 Immobility syndrome (paraplegic); E44.0 Moderate protein-calorie malnutrition; N18.4 Chronic kidney disease, stage 4 (severe); I96 Gangrene, not elsewhere classified; R15.9 Full incontinence of feces | CPT/HCPCS: 99213 ==